=== PATIENT | female | born 1945 | race Caucasian/White ===

== ENCOUNTER 2017-01-29 09:24 | Inpatient (IN) | payer MEDICARE, OTHER ==
[2017-01-29] MEDS ORDERED: DiphenhydrAMINE 50 mg/ml Inj IVP STA (09:50)
--- NOTE | 2017-01-29 09:52 | ED PDOC ---
Arrival/HPI - General Chief Complaint: Headache Time Seen by Provider: 01/29/17 09:42 Historian: Family (who translated for patient) - History of Present Illness Narrative History of Present Illness (Text): 01/29/17 09:49 A 71 year old female presents to the emergency department complaining of a frontal headache for the past 3-4 days. History obtained through family who translated for patient. Patient notes blurry vision in bilateral eyes, right more than left. Patient denies any fever, chills, nausea, vomiting, diarrhea, abdominal pain, chest pain, shortness of breath or any other complaints. PMD: Dr. Gómez Time/Duration: Other (3-4 days) Symptom Course: Unchanged Quality: Other Context: Home Past Medical History - Provider Review Nursing Documentation Reviewed: Yes - Infectious Disease Hx of Infectious Diseases: None - Tetanus Immunization Tetanus Immunization: Unknown - Cardiac Hx Hypertension: Yes Hx Pacemaker: No - Pulmonary Hx Asthma: Yes (on nebulizer tx's at home) Hx Chronic Obstructive Pulmonary Disease (COPD): Yes Hx Emphysema: No - Neurological HX Cerebrovascular Accident: No Hx Dementia: No Hx Seizures: No - Renal Hx Renal Disorder: No - Hematological/Oncological Hx Cancer: No - Musculoskeletal/Rheumatological Hx Falls: No - Gastrointestinal Hx Gastroesophageal Reflux: No - Psychiatric Hx Depression: No Hx Emotional Abuse: No Hx Physical Abuse: No Hx Substance Use: No - Surgical History Hx Appendectomy: Yes Hx Cholecystectomy: Yes - Suicidal Assessment Feels Threatened In Home Enviroment: No Family/Social History - Physician Review Nursing Documentation Reviewed: Yes Family/Social History: No Known Family HX Smoking Status: Never Smoked Hx Alcohol Use: No Hx Substance Use: No Hx Substance Use Treatment: No Allergies/Home Meds Allergies/Adverse Reactions: Allergies cortisone Allergy (Verified 01/29/17 09:36) ITCHING Home Medications: Home Meds Medication Instructions Recorded Confirmed Albuterol HFA [Ventolin HFA 90 2 puff IH [id number] 06/15/12 01/29/17 mcg/actuation (8 g)] Metformin HCl [Fortamet] 500 mg PO DAILY 01/29/17 01/29/17 Metoprolol Succinate 50 mg PO DAILY 01/29/17 01/29/17 Review of Systems - Physician Review All systems were reviewed & negative as marked: Yes - Review of Systems Constitutional: absent: Fevers, Night Sweats Eyes: Vision Changes (blurry vision in both eye, right more than left) Respiratory: absent: SOB Cardiovascular: absent: Chest Pain Gastrointestinal: absent: Abdominal Pain, Diarrhea, Nausea, Vomiting Neurological: Headache Physical Exam Vital Signs Reviewed: Yes Vital Signs Temp Pulse Resp BP Pulse Ox 01/29/17 18:20 98.6 F 01/29/17 18:15 82 18 142/59 L 100 01/29/17 15:30 78 16 148/90 98 01/29/17 13:30 88 16 150/76 99 01/29/17 11:30 78 16 148/88 98 01/29/17 09:36 98.8 F 70 16 155/82 H 98 Temperature: Afebrile Blood Pressure: Hypertensive Pulse: Regular Respiratory Rate: Normal Appearance: Positive for: Well-Appearing, Non-Toxic, Comfortable Pain Distress: None Mental Status: Positive for: Alert and Oriented X 3 - Systems Exam Head: Present: Atraumatic, Normocephalic Pupils: Present: PERRL Extroacular Muscles: Present: EOMI Conjunctiva: Present: Normal Mouth: Present: Moist Mucous Membranes Neck: Present: Normal Range of Motion Respiratory/Chest: Present: Clear to Auscultation, Good Air Exchange. No: Respiratory Distress, Accessory Muscle Use Cardiovascular: Present: Regular Rate and Rhythm, Normal S1, S2. No: Murmurs Abdomen: Present: Normal Bowel Sounds. No: Tenderness, Distention, Peritoneal Signs Back: Present: Normal Inspection Upper Extremity: Present: Normal Inspection. No: Cyanosis, Edema Lower Extremity: Present: Normal Inspection. No: Edema Neurological: Present: GCS=15, CN II-XII Intact, Speech Normal Skin: Present: Warm, Dry, Normal Color. No: Rashes Psychiatric: Present: Alert, Oriented x 3, Normal Insight, Normal Concentration Medical Decision Making ED Course and Treatment: 01/29/17 09:49 Impression: A 71 year old female with a frontal headache and blurry vision. Plan: -- Head CT -- EKG -- Labs -- Urinalysis -- Benadryl and Reglan -- Reassess and disposition Progress Notes: EKG shows NSR at [address]/T wave changes. Interpreted by me. 01/29/17 10:23 Patients eye pressure measured 20 mm Hg in bilateral eyes. Report Date : 01/29/2017 11:00:15 PROCEDURE: CT HEAD WITHOUT CONTRAST. Dictator : Mata Martin MD IMPRESSION: No acute findings - Lab Interpretations Lab Results: 01/29/17 10:16 01/29/17 11:28 Lab Results 01/29/17 11:30: Urine Color Yellow, Urine Appearance Clear, Urine pH 7.5, Ur Specific [place] 1.015, Urine Protein Negative, Urine Glucose (UA) Negative, Urine Ketones Negative, Urine Blood Negative, Urine Nitrate Negative, Urine Bilirubin Negative, Urine Urobilinogen 0.2, Ur Leukocyte Esterase Negative 01/29/17 11:28: Free T4 1.27, Total T3 0.99, TSH 3rd Generation 2.24, Alcohol, Quantitative < 10 01/29/17 11:28: Sodium 140, Potassium 3.9, Chloride 101, Carbon Dioxide 29, Anion Gap 14, BUN 10, Creatinine 0.7, Est GFR ( Amer) > 60, Est GFR (Non- Af Amer) > 60, Random Glucose 104, Calcium 9.6, Magnesium 2.2, Total Bilirubin 0.5, AST 20, ALT 32, Alkaline Phosphatase 90, Lactate Dehydrogenase 486, Total Creatine Kinase 53, Troponin I < 0.01, Total Protein 7.1, Albumin 3.9, Globulin 3.2, Albumin/Globulin Ratio 1.2 01/29/17 10:16: PT 10.7, INR 0.99, APTT 25.6 01/29/17 10:16: WBC 7.9, RBC 4.63, Hgb 13.5, Hct 40.3, MCV 87.0, MCH 29.2, MCHC 33.5, RDW 14.8 H, Plt Count 231, MPV 10.8, Gran % 62.7, Lymph % (Auto) 29.7, [place] % (Auto) 7.3 H, Eos % (Auto) 0.0 L, Baso % (Auto) 0.3, Gran # 4.93, Lymph # 2.3, [place] # 0.6, Eos # 0.0, Baso # 0.02, ESR 17 I have reviewed the lab results: Yes - RAD Interpretation Radiology Orders: 01/29/17 09:50 HEAD W/O CONTRAST [CT] Stat 01/29/17 11:57 BRAIN WITHOUT CONTRAST [MRI] Stat 01/29/17 11:58 MRA HEAD WITHOUT CONTRAST [MRI] Stat CAROTID & VERTEBRAL DUPLEX [US] Routine - Medication Orders Current Medication Orders: Acetaminophen (Tylenol 325mg Tab) 650 mg PO Q6H PRN PRN Reason: Headache Aspirin (Ecotrin) 81 mg PO DAILY [facility] Atorvastatin Calcium (Lipitor) 40 mg PO DAILY [facility] Last Admin: 01/29/17 18:11 Dose: 40 mg Insulin Human Regular (Humulin R Med) 0 units SC ACHS [facility] PRN Reason: Protocol Last Admin: 01/29/17 17:00 Dose: Metoprolol Succinate (Toprol Xl) 50 mg PO DAILY [facility] Discontinued Medications Aspirin (Aspirin) 325 mg PO STAT STA Stop: 01/29/17 12:00 Last Admin: 01/29/17 12:19 Dose: 325 mg Diphenhydramine HCl (Benadryl) 25 mg IVP STAT STA Stop: 01/29/17 09:51 Last Admin: 01/29/17 10:30 Dose: 25 mg Metoclopramide HCl (Reglan) 10 mg IVP STAT STA Stop: 01/29/17 09:51 Last Admin: 01/29/17 10:30 Dose: 10 mg Pantoprazole Sodium (Protonix Inj) 40 mg IVP DAILY [facility] Pantoprazole Sodium (Protonix Inj) 40 mg IVP DAILY [facility] Pantoprazole Sodium (Protonix Inj) 40 mg IVP STAT STA Stop: 01/29/17 15:17 Last Admin: 01/29/17 15:34 Dose: 40 mg - Scribe Statement The provider has reviewed the documentation as recorded by the Breonna Robertson Provider Scribe Attestation: All medical record entries made by the Rylanibmary were at my direction and personally dictated by me. I have reviewed the chart and agree that the record accurately reflects my personal performance of the history, physical exam, medical decision making, and the department course for this patient. I have also personally directed, reviewed, and agree with the discharge instructions and disposition. Disposition/Present on Arrival - Present on Arrival Any Indicators Present on Arrival: No History of DVT/PE: No History of Uncontrolled Diabetes: No Urinary Catheter: No History of Decub. Ulcer: No History Surgical Site Infection Following: None - Disposition Have Diagnosis and Disposition been Completed?: Yes Diagnosis: Headache, Blurry vision Disposition: HOSPITALIZED
[2017-01-29 10:20] LABS: BASO # 0.02 K/mm3 (0.0-2.0); BASO % 0.3 % (0.0-3.0); GRAN # 4.93 (1.4-6.5); GRAN % 62.7 % (50.0-68.0); HEMOGLOBIN 13.5 g/dL (12.0-16.0); LYMPH # 2.3 (1.2-3.4); LYMPH % 29.7 % (22.0-35.0); MEAN CORPUSCULAR HEMOGLOBIN 29.2 pg (25.0-35.0); MEAN CORPUSCULAR HGB CONC 33.5 g/dl (31.0-37.0); MEAN PLATELET VOLUME 10.8 fl (7.0-11.0); MONO # 0.6 (0.1-0.6); MONO % 7.3 % (1.0-6.0); PLATELET COUNT 231 10^3/uL (120.0-450.0); RBC 4.63 10^6/uL (3.5-6.1); RED CELL DISTRIBUTION WIDTH 14.8 % (11.5-14.5); WHITE BLOOD COUNT 7.9 10^3/ul (4.5-11.0)
[2017-01-29 10:35] LABS: INR 0.99 (0.93-1.08); PARTIAL THROMBOPLASTIN TIME 25.6 Seconds (23.7-30.8); PROTHROMBIN TIME 10.7 Seconds (9.9-11.8)
--- NOTE | 2017-01-29 11:01 | CT ---
PROCEDURE: CT HEAD WITHOUT CONTRAST. HISTORY: rose COMPARISON: None available. TECHNIQUE: Axial computed tomography images were obtained through the head/brain without intravenous contrast. Radiation dose: Total exam DLP = 689 mGy-cm. This CT exam was performed using one or more of the following dose reduction techniques: Automated exposure control, adjustment of the mA and/or kV according to patient size, and/or use of iterative reconstruction technique. FINDINGS: HEMORRHAGE: No intracranial hemorrhage. BRAIN: No mass effect or edema. Chronic microvascular changes. Mild atrophy VENTRICLES: Unremarkable. No hydrocephalus. CALVARIUM: Unremarkable. PARANASAL SINUSES: Unremarkable as visualized. No significant inflammatory changes. MASTOID AIR CELLS: Unremarkable as visualized. No inflammatory changes. OTHER FINDINGS: None. IMPRESSION: No acute findings
[2017-01-29 11:36] LABS: PH,URINE 7.5 (4.7-8.0); URINE BILIRUBIN NEGATIVE (NEGATIVE); URINE BLOOD NEGATIVE (NEGATIVE); URINE GLUCOSE (UA) NEGATIVE (NEGATIVE); URINE LEUKOCYTE ESTERASE NEGATIVE Leu/uL (NEGATIVE); URINE NITRATE NEGATIVE (NEGATIVE); URINE PROTEIN NEGATIVE mg/dL (<30 mg/dL); URINE UROBILINOGEN 0.2 E.U./dL (<1 E.U./dL)
[2017-01-29 11:39] LABS: URINE APPEARANCE CLEAR (CLEAR); URINE COLOR YELLOW (YELLOW)
[2017-01-29 11:43] LABS: ALB/GLOB RATIO 1.2 (1.1-1.8); ALBUMIN 3.9 g/dL (3.0-4.8); ALT/SGPT 32 U/L (7-56); AST/SGOT 20 U/L (15-39); BLOOD UREA NITROGEN 10 mg/dL (7-21); CALCIUM 9.6 mg/dL (8.4-10.5); GFR AFRICAN-AMERICAN > 60; GFR NON-AFRICAN AMERICAN > 60; MAGNESIUM 2.2 mg/dL (1.7-2.2)
[2017-01-29 11:58] LABS: TROPONIN I < 0.01 ng/mL
--- NOTE | 2017-01-29 11:59 | CP.PCM.HP ---
History of Present Illness - History of Present Illness History of Present Illness: This is a 71Y Azeri speaking F with PMH HTN, NIDDM who came to ED for headache and vision changes x 3 days. She did not check her BP at this time. Nothing made it worse or better. The headache is located in the front of her head. She has never had this happen before. The patient denies CP, SOB, n/v/d, numbness/ tingling, fever, chills or dysuria. She reports her headache and vision changes have improved. She also admits to having some constipation and epigastric pain after eating. Patient reports she has never seen Certified Performance Technologist. PMH: HTN, NIDDM PSH: Cholecystectome Home meds: Metoprolol 50qd, Metformin 500mg daily ALL: Cortisone- itching SH: Denies EtOH, tobacco or drug use. Lives with family. Ambulates on own. FH: Denies PMD: Dr. Brink Present on Admission - Present on Admission Any Indicators Present on Admission: No Review of Systems - Constitutional Constitutional: Headache. absent: Chills, Fatigue, Weakness - EENT Eyes: absent: Change in Vision Ears: absent: Dizziness Nose/Mouth/Throat: absent: Dysphagia, Odynophagia - Cardiovascular Cardiovascular: absent: Chest Pain, Leg Edema, Leg Ulcers, Syncope - Respiratory Respiratory: absent: Dyspnea, Hemoptysis, Chest Congestion - Gastrointestinal Gastrointestinal: Constipation. absent: Abdominal Pain, Change in Stool Character, Diarrhea, Nausea, Vomiting - Musculoskeletal Musculoskeletal: absent: Arthralgias, Numbness, Tingling - Integumentary Integumentary: absent: Change in Pigmentation, Changing Lesions - Neurological Neurological: absent: Numbness, Syncope, Tingling, Vertigo, Weakness - Psychiatric Psychiatric: absent: Anxiety, Depression Past Patient History - Infectious Disease Hx of Infectious Diseases: None - Tetanus Immunizations Tetanus Immunization: Unknown - Past Social History Smoking Status: Never Smoked - CARDIAC Hx Hypertension: Yes Hx Pacemaker: No - PULMONARY Hx Asthma: Yes (on nebulizer tx's at home) Hx Chronic Obstructive Pulmonary Disease (COPD): Yes Hx Emphysema: No - NEUROLOGICAL HX Cerebrovascular Accident: No Hx Dementia: No Hx Seizures: No - RENAL Hx Chronic Kidney Disease: No - HEMATOLOGICAL/ONCOLOGICAL Hx Cancer: No - MUSCULOSKELETAL/RHEUMATOLOGICAL Hx Falls: No - GASTROINTESTINAL Hx Gastroesophageal Reflux: No - PSYCHIATRIC Hx Depression: No Hx Emotional Abuse: No Hx Physical Abuse: No Hx Substance Use: No - SURGICAL HISTORY Hx Appendectomy: Yes Hx Cholecystectomy: Yes Meds Allergies/Adverse Reactions: Allergies Allergy/AdvReac Type Severity Reaction Status Date / Time cortisone Allergy ITCHING Verified 01/29/17 09:36 Physical Exam - Constitutional Appears: No Acute Distress - Head Exam Head Exam: ATRAUMATIC, NORMAL INSPECTION, NORMOCEPHALIC - Eye Exam Eye Exam: Normal appearance Pupil Exam: NORMAL ACCOMODATION, PERRL - ENT Exam ENT Exam: Mucous Membranes Moist - Neck Exam Neck exam: Positive for: Normal Inspection - Respiratory Exam Respiratory Exam: Clear to Auscultation Bilateral, NORMAL BREATHING PATTERN. absent: Rhonchi, Wheezes, Stridor - Cardiovascular Exam Cardiovascular Exam: REGULAR RHYTHM, +S1, +S2. absent: Diastolic murmur, Gallop , Irregular Rhythm, Rubs, Systolic Murmur - GI/Abdominal Exam GI & Abdominal Exam: Normal Bowel Sounds, Soft, Tenderness (epigastric). absent : Hernia, Mass, Rigid - Extremities Exam Extremities exam: Positive for: normal inspection. Negative for: calf tenderness, tenderness - Neurological Exam Neurological exam: Alert, CN II-XII Intact - Psychiatric Exam Psychiatric exam: Normal Affect, Normal Mood - Skin Skin Exam: Dry, Intact, Normal Color Results - Vital Signs Recent Vital Signs: Last Vital Signs Temp 98.8 F 01/29/17 09:36 Pulse 70 01/29/17 09:36 Resp 16 01/29/17 09:36 BP 155/82 H 01/29/17 09:36 Pulse Ox 98 01/29/17 09:36 - Labs Result Diagrams: 01/29/17 10:16 01/29/17 11:28 Labs: Laboratory Results - last 24 hr 01/29/17 01/29/17 01/29/17 10:16 10:16 11:28 WBC 7.9 RBC 4.63 Hgb 13.5 Hct 40.3 MCV 87.0 MCH 29.2 MCHC 33.5 RDW 14.8 H Plt Count 231 MPV 10.8 Gran % 62.7 Lymph % (Auto) 29.7 [place] % (Auto) 7.3 H Eos % (Auto) 0.0 L Baso % (Auto) 0.3 Gran # 4.93 Lymph # 2.3 [place] # 0.6 Eos # 0.0 Baso # 0.02 ESR 17 PT 10.7 INR 0.99 APTT 25.6 Sodium 140 Potassium 3.9 Chloride 101 Carbon Dioxide 29 Anion Gap 14 BUN 10 Creatinine 0.7 Est GFR ( Amer) > 60 Est GFR (Non-Af Amer) > 60 Random Glucose 104 Calcium 9.6 Magnesium 2.2 Total Bilirubin 0.5 AST 20 ALT 32 Alkaline Phosphatase 90 Lactate Dehydrogenase 486 Total Creatine Kinase 53 Troponin I < 0.01 Total Protein 7.1 Albumin 3.9 Globulin 3.2 Albumin/Globulin Ratio 1.2 Urine Color Urine Appearance Urine pH Ur Specific [place] Urine Protein Urine Glucose (UA) Urine Ketones Urine Blood Urine Nitrate Urine Bilirubin Urine Urobilinogen Ur Leukocyte Esterase 01/29/17 11:30 WBC RBC Hgb Hct MCV MCH MCHC RDW Plt Count MPV Gran % Lymph % (Auto) [place] % (Auto) Eos % (Auto) Baso % (Auto) Gran # Lymph # [place] # Eos # Baso # ESR PT INR APTT Sodium Potassium Chloride Carbon Dioxide Anion Gap BUN Creatinine Est GFR ( Amer) Est GFR (Non-Af Amer) Random Glucose Calcium Magnesium Total Bilirubin AST ALT Alkaline Phosphatase Lactate Dehydrogenase Total Creatine Kinase Troponin I Total Protein Albumin Globulin Albumin/Globulin Ratio Urine Color Yellow Urine Appearance Clear Urine pH 7.5 Ur Specific [place] 1.015 Urine Protein Negative Urine Glucose (UA) Negative Urine Ketones Negative Urine Blood Negative Urine Nitrate Negative Urine Bilirubin Negative Urine Urobilinogen 0.2 Ur Leukocyte Esterase Negative Assessment & Plan - Assessment and Plan (Free Text) Assessment: This is a 71Y Azeri speaking F with PMH HTN, NIDDM who came to ED for headache and vision changes x 3 days. Plan: 1. Headache/Vision changes - r/o cardiac or neuro etiology - Head CT negative - EKG showed NSR - Lipid panel normal - Thyroid studies normal - Troponin neg x 1- will trend - Cardio Consulted - Neuro consulted - MRI brain, MRA head - Carotid doppler - Echo 2. NIDDM - ISS, BGM ACHS - HH diet/Carb cons diet - HgbA1c pending 3. HTN - Continue Metoprolol 50qq GI ppx: Protonix DVT ppx: SCDs Case seen, discussed and reviewed with attending Marco Valera PGY2 - Date & Time Date: 01/29/17 Time: 15:42
[2017-01-29 14:25] LABS: HDL CHOLESTEROL 56 mg/dL (29-60)
[2017-01-29 14:35] LABS: LDL CHOLESTEROL 103 mg/dL (0-129)
[2017-01-29 14:38] LABS: FREE T4 1.27 ng/dL (0.78-2.19)
[2017-01-29 14:52] LABS: T3 0.99 ng/mL (0.97-1.69)
[2017-01-29] MEDS: Insulin Reg-MEDIUM-Coverage SC SCH ×2 (17:00→22:23)
--- NOTE | 2017-01-29 17:11 | US ---
PROCEDURE: Carotid artery duplex ultrasound HISTORY: Carotid stenosis TIA PHYSICIAN(S): Fady Osullivan MD. TECHNIQUE: Duplex sonography and color-flow Doppler were used to evaluate the carotid bifurcations and limited segments of the vertebral arteries bilaterally. The exam is somewhat limited by tortuous vessels. FINDINGS: There is mild smooth hypoechoic plaque noted at the carotid bifurcations bilaterally. The peak systolic velocity in the proximal right internal carotid artery is 76 cm/sec. This corresponds to a 20 to 39% proximal right ICA stenosis. Normal systolic velocities are noted in the proximal right external carotid artery. There is antegrade flow in the right vertebral artery. The peak systolic velocity in the proximal left internal carotid artery is 76 cm/sec. This corresponds to a 20 to 39% proximal left ICA stenosis. Normal systolic velocities are noted in the proximal left external carotid artery. There is antegrade flow in the left vertebral artery. IMPRESSION: 1. Bilateral 20-39% proximal ICA stenoses. 2. Antegrade flow in both vertebral arteries.
--- NOTE | 2017-01-29 19:49 | CON ---
DATE: 01/29/2017 HISTORY OF PRESENT ILLNESS: The patient is a 71-year-old woman with a history of diabetes mellitus as well as bronchospasm and hypertension, who presents with a headache as well as chest pain. Her chest pain is described as epigastric and focal in nature. The patient has no previous cardiac history. She does describe a headache with blurry vision. No previous myocardial infarction or heart condition noted. SOCIAL HISTORY: Negative smoker. REVIEW OF SYSTEMS: No additional symptoms from above. PHYSICAL EXAMINATION: VITAL SIGNS: Blood pressure is 148/88, heart rate in the 70s, normal sinus rhythm. NECK: Negative JVD. LUNGS: Without rales. HEART: Reveals S1 and S2. EXTREMITIES: Without edema. EKG shows normal sinus rhythm with no acute changes. LABORATORY DATA: Hemoglobin is 13.5. Troponins negative x1. IMPRESSION: 1. Chest pain which is atypical and more likely from gastrointestinal source. 2. No evidence for acute coronary syndrome. 3. Headache. 4. Diabetes mellitus. 5. Blurry vision. 6. Obesity. 7. History of bronchospasm. Given these findings, we will obtain serial troponins. An echocardiogram has been ordered. A trial of Protonix has been ordered. Fady Ibarra MD
[2017-01-29 21:23] VITALS: BMI 30.2
[2017-01-29] MEDS ORDERED: EPINEPHrine 1 mg/ml (1:1000) Inj ONE (21:25)
[2017-01-29 23:33] VITALS: O2SAT 97
--- NOTE | 2017-01-30 01:22 | CON ---
REASON FOR CONSULTATION: Headache. HISTORY OF PRESENT ILLNESS: The patient is a 71-year-old female who has been asked for evaluation of headaches. The patient said that she is having blurred vision over the last 3 days mostly on the right side. She was also experiencing headache mostly in front of the head on the right side. It was pressure like. The headache was not associated with any nausea, vomiting, photophobia or phonophobia. There are no visual changes and the headache was not getting better, she decided to come to the emergency room. She denies any focal weakness in the arms or legs. Never lost her vision in one eye or the other. REVIEW OF SYSTEMS: Denies any chest pain, shortness of breath or abdominal pain. She does have some constipation. Denies any diarrhea, dysuria, cough, or sputum production. PAST MEDICAL HISTORY: Includes hypertension and diabetes mellitus. PAST SURGICAL HISTORY: Includes cholecystectomy. MEDICATIONS AT HOME: Include metoprolol and Metformin. ALLERGIES: CORTISONE. SOCIAL HISTORY: Denies smoking, use of alcohol, or illicit drugs. FAMILY HISTORY: Reviewed and noncontributory to the case. PHYSICAL EXAMINATION: GENERAL: The patient is an elderly pleasant female lying on the bed, in no acute distress. VITAL SIGNS: Her blood pressure is 142/59, heart rate is 82 per minute, breathing at the rate 16 per minute, and temperature is 98.6 degrees Fahrenheit. HEENT: Head is normocephalic, atraumatic. NECK: Supple. There are no carotid bruits. LUNGS: Clear. CARDIOVASCULAR: S1 and S2 audible. No murmurs. ABDOMEN: Soft and nontender. Bowel sounds are present. NEUROLOGIC: Mental Status: The patient is awake, alert and oriented to time, place and person. Speech is fluent. Naming and repetition are normal. Memory and concentration are intact. Cranial Nerve Examination: Pupils are 3 mm, bilaterally reactive to light. Visual marrero are full. Extraocular movements are intact. There is no facial asymmetry. Palate is upgoing bilaterally and tongue is midline. Motor Examination: Tone is normal and power is 5/5 bilaterally in all extremities, reflexes+1 and symmetrical. Plantars downgoing bilaterally. Cerebellar Examination: [id number] shows no dysmetria. The gait is deferred at the moment. Sensory Examination: Intact to soft touch and pin prick. LABORATORY DATA: Labs reviewed shows WBC of 7.9, hemoglobin 13.5, hematocrit 40.3 and platelets of 231. Her ESR is 17. Her INR is 0.99. Sodium is 140, potassium 3.9, chloride of 101, carbon dioxide of 29, BUN of 10, creatinine 0.7 and glucose of 104. She had MRI of the brain done which reviewed did not show any acute intracranial pathology; however, please followup the official report. IMPRESSION: Headaches associated with blurred vision, which seem to be getting better now. RECOMMENDATIONS: 1. Please follow the results of the MRI of the brain which was done earlier. 2. The patient had a carotid ultrasound which shows bilateral 20-39% proximal ICA stenosis which is nonsignificant. 3. The patient may be continued on Tylenol as needed for her headache. If her headache persists, she may be started on some nonsteroidal anti-inflammatory drugs like naproxen 500 mg twice a day on an as needed basis. 4. Please follow up the official results of the MRI of the brain. 5. Please continue supportive care on the treatment and if her vision continues to be blurry, consider Ophthalmology evaluation as well. 6. Please continue the treatment. Thank you for the opportunity to participate in the care of this patient. Sharmaine Macdonald MD
[2017-01-30] MEDS: Levalbuterol 0.63 MG/3 ML Inhal Soln UD IH SCH ×4 (02:54→19:53)
--- NOTE | 2017-01-30 05:20 | HP ---
HISTORY OF PRESENT ILLNESS: The patient is a 71-year-old obese female presented to the emergency room. According to the triage note, the patient came to the emergency room as a walk-in, complaining of right-sided headache, blurred vision and dizziness. The patient reported the symptoms to the triage nurse. According to the ER physician evaluation, the patient is complaining of right-sided and frontal headache for the last few days. The patient is also complaining of bilateral blurry vision, right more than the left and also dizzy. CODE STATUS: FULL CODE. LIVING WILL/ADVANCE DIRECTIVE: None. Height is 5 feet 1 inch. Weight is 160 pounds. BMI is 30.2. ALLERGIES: TO CORTISONE. HOME MEDICATIONS: Metoprolol 50 mg daily, metformin 500 mg daily, Ventolin HFA and MDI albuterol nebulizer. SOCIAL HISTORY: Negative for substance abuse. Negative for alcohol abuse. Negative for smoking. Negative for any communicable or traversable diseases. PAST MEDICAL HISTORY: Significant for hypertension, history of type 2 diabetes, history of asthma, history of appendectomy, cholecystectomy, history of anxiety. The patient's past medical history is also significant for history of normocytic anemia in the past, history of type 2 [id number]-cqriwxzgm diabetes mellitus. Past medical history is also significant for history of BI-RAD 2 mammogram, history of multiple bilateral breast cysts. 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 The patient's past medical history is significant for asthma, hypertension, anxiety disorder, history of pneumonia, history of anxiety disorder, history of atypical chest pain. The patient's past medical history is significant for history of atypical chest pain. The patient's past medical history is significant for history of anxiety disorder, history of chest pain, history of breast cysts, history of chronic obstructive pulmonary disease, history of asthma, history of exacerbation of chronic obstructive pulmonary disease. The patient's past medical history is also significant for history of syncope, history of dizziness, palpitations, hypertension, history of anxiety, history of obesity, history of acute exacerbation of asthma, history of normocytic anemia, history of asthmatic bronchitis, history of chronic obstructive pulmonary disease, obesity, hepatic cyst, history of acute exacerbation of chronic obstructive pulmonary disease, history of central renal cyst, history of chest pain, history of microvascular ischemic disease of the brain, history of left breast densities, history of few stress test done, which was negative for any ischemia. The patient is seen in stretcher #14 in the emergency room. The patient's menstrual history is not available. The patient is postmenopausal. PHYSICAL EXAMINATION: VITAL SIGNS: The patient's detailed history is obtained through the patient's friend and the . T-max is afebrile, heart rate 70-78, blood pressure 155/82, 148/88, respirations 18 and O2 saturation 98%. The patient was seen between the hours of 11 a.m. and 12 noon. HEENT: The patient's head examination, normocephalic, atraumatic. HEENT examination shows pink conjunctivae. Anicteric sclerae. No oropharyngeal lesion. NECK: No neck rigidity. No temporal tenderness noted. No neck rigidity. Soft carotid bruits. CHEST: Kyphosis. CARDIOVASCULAR: S1 and S2. Regular rhythm. LUNGS: Shows no rales, crackles or wheezing. ABDOMEN: Protuberant, obese. Positive bowel sounds. GENITALIA: Female. RECTAL: Deferred. EXTREMITIES: Shows no pitting edema. No calf tenderness. No James's signs. MUSCULOSKELETAL: Examination shows a body mass index of greater than 30. Cranial nerves II-XII are limited. GAIT: Examination is not tested. VASCULAR: Peripheral pulses. PSYCHIATRIC: Are not applicable. Cranial nerves II-XII are limited. DIAGNOSTICS: CBC is within normal limits. ESR is 17. PT and PTT is normal. Sodium 140, potassium 3.9, chloride 101, CO2 29, anion gap 14, BUN 10, creatinine 0.7. GFR is greater than 60. Glucose 91, hemoglobin A1c is 5.9, magnesium 2.2. Troponin is negative. Cholesterol 176, LDL 103, TSH 2.24, total T4 is pending, free T4 noted. Urine pH 7.5. Specific gravity 1.015. Leukocyte esterase is negative. Nitrite negative. Alcohol level less than 10. The patient had CAT scan of the head done which was negative, which shows chronic microvascular ischemic disease and cerebral cortical atrophy of the brain. EKG done in the emergency room shows sinus rhythm. Q-wave in 3. No ST elevation depression noted. IMPRESSION AND PLAN: 1. Right-sided headache with blurred vision and dizziness. Etiology undetermined. Questionable transient ischemic infarct. 2. Hypertension. 3. Type 2 mao-ruvbbhp-pieozcxdi diabetes mellitus. 4. Asthma. 5. Hypercholesterolemia with elevated LDL. 6. Bilateral 20-39% proximal internal carotid artery stenosis. 7. Chronic microvascular ischemic disease of the brain with cerebral cortical atrophy of the brain. 8. At present, the patient has been admitted to telemetry. Serial labs are ordered. Serial cardiac enzymes ordered. Consultation with Neurology and Cardiology ordered. The patient is started on aspirin 81 mg p.o. daily, regular insulin sliding scale coverage a.c. and at bedtime, Lipitor 40 mg daily, Protonix 40 mg daily for GI prophylaxis. The patient is ordered Protonix 40 mg daily. The patient is ordered resumption of metoprolol 50 mg which she is taking at home. The patient will be ordered nebulizer treatment for her asthma which will be Xopenex. The patient will be ordered Xopenex 0.63 mg every 6 hours. The patient will be ordered MRI of the brain. Repeat EKG, echo and Doppler. The patient will be started on heart healthy with moderate carbohydrate diet. The patient will be ordered out of bed to chair. The patient will be ordered DVT and GI prophylaxis. At present, the patient's condition, diagnosis, treatment plan, management plan discussed with the patient's friend who is acting as a next of kin. She also acted as a die fitter regarding the details of the patient's medical history. At present, the patient's further management will be dependent upon the patient's clinical condition, hemodynamic status, as per the patient's response to therapeutic intervention,as per the patient's diagnostic test results and as per recommendation by Cardiology and Neurology. The patient will also be ordered EEG. At present, the patient was seen in the emergency room in stretcher #14. The patient's further management will be dependent upon the patient's clinical condition, hemodynamic status, as per the patient's response to therapeutic intervention and data. Dictated and electronically signed. Miles Mac MD [facility] # [id number]
[2017-01-30] MEDS: Pantoprazole 40 mg EC Tab PO SCH ×2 (05:30→17:41)
[2017-01-30 07:58] LABS: FREE T4 1.13 ng/dL (0.78-2.19); T4 8.1 ug/dL (5.5-11.0)
[2017-01-30] MEDS: Insulin Reg-MEDIUM-Coverage SC SCH ×3 (08:38→17:39)
--- NOTE | 2017-01-30 08:39 | MRI ---
PROCEDURE: MRI BRAIN WITHOUT CONTRAST HISTORY: headache blurred vision COMPARISON: None. TECHNIQUE: Multiplanar, multisequence MR images of the brain were obtained without intravenous contrast enhancement. FINDINGS: HEMORRHAGE: None DWI: No evidence of an acute or early subacute infarction. BRAIN PARENCHYMA: No mass effect or edema. Chronic microvascular changes are seen in both hemispheres. There is mild atrophy VENTRICLES: Unremarkable. No hydrocephalus. CRANIUM: Unremarkable. ORBITS: Grossly unremarkable. PARANASAL SINUSES/MASTOIDS: Clear VASCULAR SYSTEM: Skull base flow voids intact. OTHER FINDINGS: None. IMPRESSION: No acute intracranial findings
--- NOTE | 2017-01-30 08:42 | MRI ---
PROCEDURE: Magnetic Resonance Angiography Brain HISTORY: blurred vision, headache COMPARISON: None available. TECHNIQUE: 3D time of flight MR angiography of the intracranial arteries was performed. Rotating maximum intensity projection images were generated. FINDINGS: INTERNAL CEREBRAL ARTERIES: Unremarkable. The skull base, petrous, cavernous and supraclinoid segments are bilaterally widely patient. ANTERIOR CEREBRAL ARTERIES: Unremarkable. A1 and A2 segments are widely patent. Smaller distal branches unremarkable, as visualized. MIDDLE CEREBRAL ARTERIES: Unremarkable. M1 and M2 segments are widely patent. Perisylvian branches grossly symmetric. POSTERIOR CIRCULATION: Basilar Artery: Unremarkable. Distal Vertebral Arteries: Unremarkable. Posterior Cerebral Arteries: Unremarkable. Posterior Inferior Cerebellar Arteries: Unremarkable. ANEURYSM/ VASCULAR MALFORMATIONS: None. OTHER FINDINGS: The report concurs with the preliminary [facility] report IMPRESSION: Unremarkable MR angiography of the brain.
[2017-01-30 09:01] LABS: BASO # 0.02 K/mm3 (0.0-2.0); BASO % 0.3 % (0.0-3.0); GRAN # 3.88 (1.4-6.5); GRAN % 59.5 % (50.0-68.0); LYMPH # 2.2 (1.2-3.4); LYMPH % 33.3 % (22.0-35.0); MEAN CELL VOLUME 88.7 fl (80.0-105.0); MEAN CORPUSCULAR HEMOGLOBIN 29.3 pg (25.0-35.0); MEAN PLATELET VOLUME 10.5 fl (7.0-11.0); MONO # 0.5 (0.1-0.6); MONO % 6.9 % (1.0-6.0); PLATELET COUNT 196 10^3/uL (120.0-450.0); RBC 4.44 10^6/uL (3.5-6.1); RED CELL DISTRIBUTION WIDTH 14.7 % (11.5-14.5); WHITE BLOOD COUNT 6.5 10^3/ul (4.5-11.0)
[2017-01-30] MEDS ORDERED: Metoprolol Succinate 50 mg XL Tab PO SCH (10:00)
[2017-01-30 11:52] LABS: ALB/GLOB RATIO 1.3 (1.1-1.8); ALBUMIN 3.7 g/dL (3.0-4.8); ALT/SGPT 26 U/L (7-56); AST/SGOT 44 U/L (15-39); BLOOD UREA NITROGEN 11 mg/dL (7-21); CALCIUM 9.2 mg/dL (8.4-10.5); GFR AFRICAN-AMERICAN > 60; GFR NON-AFRICAN AMERICAN > 60
--- NOTE | 2017-01-30 16:30 | PN ---
DATE: 01/30/2017 SUBJECTIVE: The patient's headache has gone. She still complains of occasional blurry vision. PHYSICAL EXAMINATION VITAL SIGNS: Blood pressure is 126/70, heart rate in the 80s. Normal sinus rhythm. NECK: Negative JVD. LUNGS: Without rales. HEART: S1, S2. EXTREMITIES: Without edema. LABORATORY DATA: Includes troponins are negative x2. Thyroid functions are normal. The hemoglobin is 13. Preliminary echocardiogram reveals good LV function with no LV outflow obstruction. Mildly elevated pulmonary pressures are noted. IMPRESSION: 1. Headache, which is now resolved. 2. No cardiac cause of her chest pain, which is now resolved with Protonix. 3. Diabetes mellitus. 4. Obesity. 5. History of bronchospasm. PLAN: Given these findings, we will continue Pepcid. We will DC telemetry. Because of her cardiac risk factors, I have discussed with the patient about an outpatient stress test which we will arrange. Fady Ibarra MD
--- NOTE | 2017-01-30 16:53 | CARD ---
APPROVED REPORT EXAM: Two-dimensional and M-mode echocardiogram with Doppler and color Doppler. INDICATION Chest Pain 2D DIMENSIONS Left Atrium (2D)4.0 (1.6-4.0cm)IVSd1.1 (0.7-1.1cm) LVDd4.0 (3.9-5.9cm)PWd1.3 (0.7-1.1cm) LVDs2.7 (2.5-4.0cm)FS (%) 32.8 % LVEF (%)61.7 (>50%) M-Mode DIMENSIONS Aortic Root3.00 (2.2-3.7cm)Aortic Cusp Exc.1.60 (1.5-2.0cm) Aortic Valve AoV Peak Pevwpffi485.0cm/sAoV VTI36.1cmAO Peak GR.11mmHg LVOT Peak Tuyjecbf362.0cm/sLVOT VTI27.20cmAO Mean GR.6mmHg Mitral Valve MV E Rsbbuojg21.4cm/sMV A Tuothksw47.4cm/sE/A ratio0.6 TDI Lateral E' Peak V12.30cm/sMedial E' Peak V8.68cm/sE/Lateral E'3.9 E/Medial E'5.6 Pulmonary Valve PV Peak Zfdnmkhn680.0cm/sPV Peak Grad.4mmHg Tricuspid Valve TR Peak Drupuajf971au/sRAP SZPNLPWO16crEuMM Peak Gr.25mmHg WIML90ojXz LEFT VENTRICLE The left ventricle is normal size. There is mild concentric left ventricular hypertrophy. The left ventricular function is normal. The left ventricular ejection fraction is within the normal range. There is normal LV segmental wall motion. Transmitral Doppler flow pattern is Grade I-abnormal relaxation pattern. RIGHT VENTRICLE The right ventricle is normal size. The right ventricle is mildly hypertrophied. The right ventricular systolic function is normal. ATRIA The left atrium size is normal. The right atrium size is normal. AORTIC VALVE The aortic valve is not well visualized. MITRAL VALVE The mitral valve is mildly thickened. TRICUSPID VALVE There is mild pulmonary hypertension. GREAT VESSELS The aortic root is normal in size. The IVC is normal in size and collapses >50% with inspiration. PERICARDIAL EFFUSION There is a small loculated anterior pericardial effusion. <Conclusion> The left ventricle is normal size. There is mild concentric left ventricular hypertrophy. The left ventricular function is normal. The left ventricular ejection fraction is within the normal range. There is normal LV segmental wall motion. Transmitral Doppler flow pattern is Grade I-abnormal relaxation pattern. There is mild pulmonary hypertension. There is a small loculated anterior pericardial effusion.
--- NOTE | 2017-01-30 17:01 | CARD ---
APPROVED REPORT EKG Measurement Heart [id number] <Conclusion> Normal sinus rhythm Normal ECG
--- NOTE | 2017-01-30 17:06 | CP.PCM.DIS ---
Provider - Provider Date of Admission: 01/29/17 13:10 Attending physician: Miles Mac MD Primary care physician: Cuba Gómez MD Consults: cardio-davis Neuro-badillo Time Spent in preparation of Discharge (in minutes): 40 Hospital Course - Lab Results Lab Results: Most Recent Lab Values WBC 6.5 10^3/ul (4.5-11.0) 01/30/17 06:30 RBC 4.44 10^6/uL (3.5-6.1) 01/30/17 06:30 Hgb 13.0 g/dL (12.0-16.0) 01/30/17 06:30 Hct 39.4 % (36.0-48.0) 01/30/17 06:30 MCV 88.7 fl (80.0-105.0) 01/30/17 06:30 MCH 29.3 pg (25.0-35.0) 01/30/17 06:30 MCHC 33.0 g/dl (31.0-37.0) 01/30/17 06:30 RDW 14.7 % (11.5-14.5) H 01/30/17 06:30 Plt Count 196 10^3/uL (120.0-450.0) 01/30/17 06:30 MPV 10.5 fl (7.0-11.0) 01/30/17 06:30 Gran % 59.5 % (50.0-68.0) 01/30/17 06:30 Lymph % (Auto) 33.3 % (22.0-35.0) 01/30/17 06:30 [place] % (Auto) 6.9 % (1.0-6.0) H 01/30/17 06:30 Eos % (Auto) 0.0 % (1.5-5.0) L 01/30/17 06:30 Baso % (Auto) 0.3 % (0.0-3.0) 01/30/17 06:30 Gran # 3.88 (1.4-6.5) 01/30/17 06:30 Lymph # 2.2 (1.2-3.4) 01/30/17 06:30 [place] # 0.5 (0.1-0.6) 01/30/17 06:30 Eos # 0.0 (0.0-0.7) 01/30/17 06:30 Baso # 0.02 K/mm3 (0.0-2.0) 01/30/17 06:30 ESR 17 mm/hr (0.0-20.0) 01/29/17 10:16 PT 10.7 Seconds (9.9-11.8) 01/29/17 10:16 INR 0.99 (0.93-1.08) 01/29/17 10:16 APTT 25.6 Seconds (23.7-30.8) 01/29/17 10:16 Sodium 139 mmol/L (132-148) 01/30/17 11:41 Potassium 3.8 mmol/L (3.6-5.0) 01/30/17 11:41 Chloride 104 mmol/L (98-107) 01/30/17 11:41 Carbon Dioxide 26 mmol/L (21-33) 01/30/17 11:41 Anion Gap 13 (10-20) 01/30/17 11:41 BUN 11 mg/dL (7-21) 01/30/17 11:41 Creatinine 0.7 mg/dL (0.5-1.4) 01/30/17 11:41 Est GFR ( Amer) > 60 01/30/17 11:41 Est GFR (Non-Af Amer) > 60 01/30/17 11:41 POC Glucose (mg/dL) 120 mg/dL (65-110) H 01/30/17 16:37 Random Glucose 111 mg/dL (70-110) H 01/30/17 11:41 Hemoglobin A1c 5.9 % (4.2-6.5) 01/29/17 13:55 Calcium 9.2 mg/dL (8.4-10.5) 01/30/17 11:41 Magnesium 2.2 mg/dL (1.7-2.2) 01/29/17 11:28 Total Bilirubin 0.6 mg/dL (0.2-1.3) 01/30/17 11:41 AST 44 U/L (15-39) H 01/30/17 11:41 ALT 26 U/L (7-56) 01/30/17 11:41 Alkaline Phosphatase 87 U/L (38-133) 01/30/17 11:41 Lactate Dehydrogenase 486 U/L (333-699) 01/29/17 11:28 Total Creatine Kinase 53 U/L (35-230) 01/29/17 11:28 Troponin I < 0.01 ng/mL 01/30/17 06:10 Total Protein 6.7 g/dL (5.8-8.3) 01/30/17 11:41 Albumin 3.7 g/dL (3.0-4.8) 01/30/17 11:41 Globulin 2.9 gm/dL 01/30/17 11:41 Albumin/Globulin Ratio 1.3 (1.1-1.8) 01/30/17 11:41 Triglycerides 94 mg/dL (35-160) 01/29/17 13:55 Cholesterol 176 mg/dL (130-200) 01/29/17 13:55 LDL Cholesterol Direct 103 mg/dL (0-129) 01/29/17 13:55 HDL Cholesterol 56 mg/dL (29-60) 01/29/17 13:55 Free T4 1.13 ng/dL (0.78-2.19) 01/30/17 06:10 Thyroxine (T4) 8.1 ug/dL (5.5-11.0) 01/30/17 06:10 Total T3 0.99 ng/mL (0.97-1.69) 01/29/17 11:28 TSH 3rd Generation 2.24 mIU/mL (0.46-4.68) 01/29/17 11:28 Urine Color Yellow (YELLOW) 01/29/17 11:30 Urine Appearance Clear (CLEAR) 01/29/17 11:30 Urine pH 7.5 (4.7-8.0) 01/29/17 11:30 Ur Specific [place] 1.015 (1.005-1.035) 01/29/17 11:30 Urine Protein Negative mg/dL (<30 mg/dL) 01/29/17 11:30 Urine Glucose (UA) Negative mg/dL (NEGATIVE) 01/29/17 11:30 Urine Ketones Negative mg/dL (NEGATIVE) 01/29/17 11:30 Urine Blood Negative (NEGATIVE) 01/29/17 11:30 Urine Nitrate Negative (NEGATIVE) 01/29/17 11:30 Urine Bilirubin Negative (NEGATIVE) 01/29/17 11:30 Urine Urobilinogen 0.2 E.U./dL (<1 E.U./dL) 01/29/17 11:30 Ur Leukocyte Esterase Negative Umm/uL (NEGATIVE) 01/29/17 11:30 Alcohol, Quantitative < 10 mg/dL (0-10) 01/29/17 11:28 RPR Nonreactive (NONREACTIVE) 01/29/17 13:55 - Hospital Course Hospital Course: 71F admitted for headache/vision changes,chest pain. Work up was negative for intracranial pathology, cardiac abnormalities, thyroid abnormalities, lab work mostly WNL- no gross abnormalities. Carotid U/S w/B/L 20-39% proximal ICA stenosis- non significant. Brain MRI, MRA and CT all negative for intracranial pathology. Pt seen/evaluated by neurology w/recs for Tylenol for DIAZ, possible NSAID, ophthalmology eval as outpatient, continue current mgmt. Pt seen/evaluated by cardiology- evaluation negative for cardiac cause of chest pain, likely GI source, ok to d/c from telemetry. Pt stable, ready for discharge home with outpatient follow up with primary and ophthalmology, echo pending, pt to follow up in Dr. Mac's office for results Plan for patient to see ophthalmology as an outpatient for evaluation. Diagnoses: Headache, vision changes, HTN, diabetes - Date & Time of H&P Date of H&P: 01/29/17 Time of H&P: 11:59 Discharge Exam - Head Exam Head Exam: ATRAUMATIC, NORMAL INSPECTION, NORMOCEPHALIC - Eye Exam Eye Exam: EOMI, Normal appearance, PERRL Pupil Exam: NORMAL ACCOMODATION, PERRL - ENT Exam ENT Exam: Mucous Membranes Moist, Normal Exam - Neck Exam Neck exam: Full Rom, Normal Inspection - Respiratory Exam Respiratory Exam: Clear to PA & Lateral, NORMAL BREATHING PATTERN, UNREMARKABLE - Cardiovascular Exam Cardiovascular Exam: REGULAR RHYTHM, +S1, +S2 - GI/Abdominal Exam GI & Abdominal Exam: Normal Bowel Sounds, Soft, Unremarkable. absent: Distended (obese), Tenderness - Extremities Exam Extremities exam: normal inspection - Back Exam Back exam: NORMAL INSPECTION - Neurological Exam Neurological exam: Alert, CN II-XII Intact, Oriented x3 - Psychiatric Exam Psychiatric exam: Normal Affect, Normal Mood - Skin Skin Exam: Dry, Intact, Normal Color, Warm Discharge Plan - Discharge Medications Prescriptions: Aspirin [Ecotrin] 81 mg PO DAILY #30 Aspirin [Ecotrin] 81 mg PO DAILY #30 tabec Atorvastatin [Lipitor] 40 mg PO DAILY #30 tab Atorvastatin [Lipitor] 40 mg PO HS #30 tab Famotidine [Pepcid] 20 mg PO DAILY #30 tab - Follow Up Plan Condition: GOOD Disposition: HOME/ ROUTINE Instructions: Tension Headache (DC), Acute Headache (DC) Additional Instructions: Please call an board turner to set up an outpatient appointment for eye evaluation. Please follow up with Dr Mac within 1-2 weeks after hospitalization for the results of your echocardiogram. You are being prescribed a medication to help lower your cholesterol in your blood, please take at night. You may take the aspirin and pepcid at any time daily. If you have a recurrence of symptoms, please return to the hospital. Referrals: Cuba Gómez MD [Primary Care Provider] - Miles Mac MD [Staff Provider] -
[2017-01-30 17:56] VITALS: BP 148/76; PULSE 73; RESP 18; TEMP 98.2
--- NOTE | 2017-01-31 | CARD ---
APPROVED REPORT EKG Measurement Heart [id number] 126P63 [id number] <Conclusion> Normal sinus rhythm Normal ECG
== END 2017-01-30 21:07 | disposition home or self-care (01) | DRG 103 ==
LOC: ED 09:24 → ERH 13:10 → 2RNO 18:42
PROVIDERS: ADMIT Internal Medicine; ATTEND Internal Medicine
DX: R51 Headache (principal); H53.8 Other visual disturbances; R07.89 Other chest pain; Z68.41 Body mass index [BMI] 40.0-44.9, adult; J44.9 Chronic obstructive pulmonary disease, unspecified; I10 Essential (primary) hypertension; I65.23 Occlusion and stenosis of bilateral carotid arteries; E11.9 Type 2 diabetes mellitus without complications; E66.9 Obesity, unspecified; F41.9 Anxiety disorder, unspecified; E78.00 Pure hypercholesterolemia, unspecified; Z79.84 Long term (current) use of oral hypoglycemic drugs

== ENCOUNTER 2017-02-12 06:50 | Day surgery (SDC) | payer MEDICARE, OTHER ==
[2017-02-09 11:33] VITALS: BMI 40.8
[2017-02-12 07:44] LABS: BASO # 0.02 K/mm3 (0.0-2.0); BASO % 0.3 % (0.0-3.0); GRAN # 4.61 (1.4-6.5); GRAN % 58.7 % (50.0-68.0); HEMATOCRIT 40.1 % (36.0-48.0); LYMPH # 2.6 (1.2-3.4); LYMPH % 33.4 % (22.0-35.0); MEAN CELL VOLUME 88.3 fl (80.0-105.0); MEAN CORPUSCULAR HEMOGLOBIN 29.3 pg (25.0-35.0); MEAN CORPUSCULAR HGB CONC 33.2 g/dl (31.0-37.0); MEAN PLATELET VOLUME 10.8 fl (7.0-11.0); MONO # 0.6 (0.1-0.6); MONO % 7.6 % (1.0-6.0); RED CELL DISTRIBUTION WIDTH 14.3 % (11.5-14.5); WHITE BLOOD COUNT 7.9 10^3/ul (4.5-11.0)
[2017-02-12 07:54] LABS: INR 1.01 (0.93-1.08); PARTIAL THROMBOPLASTIN TIME 27.3 Seconds (23.7-30.8)
[2017-02-12 07:55] LABS: BLOOD UREA NITROGEN 9 mg/dL (7-21); CALCIUM 9.4 mg/dL (8.4-10.5); CARBON DIOXIDE 25 mmol/L (21-33); CHLORIDE 106 mmol/L (98-107); CHOLESTEROL 106 mg/dL (130-200); GFR AFRICAN-AMERICAN > 60; GLUCOSE,RANDOM 99 mg/dL (70-110); POTASSIUM 3.7 mmol/L (3.6-5.0); SODIUM 143 mmol/L (132-148)
[2017-02-12] MEDS ORDERED: Lidocaine 2% Inj (20ml) ONE (08:50)
[2017-02-12] MEDS ORDERED: Midazolam 2 MG/2 ML VIAL ONE ×2 (09:03→09:11)
[2017-02-12] MEDS ORDERED: Sodium Chloride 0.9% 1,000 ML IV SCH (09:45)
[2017-02-12 10:02] VITALS: TEMP 98.1
[2017-02-12 11:31] VITALS: RESP 19; O2SAT 99
[2017-02-12 14:35] VITALS: BP 141/86; PULSE 74
--- NOTE | 2017-02-12 19:56 | CARDCATH ---
PROCEDURE DATE: 02/12/2017 PROCEDURE: 1. Left heart catheterization with coronary angiography and left ventriculogram. 2. The right femoral artery is cannulated with a 6-Swedish sheath. There were no complications. PERFORMING PHYSICIAN: Fady Ibarra MD HISTORY: The patient is a 71-year-old woman with multiple cardiac risk factors including diabetes mellitus, hypertension, and hypercholesterolemia, as well as obesity, who presents with chest pain and an abnormal stress test. Because of this, cardiac catheterization was recommended. FINDINGS: The findings on catheterization revealed a left ventricle that contracted normally. Estimated ejection fraction of 60%. Her coronary anatomy revealed a right dominant circulation. The RCA revealed an ectatic region in the proximal portion extending from the proximal to the midportion. The left main artery was unremarkable. The LAD and diagonal vessels revealed diffuse atherosclerosis without critical lesions. The circumflex artery and obtuse marginal branches were free of significant disease. Angio-Seal was used to close the femoral artery site. The patient tolerated the procedure well. SUMMARY: In summary, the procedure revealed single-vessel CAD with an ectatic proximal and mid RCA. LV function is normal. Given these findings, the patient needs to lose weight and undergo strict cardiac risk reduction program. Fady Ibarra MD
== END 2017-02-12 15:40 | disposition home or self-care (01) ==
LOC: CATH 06:50
PROVIDERS: ATTEND Internal Medicine Cardiovascular Disease
DX: I25.10 Atherosclerotic heart disease of native coronary artery without angina pectoris (principal); I10 Essential (primary) hypertension; E11.9 Type 2 diabetes mellitus without complications; E66.9 Obesity, unspecified; Z68.41 Body mass index [BMI] 40.0-44.9, adult; Z79.84 Long term (current) use of oral hypoglycemic drugs
CPT/HCPCS: 36415; 80048; 80061; 85025; 85610; 85730; 86850; 86900; 93458; 99152; C1760; C1769; C2629; J1644; J2250; J3010; J7040 ×2; Q9967

== ENCOUNTER 2018-04-11 10:03 | Inpatient (IN) | payer MEDICARE, OTHER ==
[2018-04-11] MEDS ORDERED: Morphine 4 mg/ml ISec IVP STA (10:24)
--- NOTE | 2018-04-11 10:28 | ED PDOC ---
Arrival/HPI - General Chief Complaint: Shortness Of Breath Time Seen by Provider: 04/11/18 10:15 Historian: Family (daughter) - History of Present Illness Narrative History of Present Illness (Text): 72 y/o w/ h/o HTN, diabetes asthma, appendectomy, cholecystectomy presenting to the Emergency department complaining of chest pain about 1 hour prior to arrival, shortness of breath since yesterday, black watery diarrhea since last night, and generalized weakness. Per the patient's daughter, they ate at an open buffet last night and patient started to have watery diarrhea about 4 hours after the meal which continued into the morning. The patient admits her last bowel movement was shortly after arrival in the ED as she "cannot hold it in." Her daughter notes patient has viscous, non-bloody, watery fluid coming out of mouth during her multiple episodes of emesis. Patient denies any history of ulcers, chest pain, shortness of breath, back pain, syncopal episodes, paresthesias or fevers at this time. PMD: Dr. 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 ) Symptom Onset: Sudden, Gradual Symptom Course: Unchanged Severity Level: Moderate Activities at Onset: Eating Context: Home Past Medical History - Provider Review Nursing Documentation Reviewed: Yes - Travel History Have you recently traveled outside [place] w/in the past 3 mons?: No - Infectious Disease Hx of Infectious Diseases: None - Tetanus Immunization Tetanus Immunization: Unknown - Cardiac Hx Hypertension: Yes Hx Pacemaker: No - Pulmonary Hx Asthma: Yes (on nebulizer tx's at home) Hx Chronic Obstructive Pulmonary Disease (COPD): Yes Hx Emphysema: No - Neurological Hx Paralysis: No - Renal Hx Renal Disorder: No - Endocrine/Metabolic Hx Diabetes Insipidus: Yes - Hematological/Oncological Hx Blood Transfusions: No - Musculoskeletal/Rheumatological Hx Musculoskeletal Disorders: No - Gastrointestinal Hx Gastroesophageal Reflux: No - Psychiatric Hx Emotional Abuse: No Hx Physical Abuse: No Hx Substance Use: No - Surgical History Hx Appendectomy: Yes Hx Cholecystectomy: Yes - Anesthesia Hx Anesthesia: Yes Hx Anesthesia Reactions: No Hx Malignant Hyperthermia: No - Suicidal Assessment Feels Threatened In Home Enviroment: No Family/Social History - Physician Review Nursing Documentation Reviewed: Yes Family/Social History: No Known Family HX Smoking Status: Never Smoked Hx Alcohol Use: No Hx Substance Use: No Hx Substance Use Treatment: No Allergies/Home Meds Allergies/Adverse Reactions: Allergies cortisone Allergy (Severe, Verified 04/11/18 15:04) ITCHING/SWELLING/RASH Home Medications: Home Meds Medication Instructions Recorded Confirmed RX: Metoprolol Succinate 50 mg PO DAILY 01/29/17 04/11/18 metFORMIN [glucOPHAGE] 500 mg PO DAILY 02/09/17 04/11/18 Linaclotide [Linzess] 145 mcg PO DAILY 02/12/17 04/11/18 Albuterol Sulfate [Proair Hfa] 0.09 mg IH BID 04/11/18 04/11/18 Diclofenac [Diclofenac Sodium] 50 mg PO BID 04/11/18 04/11/18 Docusate Sodium [Doc-Q-Lace] 100 mg PO BID 04/11/18 04/11/18 Dulaglutide [Trulicity] 1.5 mg SC QWK 04/11/18 04/11/18 Latanoprost [Xalatan] 1 drop OU HS 04/11/18 04/11/18 Mirabegron [Myrbetriq] 50 mg PO DAILY 04/11/18 04/11/18 metFORMIN [glucOPHAGE] 500 mg PO DAILY 04/11/18 04/11/18 Review of Systems - Physician Review All systems were reviewed & negative as marked: Yes - Review of Systems Constitutional: Other (Daughter notes generalized weakness). absent: Normal Respiratory: SOB (patient's shortness of breath started yesterday). absent: Normal Cardiovascular: Chest Pain (daughter notes patient's chest pain started about 1 hour prior to arrival). absent: Normal Gastrointestinal: Diarrhea (black watery diarrhea since last night). absent: Normal Physical Exam - Physical Exam Narrative Physical Exam (Text): Rectal exam completed. Vital Signs Reviewed: Yes Vital Signs Temp Pulse Resp BP Pulse Ox 04/11/18 10:13 97.9 F 92 H 18 115/63 100 Temperature: Afebrile Blood Pressure: Normal Pulse: Tachycardic (at 92) Respiratory Rate: Normal Appearance: Positive for: Well-Appearing, Non-Toxic, Uncomfortable Pain Distress: Mild Mental Status: Positive for: Alert and Oriented X 3 - Systems Exam Head: Present: Atraumatic, Normocephalic Pupils: Present: PERRL Extroacular Muscles: Present: EOMI Conjunctiva: Present: Normal Mouth: Present: Moist Mucous Membranes Neck: Present: Normal Range of Motion Respiratory/Chest: Present: Clear to Auscultation, Good Air Exchange. No: Respiratory Distress, Accessory Muscle Use Cardiovascular: Present: Regular Rate and Rhythm, Normal S1, S2, Tachycardic. No: Murmurs Abdomen: Present: Tenderness (Tenderness to palpitation to epigastrium area. Generalized tenderness. ). No: Distention, Peritoneal Signs Rectal: Present: Normal Rectal Tone, Other (No pain with insertion of finger. Light yellow stool from rectal vault. No internal or external hemorrhoids palpated. Hemocult negative. ). No: Rectal Tenderness, Gross Blood, Hemorrhoids Back: Present: Normal Inspection Upper Extremity: No: Normal Inspection, Cyanosis, Edema Lower Extremity: No: Normal Inspection, Edema Neurological: Present: GCS=15, CN II-XII Intact, Speech Normal Skin: Present: Warm, Dry, Normal Color. No: Rashes Psychiatric: Present: Alert, Oriented x 3, Normal Insight, Normal Concentration Medical Decision Making ED Course and Treatment: 04/11/18 10:15 Impression: 72 year old female presents complaining of chest pain about 1 hour prior to arrival, shortness of breath since yesterday, black watery diarrhea since last night, and generalized weakness. 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 Progress Notes: 04/11/18 10:30 Difficulty obtaining IV access. Will attempt US guided IV insertion. 04/11/18 13:08 Labs reviewed with mild leukocytosis with left shift noted. Will treat with Patient comfortable at this time. Pending CT a/p results. 04/11/18 13:[address] Stokes(internal medicine) who will evaluate patient. C Diff negative. Patient returned from CT scan with family in agreement with decision for admission. VBG shows lactate at 2.7. Patient has an isolated HR of 92 and does not meet criteria for SIRS at this time. - Lab Interpretations I have reviewed the lab results: Yes - RAD Interpretation Narrative RAD Interpretations (Text): CT of abdomen/pelvis reviewed by radiologist, shows: Dictator : Mata Martin MD Report Date : 04/11/2018 13:14:02 FINDINGS: LOWER THORAX: The lower esophagus is dilated and filled with fluid. This could be due to reflux LIVER: Unremarkable. No gross lesion or ductal dilatation. GALLBLADDER AND BILE DUCTS: Gallbladder removed PANCREAS: Unremarkable. No gross lesion or ductal dilatation. SPLEEN: Unremarkable. ADRENALS: Unremarkable. No mass. KIDNEYS AND URETERS: Unremarkable. No hydronephrosis. No solid mass. VASCULATURE: Unremarkable. No aortic aneurysm. BOWEL: Unremarkable. No obstruction. No gross mural thickening. APPENDIX: Normal appendix. PERITONEUM: Unremarkable. No free fluid. No free air. LYMPH NODES: Unremarkable. No enlarged lymph nodes. BLADDER: Unremarkable. REPRODUCTIVE: Unremarkable. BONES: Mild compression fracture of L1, probably chronic OTHER FINDINGS: None. IMPRESSION: No acute intra-abdominal findings. Fluid-filled distal esophagus possible reflux X-Ray of chest reviewed by radiologist, shows: Dictator : Mata Martin MD Report Date : 04/11/2018 13:36:19 FINDINGS: LUNGS: Clear. PLEURA: No pneumothorax or pleural fluid seen. CARDIOVASCULAR: Mild cardiomegaly OSSEOUS STRUCTURES: No significant abnormalities. VISUALIZED UPPER ABDOMEN: Normal. OTHER FINDINGS: None. IMPRESSION: No active disease. Residential Designer: Radiologist - EKG Interpretation EKG Interpretation (Text): EKG: Ordered, reviewed, and independently interpreted the EKG. Rate : 139 BPM Interpretation : Atrial fibrillation with RVR. ST depressions in V5 and V6. No T-wave inversions seen. Interpreted by ED Physician: Yes Type: 12 lead EKG - Scribe Statement The provider has reviewed the documentation as recorded by the Rylanibe Rocío Narvaez All medical record entries made by the Rylanibmary were at my direction and personally dictated by me. I have reviewed the chart and agree that the record accurately reflects my personal performance of the history, physical exam, medical decision making, and the department course for this patient. I have also personally directed, reviewed, and agree with the discharge instructions and disposition. Disposition/Present on Arrival - Present on Arrival Any Indicators Present on Arrival: No History of DVT/PE: No History of Uncontrolled Diabetes: No Urinary Catheter: No History of Decub. Ulcer: No History Surgical Site Infection Following: None - Disposition Have Diagnosis and Disposition been Completed?: Yes Diagnosis: Gastroenteritis Disposition: HOSPITALIZED Disposition Time: 13:27 Patient Plan: Observation Patient Problems: Current Active Problems Problem Status Onset Gastroenteritis Acute Condition: FAIR
[2018-04-11] MEDS ORDERED: Sodium Chloride 0.9% 1,000 ML IV STA (10:36)
[2018-04-11 11:14] LABS: BASO # 0.01 K/mm3 (0.0-2.0); BASO % 0.1 % (0.0-3.0); GRAN # 10.22 (1.4-6.5); GRAN % 83.5 % (50.0-68.0); HEMOGLOBIN 13.9 g/dL (12.0-16.0); MEAN CELL VOLUME 88.9 fl (80.0-105.0); MEAN CORPUSCULAR HEMOGLOBIN 29.1 pg (25.0-35.0); MEAN CORPUSCULAR HGB CONC 32.7 g/dl (31.0-37.0); MEAN PLATELET VOLUME 10.8 fl (7.0-11.0); MONO % 8.4 % (1.0-6.0); RBC 4.78 10^6/uL (3.5-6.1); RED CELL DISTRIBUTION WIDTH 14.3 % (11.5-14.5); WHITE BLOOD COUNT 12.2 10^3/ul (4.5-11.0)
[2018-04-11] MEDS ORDERED: Ciprofloxacin 400mg/200ml D5W 400 MG/200 ML BAG IVPB STA (11:26)
[2018-04-11] MEDS ORDERED: metroNIDAZOLE IV 500 mg/100 ml 500 MG/100 ML BAG IVPB STA (11:26)
[2018-04-11 12:05] LABS: VENOUS BLOOD GAS BASE EXCESS 1.5 mmol/L (0.0-2.0); VENOUS BLOOD GAS PO2 29 mm/Hg (30-55); VENOUS BLOOD PH 7.36 (7.32-7.43)
[2018-04-11 12:17] LABS: INR 1.03; PARTIAL THROMBOPLASTIN TIME 27.4 Seconds (25.1-36.5); PROTHROMBIN TIME 11.9 SECONDS (9.4-12.5)
[2018-04-11 12:33] LABS: ALB/GLOB RATIO 1.1 (1.1-1.8); ALBUMIN 3.5 g/dL (3.0-4.8); ALT/SGPT 27 U/L (7-56); AMYLASE 43 U/L (35-125); AST/SGOT 21 U/L (14-36); BLOOD UREA NITROGEN 11 mg/dL (7-21); GFR NON-AFRICAN AMERICAN > 60; LIPASE 110 U/L (23-300)
[2018-04-11 12:44] LABS: TROPONIN I < 0.01 ng/mL
--- NOTE | 2018-04-11 13:18 | CT ---
Date of service: 04/11/2018 PROCEDURE: CT Abdomen and Pelvis with contrast HISTORY: abdominal pain COMPARISON: 12/17/2013 TECHNIQUE: Contrast dose: 150 cc of Omni 350 Radiation dose: Total exam DLP = 1044.83 mGy-cm. This CT exam was performed using one or more of the following dose reduction techniques: Automated exposure control, adjustment of the mA and/or kV according to patient size, and/or use of iterative reconstruction technique. FINDINGS: LOWER THORAX: The lower esophagus is dilated and filled with fluid. This could be due to reflux LIVER: Unremarkable. No gross lesion or ductal dilatation. GALLBLADDER AND BILE DUCTS: Gallbladder removed PANCREAS: Unremarkable. No gross lesion or ductal dilatation. SPLEEN: Unremarkable. ADRENALS: Unremarkable. No mass. KIDNEYS AND URETERS: Unremarkable. No hydronephrosis. No solid mass. VASCULATURE: Unremarkable. No aortic aneurysm. BOWEL: Unremarkable. No obstruction. No gross mural thickening. APPENDIX: Normal appendix. PERITONEUM: Unremarkable. No free fluid. No free air. LYMPH NODES: Unremarkable. No enlarged lymph nodes. BLADDER: Unremarkable. REPRODUCTIVE: Unremarkable. BONES: Mild compression fracture of L1, probably chronic OTHER FINDINGS: None. IMPRESSION: No acute intra-abdominal findings. Fluid-filled distal esophagus possible reflux
--- NOTE | 2018-04-11 13:39 | RAD ---
Date of service: 04/11/2018 PROCEDURE: CHEST RADIOGRAPH, 1 VIEW HISTORY: sob COMPARISON: 10/11/2013 FINDINGS: LUNGS: Clear. PLEURA: No pneumothorax or pleural fluid seen. CARDIOVASCULAR: Mild cardiomegaly OSSEOUS STRUCTURES: No significant abnormalities. VISUALIZED UPPER ABDOMEN: Normal. OTHER FINDINGS: None. IMPRESSION: No active disease.
[2018-04-11 16:44] LABS: VENOUS BLOOD GAS BASE EXCESS -0.4 mmol/L (0.0-2.0); VENOUS BLOOD GAS PO2 34 mm/Hg (30-55); VENOUS BLOOD PH 7.31 (7.32-7.43)
--- NOTE | 2018-04-11 17:04 | CARD ---
APPROVED REPORT Date of service: 04/11/2018 EKG Measurement Heart [id number] <Conclusion> Atrial fibrillation with rapid ventricular response ST & T wave abnormality, consider inferior ischemia or digitalis effect Abnormal ECG
[2018-04-11 17:34] VITALS: BMI 46.8
[2018-04-11] MEDS ORDERED: Influenza Vaccine 60 mcg/0.5 mL SYR (4YR UP) IM ONE (17:34)
[2018-04-11] MEDS ORDERED: Pneumococcal 23-Valent Vaccine IM ONE (17:34)
[2018-04-11] MEDS ORDERED: HYDROmorphone 0.5 mg/0.5 ml ISec IVP PRN (18:32)
[2018-04-11 19:46] LABS: PH,URINE 6.5 (4.7-8.0); URINE BILIRUBIN NEGATIVE (NEGATIVE); URINE BLOOD NEGATIVE (NEGATIVE); URINE GLUCOSE (UA) NEGATIVE (NEGATIVE); URINE LEUKOCYTE ESTERASE SMALL Leu/uL (NEGATIVE); URINE PROTEIN NEGATIVE mg/dL (<30 mg/dL); URINE UROBILINOGEN 0.2 E.U./dL (<1 E.U./dL)
[2018-04-11 19:47] LABS: URINE APPEARANCE CLEAR (CLEAR); URINE COLOR YELLOW (YELLOW)
[2018-04-11 23:10] LABS: VENOUS BLOOD GAS BASE EXCESS 4.5 mmol/L (0.0-2.0); VENOUS BLOOD GAS PO2 33 mm/Hg (30-55); VENOUS BLOOD PH 7.42 (7.32-7.43)
[2018-04-12] MEDS: Metoprolol Succinate 50 mg XL Tab PO SCH (09:57)
--- NOTE | 2018-04-12 14:24 | CP.PCM.CON ---
History of Present Illness - History of Present Illness History of Present Illness: PGY-4 GI Fellow Consult Note 72 y/o Yi speaking F PMHx HTN, DM, CAD ([facility] single vessel CAD with EF 60%), asthma, GERD p/w sob/CP, abdominal pain, weakness, and dark stools. Daughter at bedside translating, majority of history obtained from daughter as patient is a poor historian and does not recall her meds/history. Symptoms began 1d prior, 1 day after ate at a buffet. Also reports 3-4 episodes of nb/nb vomiting. Daughter also recalls three other family members with small episodes of diarrhea that day. Patient initially developed sob and had 3-4 episodes of dark colored diarrhea. Denied any brbpr. Initially had cp and sob but since then those symptoms have resolved. Family reports patient has long standing c onstipation with occasional diarrhea, patient states that she feels the urge to go however sometimes does not make it to the bathroom. Family also reports that patient has had decreased appetite and signficiant weight loss over the last few montsh. Otherwise, patient denies any odonophagia, dysphagia, fevers, chills, LE swelling, or urinary complaints. Reports no new medications. Has never had a C N/EGD before. States she has a history of a "fast heartbeat" which she takes medication for, denies taking any blood thinners. 12 point ROS negative other than stated above MHx: HTN, DM, CAD ([facility] single vessel CAD with EF 60%), asthma, GERD SurgHx: Appendectomy, cholecystectomy SocHx: Denies any alcohol/tobacco/illicit drug use FamHx: Denied h/o GI problems Home meds reviewed. Allergies: ?Cortisone Past Patient History - Infectious Disease Hx of Infectious Diseases: None - Tetanus Immunizations Tetanus Immunization: Unknown - Past Social History Smoking Status: Never Smoked - CARDIAC Hx Cardiac Disorders: Yes Hx Hypertension: Yes Hx Pacemaker: No - PULMONARY Hx Respiratory Disorders: Yes Hx Asthma: Yes (on nebulizer tx's at home) Hx Chronic Obstructive Pulmonary Disease (COPD): Yes Hx Emphysema: No - NEUROLOGICAL Hx Neurological Disorder: No HX Cerebrovascular Accident: No Hx Dementia: No Hx Seizures: No - HEENT Hx HEENT Problems: Yes Hx Cataracts: Yes (BILATERAL CATARACTS) Hx Glaucoma: Yes - RENAL Hx Chronic Kidney Disease: No - ENDOCRINE/METABOLIC Hx Endocrine Disorders: Yes Hx Diabetes Insipidus: Yes - HEMATOLOGICAL/ONCOLOGICAL Hx Blood Disorders: No Hx Cancer: No - INTEGUMENTARY Hx Dermatological Problems: No - MUSCULOSKELETAL/RHEUMATOLOGICAL Hx Musculoskeletal Disorders: No Hx Falls: No - GASTROINTESTINAL Hx Gastrointestinal Disorders: Yes (APPENDECTOMY,CHOLECYSTECTOMY) Hx Gall Bladder Disease: Yes Hx Gastroesophageal Reflux: Yes - GENITOURINARY/GYNECOLOGICAL Hx Genitourinary Disorders: No - PSYCHIATRIC Hx Psychophysiologic Disorder: No Hx Emotional Abuse: No Hx Physical Abuse: No Hx Substance Use: No - SURGICAL HISTORY Hx Surgeries: Yes Hx Appendectomy: Yes Hx Cholecystectomy: Yes - ANESTHESIA Hx Anesthesia: Yes Hx Anesthesia Reactions: No Hx Malignant Hyperthermia: No Meds Allergies/Adverse Reactions: Allergies Allergy/AdvReac Type Severity Reaction Status Date / Time cortisone Allergy Severe ITCHING/SWE Verified 04/11/18 15:04 LLING/RASH - Medications Medications: Current Medications Hydromorphone HCl (Dilaudid) 0.5 mg IVP Q6H PRN PRN Reason: Pain, severe (8-10) Metoprolol Succinate (Toprol Xl) 50 mg PO DAILY DELVIS Last Admin: 04/12/18 09:57 Dose: 50 mg Ondansetron HCl (Zofran Inj) 4 mg IVP Q6H PRN PRN Reason: Nausea/Vomiting Physical Exam - Constitutional Appears: Well, No Acute Distress - Head Exam Head Exam: ATRAUMATIC, NORMAL INSPECTION - Eye Exam Eye Exam: EOMI. absent: Conjunctival injection, Scleral icterus - ENT Exam ENT Exam: Mucous Membranes Moist, Normal External Ear Exam. absent: Mucous Membranes Dry - Respiratory Exam Respiratory Exam: NORMAL BREATHING PATTERN. absent: Accessory Muscle Use, Respiratory Distress - GI/Abdominal Exam GI & Abdominal Exam: Normal Bowel Sounds, Soft, Tenderness (in RLW w/o guarding). absent: Bruit, Diminished Bowel Sounds, Distended, Firm, Guarding, Hernia, Hyperactive Bowel Sounds, Hypoactive Bowel Sounds, Mass, Organomegaly, Pulsatile Mass, Rebound, Rigid - Rectal Exam Rectal Exam: Hemorrhoids Additional comments: done by Dr. Garrido, non bleeding external hemorrhoids, Brown stool in r ectal vault, no masses/fissures palpated, reduced sphincter tone - Extremities Exam Extremities exam: Positive for: normal inspection. Negative for: pedal edema - Neurological Exam Neurological exam: Alert, CN II-XII Intact - Psychiatric Exam Psychiatric exam: Normal Affect, Normal Mood - Skin Skin Exam: Normal Color, Warm Results - Vital Signs Recent Vital Signs: Last Vital Signs Temp 98.6 F 04/12/18 06:00 Pulse 80 04/12/18 09:57 Resp 19 04/12/18 06:00 BP 120/61 04/12/18 09:57 Pulse Ox 97 04/12/18 06:00 - Labs Result Diagrams: 04/11/18 11:05 04/11/18 12:00 Labs: Laboratory Results - last 24 hr 04/11/18 04/11/18 04/11/18 12:00 16:33 19:30 pO2 34 VBG pH 7.31 L VBG pCO2 53.0 VBG HCO3 26.7 VBG Total CO2 28.3 H VBG O2 Sat (Calc) 66.3 H VBG Base Excess -0.4 L VBG Potassium 3.9 Glucose 156 H Lactate 2.7 H FiO2 21.0 Sodium 140 139.0 Potassium 3.7 Chloride 107 107.0 Carbon Dioxide 26 Anion Gap 11 BUN 11 Creatinine 0.6 L Est GFR ( Amer) > 60 Est GFR (Non-Af Amer) > 60 POC Glucose (mg/dL) Random Glucose 104 Calcium 9.0 Total Bilirubin 0.4 AST 21 ALT 27 Alkaline Phosphatase 83 Troponin I < 0.01 Total Protein 6.6 Albumin 3.5 Globulin 3.1 Albumin/Globulin Ratio 1.1 Amylase 43 Lipase 110 Venous Blood Potassium 3.9 Urine Color Yellow Urine Appearance Clear Urine pH 6.5 Ur Specific [place] <= 1.005 Urine Protein Negative Urine Glucose (UA) Negative Urine Ketones Negative Urine Blood Negative Urine Nitrate Negative Urine Bilirubin Negative Urine Urobilinogen 0.2 Ur Leukocyte Esterase Small H Urine RBC TEST NOT PERFORMED Urine WBC 5 - 10 Ur Epithelial Cells - 04/11/18 04/11/18 04/11/18 21:05 22:46 23:05 pO2 33 VBG pH 7.42 VBG pCO2 46.0 VBG HCO3 29.8 H VBG Total CO2 31.2 H VBG O2 Sat (Calc) 68.7 H VBG Base Excess 4.5 H VBG Potassium 4.0 Glucose 88 Lactate 1.2 FiO2 21.0 Sodium 141.0 Potassium Chloride 110.0 H Carbon Dioxide Anion Gap BUN Creatinine Est GFR ( Amer) Est GFR (Non-Af Amer) POC Glucose (mg/dL) 68 85 Random Glucose Calcium Total Bilirubin AST ALT Alkaline Phosphatase Troponin I Total Protein Albumin Globulin Albumin/Globulin Ratio Amylase Lipase Venous Blood Potassium 4.0 Urine Color Urine Appearance Urine pH Ur Specific [place] Urine Protein Urine Glucose (UA) Urine Ketones Urine Blood Urine Nitrate Urine Bilirubin Urine Urobilinogen Ur Leukocyte Esterase Urine RBC Urine WBC Ur Epithelial Cells 04/12/18 07:38 pO2 VBG pH VBG pCO2 VBG HCO3 VBG Total CO2 VBG O2 Sat (Calc) VBG Base Excess VBG Potassium Glucose Lactate FiO2 Sodium Potassium Chloride Carbon Dioxide Anion Gap BUN Creatinine Est GFR ( Amer) Est GFR (Non-Af Amer) POC Glucose (mg/dL) 82 Random Glucose Calcium Total Bilirubin AST ALT Alkaline Phosphatase Troponin I Total Protein Albumin Globulin Albumin/Globulin Ratio Amylase Lipase Venous Blood Potassium Urine Color Urine Appearance Urine pH Ur Specific [place] Urine Protein Urine Glucose (UA) Urine Ketones Urine Blood Urine Nitrate Urine Bilirubin Urine Urobilinogen Ur Leukocyte Esterase Urine RBC Urine WBC Ur Epithelial Cells Assessment & Plan - Assessment and Plan (Free Text) Assessment: 72 y/o Yi speaking F PMHx HTN, DM, CAD ([facility] single vessel CAD with EF 60%), asthma, GERD p/w sob/CP, abdominal pain, weakness, and dark stools. #Dark Stool; Diarrhea; abdominal pain Rectal exam negative for melena/brbpr. VSS, HG/Hct stable. No signs of active bleeding, unlikely UGIB. Continue to monitor Hg/Hct and Bowel movements while inpatient. CTAP negative. Diarrhea in setting of longstanding constipation likely overflow diarrhea, however given age, weight loss, and no history of endoscopies patient would warrant EGD/CN as outpatient to r/o malignancy. Given reduced sphincter tone, if CN normal would pursue further workup for fecal incontince as outpatient. Plan: PRELIM NOTE; RECS NOT FINAL UNTIL SIGNED AND STAFFED - continue cardiac w/u for CP/Abd (could be atypical cp given female; elderly, and diabetic) - no plan for endoscopic procedure; f/u as outpatient for EGD/CSPY - monitor HGB/HCT, montor BMs - can consider stool softeners/laxatives for constipation induced overflow incontinence if no BM Pt seen and examined with Dr. Olivarez; see attestation for further recs/changes
--- NOTE | 2018-04-12 14:34 | CP.PCM.CON ---
<Roe Carroll - Last Filed: 04/12/18 18:03> History of Present Illness - History of Present Illness History of Present Illness: PGY-4 GI Fellow Consult Note 72 y/o Polish speaking F with HTN, DM, CAD ([facility] single vessel CAD with EF 60%), asthma, GERD complaing of SOB+CP, Abd pain, weakness, and dark stools. Daughter at bedside translating, majority of history obtained from daughter as patient is a poor historian and does not recall her meds/history. Symptoms began 1d prior, 1 day after ate at a buffet. Also reports 3-4 episodes of nb/nb vomiting. Daughter also recalls three other family members with small episodes of diarrhea that day. Patient initially developed sob and had 3-4 episodes of dark colored diarrhea. Denied any brbpr. Initially had cp and sob but since then those symptoms have resolved. Family reports patient has long standing consti pation with occasional diarrhea, patient states that she feels the urge to go however sometimes does not make it to the bathroom. Family also reports that patient has had decreased appetite and signficiant weight loss over the last few montsh. Otherwise, patient denies any odonophagia, dysphagia, fevers, chills, LE swelling, or urinary complaints. Reports no new medications. Has never had a CSPY/EGD before. States she has a history of a "fast heartbeat" which she takes medication for, denies taking any blood thinners. 12 point ROS negative other than stated above MHx: HTN, DM, CAD ([facility] single vessel CAD with EF 60%), asthma, GERD SurgHx: Appendectomy, cholecystectomy Meds: Reviewed. FamHx: Non contributory SocHx: Denies any alcohol/tobacco/illicit drug use Allergies: ?Cortisone Past Patient History - Infectious Disease Hx of Infectious Diseases: None - Tetanus Immunizations Tetanus Immunization: Unknown - Past Social History Smoking Status: Never Smoked - CARDIAC Hx Cardiac Disorders: Yes Hx Hypertension: Yes Hx Pacemaker: No - PULMONARY Hx Respiratory Disorders: Yes Hx Asthma: Yes (on nebulizer tx's at home) Hx Chronic Obstructive Pulmonary Disease (COPD): Yes Hx Emphysema: No - NEUROLOGICAL Hx Neurological Disorder: No HX Cerebrovascular Accident: No Hx Dementia: No Hx Seizures: No - HEENT Hx HEENT Problems: Yes Hx Cataracts: Yes (BILATERAL CATARACTS) Hx Glaucoma: Yes - RENAL Hx Chronic Kidney Disease: No - ENDOCRINE/METABOLIC Hx Endocrine Disorders: Yes Hx Diabetes Insipidus: Yes - HEMATOLOGICAL/ONCOLOGICAL Hx Blood Disorders: No Hx Cancer: No - INTEGUMENTARY Hx Dermatological Problems: No - MUSCULOSKELETAL/RHEUMATOLOGICAL Hx Musculoskeletal Disorders: No Hx Falls: No - GASTROINTESTINAL Hx Gastrointestinal Disorders: Yes (APPENDECTOMY,CHOLECYSTECTOMY) Hx Gall Bladder Disease: Yes Hx Gastroesophageal Reflux: Yes - GENITOURINARY/GYNECOLOGICAL Hx Genitourinary Disorders: No - PSYCHIATRIC Hx Psychophysiologic Disorder: No Hx Emotional Abuse: No Hx Physical Abuse: No Hx Substance Use: No - SURGICAL HISTORY Hx Surgeries: Yes Hx Appendectomy: Yes Hx Cholecystectomy: Yes - ANESTHESIA Hx Anesthesia: Yes Hx Anesthesia Reactions: No Hx Malignant Hyperthermia: No Meds Allergies/Adverse Reactions: Allergies Allergy/AdvReac Type Severity Reaction Status Date / Time cortisone Allergy Severe ITCHING/SWE Verified 04/11/18 15:04 LLING/RASH - Medications Medications: Current Medications Hydromorphone HCl (Dilaudid) 0.5 mg IVP Q6H PRN PRN Reason: Pain, severe (8-10) Metoprolol Succinate (Toprol Xl) 50 mg PO DAILY [facility] Last Admin: 04/12/18 09:57 Dose: 50 mg Ondansetron HCl (Zofran Inj) 4 mg IVP Q6H PRN PRN Reason: Nausea/Vomiting Physical Exam - Constitutional Appears: Well, No Acute Distress - Head Exam Head Exam: ATRAUMATIC, NORMAL INSPECTION - Eye Exam Eye Exam: EOMI, Normal appearance. absent: Conjunctival injection, Scleral icterus - ENT Exam ENT Exam: Mucous Membranes Moist, Normal External Ear Exam. absent: Mucous Membranes Dry - Respiratory Exam Respiratory Exam: NORMAL BREATHING PATTERN. absent: Accessory Muscle Use, Respiratory Distress - Cardiovascular Exam Cardiovascular Exam: REGULAR RHYTHM. absent: Bradycardia - GI/Abdominal Exam GI & Abdominal Exam: Normal Bowel Sounds, Soft, Tenderness (ttp in RLQ w/o guarding). absent: Bruit, Diminished Bowel Sounds, Distended, Firm, Guarding, Hernia, Organomegaly, Pulsatile Mass, Rebound, Rigid - Rectal Exam Rectal Exam: Hemorrhoids Additional comments: Done by Dr. Garrido:non bleeding external hemorrhoids, Brown stool in rectal vault, no masses/fissures palpated, reduced sphincter tone - Extremities Exam Extremities exam: Positive for: normal inspection. Negative for: pedal edema - Neurological Exam Neurological exam: Alert, CN II-XII Intact - Psychiatric Exam Psychiatric exam: Normal Affect, Normal Mood - Skin Skin Exam: Dry, Normal Color, Warm Results - Vital Signs Recent Vital Signs: Last Vital Signs Temp 98.6 F 04/12/18 06:00 Pulse 80 04/12/18 09:57 Resp 19 04/12/18 06:00 BP 120/61 04/12/18 09:57 Pulse Ox 97 04/12/18 06:00 - Labs Result Diagrams: 04/11/18 11:05 04/11/18 12:00 Labs: Laboratory Results - last 24 hr 04/11/18 04/11/18 04/11/18 12:00 16:33 19:30 pO2 34 VBG pH 7.31 L VBG pCO2 53.0 VBG HCO3 26.7 VBG Total CO2 28.3 H VBG O2 Sat (Calc) 66.3 H VBG Base Excess -0.4 L VBG Potassium 3.9 Glucose 156 H Lactate 2.7 H FiO2 21.0 Sodium 140 139.0 Potassium 3.7 Chloride 107 107.0 Carbon Dioxide 26 Anion Gap 11 BUN 11 Creatinine 0.6 L Est GFR ( Amer) > 60 Est GFR (Non-Af Amer) > 60 POC Glucose (mg/dL) Random Glucose 104 Calcium 9.0 Total Bilirubin 0.4 AST 21 ALT 27 Alkaline Phosphatase 83 Troponin I < 0.01 Total Protein 6.6 Albumin 3.5 Globulin 3.1 Albumin/Globulin Ratio 1.1 Amylase 43 Lipase 110 Venous Blood Potassium 3.9 Urine Color Yellow Urine Appearance Clear Urine pH 6.5 Ur Specific [place] <= 1.005 Urine Protein Negative Urine Glucose (UA) Negative Urine Ketones Negative Urine Blood Negative Urine Nitrate Negative Urine Bilirubin Negative Urine Urobilinogen 0.2 Ur Leukocyte Esterase Small H Urine RBC TEST NOT PERFORMED Urine WBC 5 - 10 Ur Epithelial Cells - 04/11/18 04/11/18 04/11/18 21:05 22:46 23:05 pO2 33 VBG pH 7.42 VBG pCO2 46.0 VBG HCO3 29.8 H VBG Total CO2 31.2 H VBG O2 Sat (Calc) 68.7 H VBG Base Excess 4.5 H VBG Potassium 4.0 Glucose 88 Lactate 1.2 FiO2 21.0 Sodium 141.0 Potassium Chloride 110.0 H Carbon Dioxide Anion Gap BUN Creatinine Est GFR ( Amer) Est GFR (Non-Af Amer) POC Glucose (mg/dL) 68 85 Random Glucose Calcium Total Bilirubin AST ALT Alkaline Phosphatase Troponin I Total Protein Albumin Globulin Albumin/Globulin Ratio Amylase Lipase Venous Blood Potassium 4.0 Urine Color Urine Appearance Urine pH Ur Specific [place] Urine Protein Urine Glucose (UA) Urine Ketones Urine Blood Urine Nitrate Urine Bilirubin Urine Urobilinogen Ur Leukocyte Esterase Urine RBC Urine WBC Ur Epithelial Cells 04/12/18 07:38 pO2 VBG pH VBG pCO2 VBG HCO3 VBG Total CO2 VBG O2 Sat (Calc) VBG Base Excess VBG Potassium Glucose Lactate FiO2 Sodium Potassium Chloride Carbon Dioxide Anion Gap BUN Creatinine Est GFR ( Amer) Est GFR (Non-Af Amer) POC Glucose (mg/dL) 82 Random Glucose Calcium Total Bilirubin AST ALT Alkaline Phosphatase Troponin I Total Protein Albumin Globulin Albumin/Globulin Ratio Amylase Lipase Venous Blood Potassium Urine Color Urine Appearance Urine pH Ur Specific [place] Urine Protein Urine Glucose (UA) Urine Ketones Urine Blood Urine Nitrate Urine Bilirubin Urine Urobilinogen Ur Leukocyte Esterase Urine RBC Urine WBC Ur Epithelial Cells Assessment & Plan - Assessment and Plan (Free Text) Assessment: 72 y/o Polish speaking F PMHx HTN, DM, CAD ([facility] single vessel CAD with EF 60%), asthma, GERD p/w sob/CP, abdominal pain, weakness, and dark stools. #Dark Stool; Diarrhea; abdominal pain: Rectal exam negative for melena/brbpr. VSS, HG/Hct stable. No signs of active bleeding, unlikely UGIB. Continue to monitor Hg/Hct and Bowel movements while inpatient. CTAP negative. Diarrhea in setting of longstanding constipation likely overflow diarrhea, however given age, weight loss, and no history of endoscopies patient would warrant EGD/CSPY as outpatient to r/o malignancy. Given reduced sphincter tone, if CSPY normal would pursue further workup for fecal incontinence as outpatient. Plan: - No plan for endoscopic procedure; f/u as outpatient for EGD/CSPY - Monitor HGB/HCT, montor BMs - Can consider stool softeners/laxatives for constipation induced overflow incontinence if no BM - Full Liq Diet, ADAT tomorrow Pt seen and examined with Dr. Olivarez; see attestation for further recs/changes <Patricia Olivarez V - Last Filed: 04/14/18 22:57> Meds - Medications Medications: Current Medications Acetylcysteine (Acetylcysteine 20%) 4 ml IH BIDRESP [facility] Last Admin: 04/13/18 20:06 Dose: Not Given Albuterol/Ipratropium (Duoneb 3 Mg/0.5 Mg (3 Ml) Ud) 3 ml IH [id number] [facility] Last Admin: 04/13/18 20:02 Dose: 3 ml Diltiazem HCl (Cardizem) 30 mg PO Q8H [facility] Last Admin: 04/13/18 21:34 Dose: 30 mg Docusate Sodium (Colace) 100 mg PO BID [facility] Last Admin: 04/13/18 17:21 Dose: Not Given Famotidine (Pepcid) 40 mg PO HS [facility] Last Admin: 04/13/18 21:30 Dose: 40 mg Hydralazine HCl (Apresoline) 10 mg IVP Q6 PRN PRN Reason: hypertension Hydromorphone HCl (Dilaudid) 0.5 mg IVP Q6H PRN PRN Reason: Pain, severe (8-10) Metronidazole (Flagyl) 500 mg in 100 mls @ 100 mls/hr IVPB Q8 [facility]; Protocol Last Admin: 04/13/18 21:35 Dose: 100 mls/hr Ceftriaxone Sodium (Rocephin 1 Gram Ivpb) 1 gm in 100 mls @ 100 mls/hr IVPB DAILY [facility]; Protocol Last Admin: 04/13/18 10:28 Dose: 100 mls/hr Nystatin (Nystop Topical Powder) 1 gm TOP BID [facility] Last Admin: 04/13/18 17:22 Dose: 1 applic Ondansetron HCl (Zofran Inj) 4 mg IVP Q6H PRN PRN Reason: Nausea/Vomiting Polyethylene Glycol (Miralax) 17 gm PO BID [facility] Last Admin: 04/13/18 17:22 Dose: Not Given Sotalol HCl (Betapace) 80 mg PO Q12 [facility] Last Admin: 04/13/18 21:31 Dose: 80 mg Results - Vital Signs Recent Vital Signs: Last Vital Signs Temp 98.4 F 10/20/18 18:42 Pulse 84 04/13/18 21:34 Resp 18 04/13/18 18:42 BP 170/90 H 04/13/18 21:34 Pulse Ox 95 04/13/18 18:42 - Labs Result Diagrams: 04/13/18 08:00 04/13/18 08:00 Labs: Laboratory Results - last 24 hr 04/12/18 04/13/18 04/13/18 19:39 07:22 08:00 WBC 5.4 D RBC 4.25 Hgb 12.2 Hct 37.7 MCV 88.7 MCH 28.7 MCHC 32.4 RDW 14.5 Plt Count 223 MPV 10.3 D-Dimer, Quantitative Sodium Potassium Chloride Carbon Dioxide Anion Gap BUN Creatinine Est GFR ( Amer) Est GFR (Non-Af Amer) POC Glucose (mg/dL) 78 Random Glucose Calcium Vitamin B12 374 Folate > 20.0 TSH 3rd Generation 04/13/18 04/13/18 04/13/18 08:00 08:00 11:11 WBC RBC Hgb Hct MCV MCH MCHC RDW Plt Count MPV D-Dimer, Quantitative Sodium 141 Potassium 3.9 Chloride 106 Carbon Dioxide 28 Anion Gap 10 BUN 3 L Creatinine 0.6 L Est GFR ( Amer) > 60 Est GFR (Non-Af Amer) > 60 POC Glucose (mg/dL) 117 H Random Glucose 86 Calcium 9.3 Vitamin B12 Folate TSH 3rd Generation 1.93 04/13/18 04/13/18 15:59 19:07 WBC RBC Hgb Hct MCV MCH MCHC RDW Plt Count MPV D-Dimer, Quantitative 259 H Sodium Potassium Chloride Carbon Dioxide Anion Gap BUN Creatinine Est GFR ( Amer) Est GFR (Non-Af Amer) POC Glucose (mg/dL) 90 Random Glucose Calcium Vitamin B12 Folate TSH 3rd Generation Attending/Attestation - Attestation I have personally seen and examined this patient.: Yes I have fully participated in the care of the patient.: Yes I have reviewed all pertinent clinical information: Yes Notes (Text): This is a delayed addendum to GI consult report dictated by the GI Fellow.The patient was seen and examined earlier. Medical records, lab studies, imagings were reviewed. Last 24 hours events reviewed. Agreed with the above treatment plan as outlined in GI Fellow 's notes with the addition of the following This patient was admitted with abdominal pain and dark stool Hb stable Followup hb Clinically more suggestive of acute gastroenteritis Continue the antibiotics Followup stool studies 04/13/18 21:47
[2018-04-12] MEDS: POLYETHYLENE GLYCOL 3350 17 GM/Dose PACKET PO SCH (17:19)
[2018-04-12 19:52] LABS: HDL CHOLESTEROL 52 mg/dL (29-60)
[2018-04-12 20:03] LABS: TOTAL IRON BINDING CAPACITY 326 ug/dL (265-497)
[2018-04-12 20:05] LABS: LDL CHOLESTEROL 70 mg/dL (0-129)
[2018-04-12 20:06] LABS: TROPONIN I 0.02 ng/mL
[2018-04-12 20:10] LABS: % IRON SATURATION 15 % (20-55); IRON 50 ug/dL (45-180)
[2018-04-12] MEDS: Albuterol-Ipratrop 3 mg / 0.5 (3 ml) UD IH SCH (20:15)
[2018-04-13] MEDS: Albuterol-Ipratrop 3 mg / 0.5 (3 ml) UD IH SCH ×4 (02:07→20:02)
[2018-04-13] MEDS: metroNIDAZOLE IV 500 mg/100 ml 500 MG/100 ML BAG IVPB SCH ×4 (05:07→21:35)
[2018-04-13 08:21] LABS: HEMOGLOBIN 12.2 g/dL (12.0-16.0); MEAN CELL VOLUME 88.7 fl (80.0-105.0); MEAN CORPUSCULAR HEMOGLOBIN 28.7 pg (25.0-35.0); MEAN CORPUSCULAR HGB CONC 32.4 g/dl (31.0-37.0); MEAN PLATELET VOLUME 10.3 fl (7.0-11.0); RBC 4.25 10^6/uL (3.5-6.1); RED CELL DISTRIBUTION WIDTH 14.5 % (11.5-14.5); WHITE BLOOD COUNT 5.4 10^3/ul (4.5-11.0)
[2018-04-13 08:59] LABS: BLOOD UREA NITROGEN 3 mg/dL (7-21); CALCIUM 9.3 mg/dL (8.4-10.5); GFR NON-AFRICAN AMERICAN > 60
--- NOTE | 2018-04-13 10:20 | HP ---
The patient is a 72-year-old female. The patient was seen in the Emergency Room on 04/11/2018. CHIEF COMPLAINT: Shortness of breath, abdominal pain. HISTORY OF PRESENT ILLNESS: Ms. Meliza Benitez is a 72-year-old female with past medical history of hypertension, asthma, appendectomy, cholecystectomy, came to the Emergency Department complaining of chest pain about 1 hour prior to arrival, shortness of breath since yesterday, black watery diarrhea since last night and generalized weakness. Daughter noticed they ate at an open buffet last night and the patient started to have diarrhea after that. Daughter states that last two bowel movements are not right. She cannot hold bowel movement. Daughter noticed that the patient has thick, nonbloody, watery like fluid coming out of her mouth. vomiting, the patient denies any history of peptic ulcer. No fever. No chills. No sick contact. PAST MEDICAL HISTORY: As above. Hypertension, asthma, COPD, diabetes insipidus, appendectomy, cholecystectomy. FAMILY HISTORY: Father and mother, noncontributory. HABITS: Never smoked. No drugs. No ethanol. ALLERGIES: THE PATIENT IS ALLERGIC WITH CORTISONE. HOME MEDICATIONS: Albuterol, metoprolol, Lipitor, metformin, Detrol. REVIEW OF SYSTEMS: The patient was seen and examined at the bedside in the ER. Daughter and son were sitting on the bedside also. They did translation for me. The patient is complaining of shortness of breath, abdominal pain, black diarrhea. No fever. No chills. No headache. No dizziness. No hematuria. PHYSICAL EXAMINATION: VITAL SIGNS: Temperature 97.9, pulse 92, respiratory rate 18, blood pressure 115/63. HEENT: Head: Normocephalic, atraumatic. Eyes: PERRLA. Extraocular muscles intact. Conjunctivae clear. Nose patent. Mucous membrane moist. NECK: Supple. No carotid bruit. No JVD or thyromegaly. CHEST: Clear to auscultation. ABDOMEN: Soft. Bowel sounds positive. No organomegaly. EXTREMITIES: No edema, no cyanosis. NEUROLOGIC: The patient is awake and alert. Moving all 4 extremities. No focal deficit. LABORATORY DATA: White blood cell 12.2, hemoglobin 13.9, hematocrit 42.5, platelets 213. Sodium 140, potassium 3.7, BUN 11, creatinine 0.6, glucose 68. AST 21, ALT 27. ASSESSMENT AND PLAN: Ms. Meliza Benitez is a 72-year-old lady with leukocytosis, urinary tract infection, came with abdominal pain, shortness of breath. CAT scan of the abdomen and pelvis done, showed no acute intraabdominal findings, fluid filled distal esophagus, possibly reflux. The patient speaks Czech but family is always sitting on the bedside, helping else. The patient has history of hypertension, diabetes mellitus, coronary artery disease, asthma, gastroesophageal reflux disease, came with shortness of breath, chest pain, abdominal pain, weakness, dark stool. Rectal exam negative for melena. Hemoglobin is stable. No signs of active bleeding. Continue monitoring H and H. Diarrhea in the setting of longstanding constipation likely overflow diarrhea. Given the age, weight loss and no history of endoscopy, the patient would warrant EGD and colonoscopy as outpatient to rule out malignancy as per GI. Mainly, the patient has reduced sphincter tone, needs workup. GI thinking of giving stool softener, laxative for constipation overflow incontinence if no bowel movement. Appreciated Dr. Olivarez's input. We will repeat labs. Gastric and deep venous thrombosis prophylaxes. We will follow up. Renae Sanchez MD MTDD
[2018-04-13] MEDS: POLYETHYLENE GLYCOL 3350 17 GM/Dose PACKET PO SCH ×2 (10:28→10:35)
[2018-04-13] MEDS: cefTRIAXone 1 gm 1 GM/100 ML BAG IVPB SCH (10:28)
[2018-04-13] MEDS: Metoprolol Succinate 50 mg XL Tab PO SCH (10:29)
--- NOTE | 2018-04-13 11:44 | CP.PCM.PN ---
<Edmund Mclaughlin - Last Filed: 04/13/18 11:41> Subjective - Date & Time of Evaluation Date of Evaluation: 04/13/18 Time of Evaluation: 11:41 - Subjective Subjective: No complaints. No BM today, feels constipated. No bleeding. Objective - Vital Signs/Intake and Output Vital Signs (last 24 hours): Temp Pulse Resp BP Pulse Ox 98.3 F 82 18 151/86 H 99 04/13/18 09:01 04/13/18 10:29 04/13/18 09:01 04/13/18 10:29 04/13/18 09:01 Intake and Output: 04/13/18 04/13/18 06:59 18:59 Intake Total 220 Balance 220 - Medications Medications: Current Medications Albuterol/Ipratropium (Duoneb 3 Mg/0.5 Mg (3 Ml) Ud) 3 ml IH [id number] [facility] Last Admin: 04/13/18 08:00 Dose: 3 ml Famotidine (Pepcid) 40 mg PO HS [facility] Hydromorphone HCl (Dilaudid) 0.5 mg IVP Q6H PRN PRN Reason: Pain, severe (8-10) Metronidazole (Flagyl) 500 mg in 100 mls @ 100 mls/hr IVPB Q8 [facility]; Protocol Last Admin: 04/13/18 05:07 Dose: 100 mls/hr Ceftriaxone Sodium (Rocephin 1 Gram Ivpb) 1 gm in 100 mls @ 100 mls/hr IVPB DAILY [facility]; Protocol Last Admin: 04/13/18 10:28 Dose: 100 mls/hr Metoprolol Succinate (Toprol Xl) 50 mg PO DAILY [facility] Last Admin: 04/13/18 10:29 Dose: 50 mg Ondansetron HCl (Zofran Inj) 4 mg IVP Q6H PRN PRN Reason: Nausea/Vomiting Polyethylene Glycol (Miralax) 17 gm PO DAILY [facility] Last Admin: 04/13/18 10:35 Dose: Not Given - Labs Labs: 04/13/18 08:00 04/13/18 08:00 PT 11.9 SECONDS (9.4-12.5) 04/11/18 12:00 INR 1.03 04/11/18 12:00 APTT 27.4 Seconds (25.1-36.5) 04/11/18 12:00 - Constitutional Appears: Non-toxic - Head Exam Head Exam: NORMAL INSPECTION - Eye Exam Eye Exam: Normal appearance - Respiratory Exam Respiratory Exam: NORMAL BREATHING PATTERN - Cardiovascular Exam Cardiovascular Exam: REGULAR RHYTHM - GI/Abdominal Exam GI & Abdominal Exam: Soft, Normal Bowel Sounds. absent: Tenderness - Extremities Exam Extremities Exam: Normal Inspection - Neurological Exam Neurological Exam: Alert, Oriented x3 - Psychiatric Exam Psychiatric exam: Normal Affect, Normal Mood - Skin Skin Exam: Dry Assessment and Plan - Assessment and Plan (Free Text) Assessment: 72 y/o Sinhala speaking F PMHx HTN, DM, CAD ([facility] single vessel CAD with EF 60%), asthma, GERD p/w sob/CP, abdominal pain, weakness, and dark stools. #Dark Stool; Diarrhea; abdominal pain: Rectal exam negative for melena/brbpr. VSS, HG/Hct stable. No signs of active bleeding, unlikely UGIB. Continue to monitor Hg/Hct and Bowel movements while inpatient. CTAP negative. Diarrhea in setting of longstanding constipation likely overflow diarrhea, however given age, weight loss, and no history of endoscopies patient would warrant EGD/CSPY as outpatient to r/o malignancy. Given reduced sphincter tone, if CSPY normal would pursue further workup for fecal incontinence as outpatient. Plan: - No plan for endoscopic procedure; f/u as outpatient for EGD/CSPY - Monitor HGB/HCT, montor BMs - Can consider stool softeners/laxatives for constipation induced overflow incontinence if no BM - heart healthy diet Pt seen and examined with Dr. Olivarez; see attestation for further recs/changes <Patricia Olivarez V - Last Filed: 04/14/18 22:59> Objective - Vital Signs/Intake and Output Vital Signs (last 24 hours): Temp Pulse Resp BP Pulse Ox 98.4 F 84 18 170/90 H 95 04/13/18 18:42 04/13/18 21:34 04/13/18 18:42 04/13/18 21:34 04/13/18 18:42 Intake and Output: 04/13/18 04/14/18 18:59 06:59 Intake Total 880 Balance 880 - Medications Medications: Current Medications Acetylcysteine (Acetylcysteine 20%) 4 ml IH BIDRESP [facility] Last Admin: 04/13/18 20:06 Dose: Not Given Albuterol/Ipratropium (Duoneb 3 Mg/0.5 Mg (3 Ml) Ud) 3 ml IH [id number] [facility] Last Admin: 04/13/18 20:02 Dose: 3 ml Diltiazem HCl (Cardizem) 30 mg PO Q8H [facility] Last Admin: 04/13/18 21:34 Dose: 30 mg Docusate Sodium (Colace) 100 mg PO BID [facility] Last Admin: 04/13/18 17:21 Dose: Not Given Famotidine (Pepcid) 40 mg PO HS [facility] Last Admin: 04/13/18 21:30 Dose: 40 mg Hydralazine HCl (Apresoline) 10 mg IVP Q6 PRN PRN Reason: hypertension Hydromorphone HCl (Dilaudid) 0.5 mg IVP Q6H PRN PRN Reason: Pain, severe (8-10) Metronidazole (Flagyl) 500 mg in 100 mls @ 100 mls/hr IVPB Q8 [facility]; Protocol Last Admin: 04/13/18 21:35 Dose: 100 mls/hr Ceftriaxone Sodium (Rocephin 1 Gram Ivpb) 1 gm in 100 mls @ 100 mls/hr IVPB DAILY [facility]; Protocol Last Admin: 04/13/18 10:28 Dose: 100 mls/hr Nystatin (Nystop Topical Powder) 1 gm TOP BID [facility] Last Admin: 04/13/18 17:22 Dose: 1 applic Ondansetron HCl (Zofran Inj) 4 mg IVP Q6H PRN PRN Reason: Nausea/Vomiting Polyethylene Glycol (Miralax) 17 gm PO BID [facility] Last Admin: 04/13/18 17:22 Dose: Not Given Sotalol HCl (Betapace) 80 mg PO Q12 [facility] Last Admin: 04/13/18 21:31 Dose: 80 mg - Labs Labs: 04/13/18 08:00 04/13/18 08:00 PT 11.9 SECONDS (9.4-12.5) 04/11/18 12:00 INR 1.03 04/11/18 12:00 APTT 27.4 Seconds (25.1-36.5) 04/11/18 12:00 Attending/Attestation - Attestation I have personally seen and examined this patient.: Yes I have fully participated in the care of the patient.: Yes I have reviewed all pertinent clinical information, including history, physical exam and plan: Yes Notes (Text): This is an addendum to GI progress report dictated by the GI Fellow.The patient was seen and examined earlier. Medical records, lab studies, imagings were reviewed. Last 24 hours events reviewed. Agreed with the above treatment plan as outlined in GI Fellow 's notes with the addition of the following No further episodes of dark stool Clear liquid diet slowly advance the diet Continue the antibiotics and followup cultures Elective endoscopic evaluation Followup hb 04/13/18 21:47 04/14/18 22:58
--- NOTE | 2018-04-13 12:07 | CP.PCM.CON ---
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 She has been having diarrhea,vomiting and generalized weakness. She had eaten in a buffet restaurant and since then symptoms occurred.History of hype rtension,diabetes,asthma,appendectomy,cholecystectomy, COPD, GERD,coronary artery disease, Seen and examined by me and Dr. Santoro Past Patient History - Infectious Disease Hx of Infectious Diseases: None - Tetanus Immunizations Tetanus Immunization: Unknown - Past Social History Smoking Status: Never Smoked - CARDIAC Hx Cardiac Disorders: Yes Hx Hypertension: Yes Hx Pacemaker: No - PULMONARY Hx Respiratory Disorders: Yes Hx Asthma: Yes (on nebulizer tx's at home) Hx Chronic Obstructive Pulmonary Disease (COPD): Yes Hx Emphysema: No - NEUROLOGICAL Hx Neurological Disorder: No HX Cerebrovascular Accident: No Hx Dementia: No Hx Seizures: No - HEENT Hx HEENT Problems: Yes Hx Cataracts: Yes (BILATERAL CATARACTS) Hx Glaucoma: Yes - RENAL Hx Chronic Kidney Disease: No - ENDOCRINE/METABOLIC Hx Endocrine Disorders: Yes Hx Diabetes Insipidus: Yes - HEMATOLOGICAL/ONCOLOGICAL Hx Blood Disorders: No Hx Cancer: No - INTEGUMENTARY Hx Dermatological Problems: No - MUSCULOSKELETAL/RHEUMATOLOGICAL Hx Musculoskeletal Disorders: No Hx Falls: No - GASTROINTESTINAL Hx Gastrointestinal Disorders: Yes (APPENDECTOMY,CHOLECYSTECTOMY) Hx Gall Bladder Disease: Yes Hx Gastroesophageal Reflux: Yes - GENITOURINARY/GYNECOLOGICAL Hx Genitourinary Disorders: No - PSYCHIATRIC Hx Psychophysiologic Disorder: No Hx Emotional Abuse: No Hx Physical Abuse: No Hx Substance Use: No - SURGICAL HISTORY Hx Surgeries: Yes Hx Appendectomy: Yes Hx Cholecystectomy: Yes - ANESTHESIA Hx Anesthesia: Yes Hx Anesthesia Reactions: No Hx Malignant Hyperthermia: No Meds Allergies/Adverse Reactions: Allergies Allergy/AdvReac Type Severity Reaction Status Date / Time cortisone Allergy Severe ITCHING/SWE Verified 04/11/18 15:04 LLING/RASH - Medications Medications: Current Medications Albuterol/Ipratropium (Duoneb 3 Mg/0.5 Mg (3 Ml) Ud) 3 ml IH [id number] [facility] Last Admin: 04/13/18 08:00 Dose: 3 ml Docusate Sodium (Colace) 100 mg PO BID [facility] Famotidine (Pepcid) 40 mg PO HS [facility] Hydromorphone HCl (Dilaudid) 0.5 mg IVP Q6H PRN PRN Reason: Pain, severe (8-10) Metronidazole (Flagyl) 500 mg in 100 mls @ 100 mls/hr IVPB Q8 [facility]; Protocol Last Admin: 04/13/18 05:07 Dose: 100 mls/hr Ceftriaxone Sodium (Rocephin 1 Gram Ivpb) 1 gm in 100 mls @ 100 mls/hr IVPB DAILY [facility]; Protocol Last Admin: 04/13/18 10:28 Dose: 100 mls/hr Metoprolol Succinate (Toprol Xl) 50 mg PO DAILY [facility] Last Admin: 04/13/18 10:29 Dose: 50 mg Nystatin (Nystop Topical Powder) 1 gm TOP BID [facility] Ondansetron HCl (Zofran Inj) 4 mg IVP Q6H PRN PRN Reason: Nausea/Vomiting Polyethylene Glycol (Miralax) 17 gm PO BID [facility] Results - Vital Signs Recent Vital Signs: Last Vital Signs Temp 98.3 F 04/13/18 09:01 Pulse 82 04/13/18 10:29 Resp 18 04/13/18 09:01 BP 151/86 H 04/13/18 10:29 Pulse Ox 99 04/13/18 09:01 - Labs Result Diagrams: 04/13/18 08:00 04/13/18 08:00 Labs: Laboratory Results - last 24 hr 04/12/18 04/12/18 04/12/18 12:17 16:10 19:39 WBC RBC Hgb Hct MCV MCH MCHC RDW Plt Count MPV Sodium Potassium Chloride Carbon Dioxide Anion Gap BUN Creatinine Est GFR ( Amer) Est GFR (Non-Af Amer) POC Glucose (mg/dL) 92 70 Random Glucose Calcium Iron TIBC % Saturation Lactate Dehydrogenase 477 Total Creatine Kinase 47 Troponin I 0.02 D Triglycerides 72 Cholesterol 132 LDL Cholesterol Direct 70 HDL Cholesterol 52 TSH 3rd Generation 04/12/18 04/12/18 04/13/18 19:39 21:13 07:22 WBC RBC Hgb Hct MCV MCH MCHC RDW Plt Count MPV Sodium Potassium Chloride Carbon Dioxide Anion Gap BUN Creatinine Est GFR ( Amer) Est GFR (Non-Af Amer) POC Glucose (mg/dL) 82 78 Random Glucose Calcium Iron 50 TIBC 326 % Saturation 15 L Lactate Dehydrogenase Total Creatine Kinase Troponin I Triglycerides Cholesterol LDL Cholesterol Direct HDL Cholesterol TSH 3rd Generation 04/13/18 04/13/18 04/13/18 08:00 08:00 08:00 WBC 5.4 D RBC 4.25 Hgb 12.2 Hct 37.7 MCV 88.7 MCH 28.7 MCHC 32.4 RDW 14.5 Plt Count 223 MPV 10.3 Sodium 141 Potassium 3.9 Chloride 106 Carbon Dioxide 28 Anion Gap 10 BUN 3 L Creatinine 0.6 L Est GFR ( Amer) > 60 Est GFR (Non-Af Amer) > 60 POC Glucose (mg/dL) Random Glucose 86 Calcium 9.3 Iron TIBC % Saturation Lactate Dehydrogenase Total Creatine Kinase Troponin I Triglycerides Cholesterol LDL Cholesterol Direct HDL Cholesterol TSH 3rd Generation 1.93 Assessment & Plan - Assessment and Plan (Free Text) Assessment: A 72 year old, portuguese speaking, poor historian, chart reviewed, morbidly obese female who came in to the ER due to chest pain and shortness of breath an hour prior to admission. 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 atypical chest pain, rule out acute coronary syndrome. Initial EKG Atrial fibrillation with RVR 130's.Converted to NSR 80's. Telemetry now, NSR.New onset atrial fibrillation. Review of previous cardiac work up: 02/12/17- Cardiac cath done due to positive stress test LVEF 60 % Non-obstructive coronary artery disease Plan: For ECHO today Initial 12 lead EKG in ER ,Atrial fibrillation with rapid rate Telemetry now- NSR at 70's New onset atrial fibrillation Will start Cardizem and Sotalol Will repeat EKG in am, EKG today Discontinue Toprol PRN hydralazine for uncontrolled blood pressure On Pepcid 40 mg daily, Toprol XL 50 mg daily-dc'd Continue IV antibiotics as ordered GI work up in progress Continue current treatment Continue current medications Lifestyle modification Weight reduction Will follow up Chart reviewed Further recommendations during hospital course Plan and treatment discussed with Dr. Santoro Thank you Dr. Sanchez for the opportunity of taking care of Ms. Meliza Gandhi Eli - Date & Time Date: 04/13/18 Time: 06:55
--- NOTE | 2018-04-13 12:30 | PN ---
DATE: 04/12/2018 SUBJECTIVE: Patient is a 72-year-old female. Patient was seen and examined on the bedside on 04/12/2018, looking comfortable. No nausea, vomiting, or diarrhea. No hematuria or hematochezia. No swelling of the legs. No chest pain. No palpitation. Still having abdominal pain. Family was around. PHYSICAL EXAMINATION: VITAL SIGNS: Temperature 98.1, pulse 81, blood pressure 130/95, respiratory rate 18. HEENT: Head: Normocephalic, atraumatic. Eyes: PERRLA. Extraocular muscles intact. Conjunctivae clear. Nose patent. Mucous membrane moist. NECK: Supple. No carotid bruit. No JVD or thyromegaly. CHEST: Bilaterally symmetrical. HEART: S1 and S2 positive. LUNGS: Clear to auscultation. ABDOMEN: Soft. Bowel sounds present. No organomegaly. EXTREMITIES: No edema. No cyanosis. NEUROLOGIC: Patient is awake and alert. Moving all 4 extremities. No focal deficit. MEDICATIONS: Dilaudid, DuoNeb, MiraLax, Toprol, Zofran. LABORATORY DATA: White blood cells 12.2, hemoglobin 13.9, hematocrit 42.5, platelets 213. Glucose 82. Cholesterol 132. ASSESSMENT AND PLAN: Ms. Meliza Benitez is a 72-year-old lady with leukocytosis, iron deficiency, history of hypertension, diabetes mellitus, coronary artery disease, asthma, gastroesophageal reflux disease, came with shortness of breath, chest pain, abdominal pain. History of appendectomy, cholecystectomy, now has leukocytosis. Speaks Yoruba language, but her is always on the bedside. Dark stool, diarrhea. No plan for endoscopic procedure right now, need as outpatient. Monitoring hemoglobin and hematocrit. According to GI, if her constipation, overflow, incontinence, then maybe patient need stool softener, full liquid diet. Appreciated Dr. Olivarez's input. Consult called with Dr. Smart and Dr. Porras for chest pain and shortness of breath. Getting pain medication. We will start antibiotics. Repeat labs. We will follow up. Renae Sanchez MD
[2018-04-13 13:32] LABS: FOLATE > 20.0 ng/mL
--- NOTE | 2018-04-13 15:11 | CARD ---
APPROVED REPORT Date of service: 04/13/2018 EKG Measurement Heart [id number] <Conclusion> Normal sinus rhythm Normal ECG
[2018-04-13] MEDS: Nystatin 100,000 Units/gm Topical Pow(15 gm) TOP SCH ×2 (15:29→17:22)
[2018-04-13] MEDS ORDERED: POLYETHYLENE GLYCOL 3350 17 GM/Dose PACKET PO SCH (18:00)
[2018-04-13] MEDS ORDERED: Budesonide 0.5 mg/2 ml Inhal Susp UD IH SCH (20:00)
[2018-04-13] MEDS ORDERED: Arformoterol 15 mcg/2 ml Inh Sol IH SCH ×2 (20:00)
[2018-04-13] MEDS: Acetylcysteine 20% Inhal Soln (4ml) IH SCH ×2 (20:02→20:06)
[2018-04-14] MEDS: Albuterol-Ipratrop 3 mg / 0.5 (3 ml) UD IH SCH ×4 (01:15→19:54)
[2018-04-14] MEDS: metroNIDAZOLE IV 500 mg/100 ml 500 MG/100 ML BAG IVPB SCH ×3 (06:23→22:01)
[2018-04-14] MEDS: Acetylcysteine 20% Inhal Soln (4ml) IH SCH ×2 (07:50→19:55)
--- NOTE | 2018-04-14 09:41 | CP.PCM.PN ---
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 Santroo Objective - Vital Signs/Intake and Output Vital Signs (last 24 hours): Temp Pulse Resp BP Pulse Ox 98 F 66 19 144/83 97 04/14/18 08:12 04/14/18 08:12 04/14/18 08:12 04/14/18 08:12 04/14/18 08:12 Intake and Output: 04/14/18 04/14/18 06:59 18:59 Intake Total 1240 Balance 1240 - Medications Medications: Current Medications Acetylcysteine (Acetylcysteine 20%) 4 ml IH BIDRESP [facility] Last Admin: 04/14/18 07:50 Dose: 4 ml Albuterol/Ipratropium (Duoneb 3 Mg/0.5 Mg (3 Ml) Ud) 3 ml IH [id number] [facility] Last Admin: 04/14/18 07:51 Dose: 3 ml Diltiazem HCl (Cardizem) 30 mg PO Q8H [facility] Last Admin: 04/14/18 06:23 Dose: 30 mg Famotidine (Pepcid) 40 mg PO HS [facility] Last Admin: 04/13/18 21:30 Dose: 40 mg Hydralazine HCl (Apresoline) 10 mg IVP Q6 PRN PRN Reason: hypertension Hydromorphone HCl (Dilaudid) 0.5 mg IVP Q6H PRN PRN Reason: Pain, severe (8-10) Metronidazole (Flagyl) 500 mg in 100 mls @ 100 mls/hr IVPB Q8 [facility]; Protocol Last Admin: 04/14/18 06:23 Dose: 100 mls/hr Ceftriaxone Sodium (Rocephin 1 Gram Ivpb) 1 gm in 100 mls @ 100 mls/hr IVPB DAILY [facility]; Protocol Last Admin: 04/13/18 10:28 Dose: 100 mls/hr Nystatin (Nystop Topical Powder) 1 gm TOP BID [facility] Last Admin: 04/13/18 17:22 Dose: 1 applic Ondansetron HCl (Zofran Inj) 4 mg IVP Q6H PRN PRN Reason: Nausea/Vomiting Sotalol HCl (Betapace) 80 mg PO Q12 [facility] Last Admin: 04/13/18 21:31 Dose: 80 mg - Labs Labs: 04/13/18 08:00 04/13/18 08:00 PT 11.9 SECONDS (9.4-12.5) 04/11/18 12:00 INR 1.03 04/11/18 12:00 APTT 27.4 Seconds (25.1-36.5) 04/11/18 12:00 - Constitutional Appears: Non-toxic, No Acute Distress - Head Exam Head Exam: NORMAL INSPECTION, NORMOCEPHALIC - Eye Exam Eye Exam: Normal appearance Pupil Exam: NORMAL ACCOMODATION - ENT Exam ENT Exam: Mucous Membranes Moist - Respiratory Exam Respiratory Exam: Clear to Ausculation Bilateral, NORMAL BREATHING PATTERN - Cardiovascular Exam Cardiovascular Exam: REGULAR RHYTHM, +S1, +S2 Additional comments: Telemetry-NSR 70's - GI/Abdominal Exam GI & Abdominal Exam: Soft, Normal Bowel Sounds - Extremities Exam Extremities Exam: Full ROM, Normal Capillary Refill - Neurological Exam Neurological Exam: Alert, Awake, Oriented x3 - Psychiatric Exam Psychiatric exam: Normal Affect, Normal Mood - Skin Skin Exam: Dry, Normal Color, Warm Assessment and Plan - Assessment and Plan (Free Text) Assessment: A 72 year old, wolof speaking, poor historian, chart reviewed, morbidly obese female who came in to the ER due to chest pain and shortness of breath an hour prior to admission. 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 She had eaten in a buffet restaurant and since then symptoms occurred.History of hypertension,diabetes,asthma,appendectomy,cholecystectomy, COPD, GERD,non obst ructive coronary artery disease. atypical chest pain, rule out acute coronary syndrome. Initial EKG Atrial fibrillation with RVR 130's.Converted to NSR 80's. Telemetry now, NSR. New onset atrial fibrillation.started Cardizem and Sotalol.Echo done awaiting results. Review of previous cardiac work up: 02/12/17- Cardiac cath done due to positive stress test LVEF 60 % Non-obstructive coronary artery disease Plan: Denies chest pain or shortness of breath ECHO done-awaiting/pending result New onset atrial fibrillation Started Cardizem and Sotalol 12 lead EKG yesterday- normal sinus rhythm Repeat EKG today Controlled blood pressure Controlled heart rate On Pepcid 40 mg daily, Cardizem 30 mg TID, Sotalol 80 mg BID Continue IV antibiotics as ordered GI work up in progress Continue current treatment Continue current medications Lifestyle modification Weight reduction Will follow up Chart reviewed Plan and treatment discussed with Dr. Santoro
[2018-04-14] MEDS: cefTRIAXone 1 gm 1 GM/100 ML BAG IVPB SCH (10:00)
--- NOTE | 2018-04-14 12:03 | CP.PCM.PN ---
<LilianearleneEdmund - Last Filed: 04/14/18 12:04> Subjective - Date & Time of Evaluation Date of Evaluation: 04/14/18 Time of Evaluation: 12:01 - Subjective Subjective: I had long conversations with patient with translator and interpreter. She has improving diarrhea that is much better than when it started. She had 1 BM today that was brown, and not much water. She is tolerating diet. No signs of bleeding. No vomiting. Objective - Vital Signs/Intake and Output Vital Signs (last 24 hours): Temp Pulse Resp BP Pulse Ox 98 F 66 19 144/83 97 04/14/18 08:12 04/14/18 09:59 04/14/18 08:12 04/14/18 09:59 04/14/18 08:12 Intake and Output: 04/14/18 04/14/18 06:59 18:59 Intake Total 1240 Balance 1240 - Medications Medications: Current Medications Acetylcysteine (Acetylcysteine 20%) 4 ml IH BIDRESP [facility] Last Admin: 04/14/18 07:50 Dose: 4 ml Albuterol/Ipratropium (Duoneb 3 Mg/0.5 Mg (3 Ml) Ud) 3 ml IH [id number] [facility] Last Admin: 04/14/18 07:51 Dose: 3 ml Diltiazem HCl (Cardizem) 30 mg PO Q8H [facility] Last Admin: 04/14/18 06:23 Dose: 30 mg Famotidine (Pepcid) 40 mg PO HS [facility] Last Admin: 04/13/18 21:30 Dose: 40 mg Hydralazine HCl (Apresoline) 10 mg IVP Q6 PRN PRN Reason: hypertension Hydromorphone HCl (Dilaudid) 0.5 mg IVP Q6H PRN PRN Reason: Pain, severe (8-10) Metronidazole (Flagyl) 500 mg in 100 mls @ 100 mls/hr IVPB Q8 [facility]; Protocol Last Admin: 04/14/18 06:23 Dose: 100 mls/hr Ceftriaxone Sodium (Rocephin 1 Gram Ivpb) 1 gm in 100 mls @ 100 mls/hr IVPB DAILY [facility]; Protocol Last Admin: 04/14/18 10:00 Dose: 100 mls/hr Nystatin (Nystop Topical Powder) 1 gm TOP BID [facility] Last Admin: 04/13/18 17:22 Dose: 1 applic Ondansetron HCl (Zofran Inj) 4 mg IVP Q6H PRN PRN Reason: Nausea/Vomiting Sotalol HCl (Betapace) 80 mg PO Q12 [facility] Last Admin: 04/14/18 09:59 Dose: 80 mg - Labs Labs: 04/13/18 08:00 04/13/18 08:00 PT 11.9 SECONDS (9.4-12.5) 04/11/18 12:00 INR 1.03 04/11/18 12:00 APTT 27.4 Seconds (25.1-36.5) 04/11/18 12:00 - Constitutional Appears: Well, Non-toxic - Head Exam Head Exam: NORMAL INSPECTION - Eye Exam Eye Exam: Normal appearance - ENT Exam ENT Exam: Mucous Membranes Moist - Respiratory Exam Respiratory Exam: Clear to Ausculation Bilateral, NORMAL BREATHING PATTERN - Cardiovascular Exam Cardiovascular Exam: Irregular Rhythm, +S1, +S2 - GI/Abdominal Exam GI & Abdominal Exam: Soft, Normal Bowel Sounds. absent: Tenderness - Extremities Exam Extremities Exam: Normal Inspection - Neurological Exam Neurological Exam: Alert, Awake, Normal Gait, Oriented x3 - Psychiatric Exam Psychiatric exam: Normal Affect, Normal Mood - Skin Skin Exam: Dry, Normal Color Assessment and Plan - Assessment and Plan (Free Text) Assessment: 72 y/o Portuguese speaking F PMHx HTN, DM, CAD ([facility] single vessel CAD with EF 60%), asthma, GERD p/w sob/CP, abdominal pain, weakness, and dark stools. #Dark Stool; Diarrhea; abdominal pain: Rectal exam negative for melena/brbpr. VSS, HG/Hct stable. No signs of active bleeding, unlikely UGIB. Continue to monitor Hg/Hct and Bowel movements while inpatient. CTAP negative. Diarrhea in setting of longstanding constipation likely overflow diarrhea, however given age, weight loss, and no history of endoscopies patient would warrant EGD/CSPY as outpatient to r/o malignancy. Given reduced sphincter tone, if CSPY normal would pursue further workup for fecal incontinence as outpatient. C.diff negative. #New atrial fibrillation #Chronic constipation #T2DM #GERD Plan: - No plan for endoscopic procedure; f/u as outpatient for EGD/CSPY - Monitor HGB/HCT, montor BMs - Continue Famotidine - Titrate laxatives - heart healthy diet - If cardio is planning OAC for Afib, we will discuss with team at that time. There is no concern for active GI bleed at this time. <Patricia Olivarez V - Last Filed: 04/14/18 23:02> Objective - Vital Signs/Intake and Output Vital Signs (last 24 hours): Temp Pulse Resp BP Pulse Ox 98.2 F 69 20 155/88 H 95 04/14/18 17:38 04/14/18 22:03 04/14/18 17:38 04/14/18 22:03 04/14/18 17:38 Intake and Output: 04/14/18 04/15/18 18:59 06:59 Intake Total 960 Output Total 5 Balance 955 - Medications Medications: Current Medications Acetylcysteine (Acetylcysteine 20%) 4 ml IH BIDRESP [facility] Last Admin: 04/14/18 19:55 Dose: 4 ml Albuterol/Ipratropium (Duoneb 3 Mg/0.5 Mg (3 Ml) Ud) 3 ml IH [id number] [facility] Last Admin: 04/14/18 19:54 Dose: 3 ml Diltiazem HCl (Cardizem) 30 mg PO Q8H [facility] Last Admin: 04/14/18 22:02 Dose: 30 mg Famotidine (Pepcid) 40 mg PO HS [facility] Last Admin: 04/14/18 22:02 Dose: 40 mg Hydralazine HCl (Apresoline) 10 mg IVP Q6 PRN PRN Reason: hypertension Hydromorphone HCl (Dilaudid) 0.5 mg IVP Q6H PRN PRN Reason: Pain, severe (8-10) Metronidazole (Flagyl) 500 mg in 100 mls @ 100 mls/hr IVPB Q8 [facility]; Protocol Last Admin: 04/14/18 22:01 Dose: 100 mls/hr Ceftriaxone Sodium (Rocephin 1 Gram Ivpb) 1 gm in 100 mls @ 100 mls/hr IVPB DAILY [facility]; Protocol Last Admin: 04/14/18 10:00 Dose: 100 mls/hr Nystatin (Nystop Topical Powder) 1 gm TOP BID [facility] Last Admin: 04/14/18 18:02 Dose: 1 applic Ondansetron HCl (Zofran Inj) 4 mg IVP Q6H PRN PRN Reason: Nausea/Vomiting Sotalol HCl (Betapace) 80 mg PO Q12 [facility] Last Admin: 04/14/18 22:03 Dose: 80 mg - Labs Labs: 04/13/18 08:00 04/13/18 08:00 PT 11.9 SECONDS (9.4-12.5) 04/11/18 12:00 INR 1.03 04/11/18 12:00 APTT 27.4 Seconds (25.1-36.5) 04/11/18 12:00 Attending/Attestation - Attestation I have personally seen and examined this patient.: Yes I have fully participated in the care of the patient.: Yes I have reviewed all pertinent clinical information, including history, physical exam and plan: Yes Notes (Text): This is an addendum to GI progress report dictated by the GI Fellow.The patient was seen and examined earlier. Medical records, lab studies, imagings were reviewed. Last 24 hours events reviewed. Agreed with the above treatment plan as outlined in GI Fellow 's notes with the addition of the following Feels better tolerating diet Cardiology followup History of A.fib one episode On examination abdomen soft non-tender Will slowly advance the diet continue PPI short course 04/14/18 23:00
--- NOTE | 2018-04-14 12:20 | CARD ---
APPROVED REPORT Date of service: 04/14/2018 EKG Measurement Heart [id number] ID [id number] <Conclusion> Normal sinus rhythm Inferior infarct, age undetermined Abnormal ECG
[2018-04-14] MEDS: Nystatin 100,000 Units/gm Topical Pow(15 gm) TOP SCH ×2 (12:45→18:02)
--- NOTE | 2018-04-14 15:42 | CARD ---
APPROVED REPORT Date of service: 04/13/2018 EXAM: Two-dimensional and M-mode echocardiogram with Doppler and color Doppler. INDICATION Evaluate LV function 2D DIMENSIONS Left Atrium (2D)3.6 (1.6-4.0cm)IVSd1.2 (0.7-1.1cm) Aortic Root (2D)3.0 (2.0-3.7cm)LVDd4.1 (3.9-5.9cm) PWd1.2 (0.7-1.1cm)LVDs2.0 (2.5-4.0cm) FS (%) 51.2 %LVEF (%)82.8 (>50%) M-Mode DIMENSIONS Aortic Cusp Exc.2.10 (1.5-2.0cm) Aortic Valve AoV Peak Zhjbioth428.0cm/French Peak GR.8mmHg Mitral Valve MV E Eqfmbhsk62.0cm/sMV A Mvvojkwk54.9cm/sE/A ratio0.8 TDI Lateral E' Peak V7.60cm/sMedial E' Peak V5.36cm/sE/Lateral E'9.3 E/Medial E'13.2 Pulmonary Valve PV Peak Vbichqwo87.3cm/sPV Peak Grad.4mmHg Tricuspid Valve TR Peak Ovmuwtaf403zc/sRAP [id number] Peak Gr.20mmHg [id number] LEFT VENTRICLE The left ventricle is normal size. The left ventricular function is normal. The left ventricular ejection fraction is within the normal range. LV Ej.Fr: 59%. Tissue Doppler imaging reveals mild left ventricular diastolic dysfunction. RIGHT VENTRICLE The right ventricle is normal size. The right ventricular systolic function is normal. AORTIC VALVE The aortic valve is normal in structure. MITRAL VALVE The mitral valve is normal in structure. TRICUSPID VALVE The tricuspid valve is normal in structure. PERICARDIAL EFFUSION There is no pericardial effusion. <Conclusion> The left ventricle is normal size. The left ventricular function is normal. The left ventricular ejection fraction is within the normal range. LV Ej.Fr: 59%. Tissue Doppler imaging reveals mild left ventricular diastolic dysfunction. The right ventricle is normal size. The right ventricular systolic function is normal. The aortic valve is normal in structure. The mitral valve is normal in structure. Trace Mitral Regurge. The tricuspid valve is normal in structure. Tricuspid Regurge. There is no pericardial effusion.
[2018-04-14 17:39] VITALS: RESP 20
--- NOTE | 2018-04-14 21:25 | CON ---
DATE: 04/13/2018 PULMONARY CONSULTATION REFERRING PHYSICIAN: Renea Sanchez MD REASON FOR CONSULTATION: Chronic obstructive lung disease and chest pain. HISTORY OF PRESENT ILLNESS: This is a 72-year-old female with medical history significant for hypertension, asthma, appendectomy, cholecystectomy, admitted after seen in the Emergency Department with complaint of chest pain and shortness of breath, intermittent coughing for several weeks and also complaint of stomach pain. She has diarrhea since last night. The patient is seen at bed, still having some chest pain and shortness of breath. She has intermittent coughing. No nausea, no vomiting, no chills, no fever, no leg pain, no leg swelling reported. No recent travel. PAST MEDICAL HISTORY: As per history of present illness. FAMILY HISTORY: No significant cardiopulmonary disease reported. SOCIAL HISTORY: Denies smoke, drugs or alcohol. ALLERGIES: CORTISONE. MEDICATIONS: Sotalol 80 mg every 12 hours, Pepcid 40 mg at night, MiraLAX 17 gm twice a day, Colace 100 mg twice a day, diltiazem 30 mg every 8 hours, hydralazine 10 mg every 6 hours as needed, nystatin topical twice a day, ceftriaxone 1 gm IV piggyback daily, Flagyl 500 mg IV piggyback every 8 hours, DuoNeb 3 mL every 6 hours, Zofran 4 mg as needed, and Dilaudid 0.5 IV push every 6 hours as needed. REVIEW OF SYSTEMS: The patient is sitting up in bed, feels okay. Still having some chest pain and shortness of breath. No immediate distress. No headache. No nausea, no vomiting, no leg pain and no leg swelling. States she snores at night and has daytime sleepiness. PHYSICAL EXAMINATION: VITAL SIGNS: Temperature 98.3, pulse 82, respirations 18, blood pressure 151/86, pulse ox 99% on room air. GENERAL: No acute distress. HEENT: Moist mucous membrane. Crowded airway. Mallampati 4. NECK: Short, thick. No JVD. LUNGS: Few scattered rhonchi, wheezing. CARDIAC: S1 and S2. ABDOMEN: Soft, nontender. EXTREMITIES: No edema. NEUROLOGIC: Awake, alert. Follows simple commands. LABORATORY DATA: Results reviewed. WBC 5.4, hemoglobin 12.2, hematocrit 37.7, platelet 223. Sodium 141, potassium 3.9, chloride 106, CO2 28, anion gap 10, BUN 3, creatinine 0.6, GFR greater than 60, glucose 117, calcium 9.3, folate 1.93. EKG: Normal sinus rhythm. IMPRESSION AND PLAN: Asthma, coronary artery disease, gastroesophageal reflux disease, hypertension, history of appendectomy and cholecystectomy, chronic obstructive pulmonary disease, diabetes, and leukocytosis. From pulmonary point of view, we will add inhaled bronchodilators, Brovana and Pulmicort. Also, a short gastroesophageal reflux disease precaution. Case was discussed with the patient and daughter at bedside. She will need Protonix 40 mg daily. Also, check D-dimer to rule out blood clots. Bowel regimen, pain management, on antibiotics. This patient was examined with Dr. Smart, discussed assessment and plan as described above. Recommend sleep study and full pulmonary function test as outpatient following discharge. Thank you for this consult and we will follow with you. Martita Prescott APN Aime Smart MD
--- NOTE | 2018-04-14 21:52 | PN ---
DATE: 04/14/2018 PULMONARY PROGRESS NOTE REFERRING PHYSICIAN: Renae Sanchez MD SUBJECTIVE: She is sitting on the side of the bed. Feels little better. No headache. No rhinitis. Has mild cough. Mild abdominal discomfort. No nausea. No leg pain or leg swelling. PHYSICAL EXAMINATION: GENERAL: In no acute distress. VITAL SIGNS: Temperature is 98, heart rate 67, respiratory rate is 18, blood pressure 155/88, pulse ox 97% on room air. HEENT: Moist mucous membrane. Crowded airway. Mallampati score is 4. NECK: Supple. No JVD. LUNGS: Have a few scattered rhonchi. HEART: S1 and S2. ABDOMEN: Soft, mild epigastric tenderness. EXTREMITIES: There is no edema. NEUROLOGICAL: Awake, alert. Follows simple commands. MEDICATIONS: She is on Mucomyst inhaled twice a day, hydralazine 10 mg every 6 hours p.r.n., sotalol 80 mg every 12 hours, diltiazem 30 mg every 8 hours, Dilaudid 0.5 mg every 6 hours p.r.n., DuoNeb every 6 hours, Flagyl 500 mg every 8 hours, nystatin 1 g topically twice a day, Pepcid 40 mg daily, Rocephin 1 g IV daily, Zofran 4 mg every 6 hours p.r.n. LABORATORY DATA: Shows no new lab is available today, since yesterday. Microbiology: Blood culture has been negative. IMPRESSION AND PLAN: Chronic obstructive lung disease, probably has severe gastroesophageal reflux disease and gastroparesis, cannot rule out sleep apnea syndrome, atrial fibrillation. We will continue inhaled bronchodilator. Gastric prophylaxis. Deep venous thrombosis prophylaxis. Keep head elevated at 45 degree while sleeping. We recommend pulmonary function test and sleep study upon discharge as outpatient. Thank you and we will follow with you. Aime Smart MD
--- NOTE | 2018-04-15 00:38 | PN ---
DATE: 04/14/2018 SUBJECTIVE: The patient is a 72-year-old female. The patient was seen and examined on the bedside on 04/14/2018, looking comfortable. No shortness of breath. No nausea, vomiting, or diarrhea. No hematuria or hematochezia. No swelling of the leg. No chest pain. No palpitation. No headache. No dizziness. PHYSICAL EXAMINATION: VITAL SIGNS: Temperature 98, pulse 66, respiratory rate 19, blood pressure 145/83, pulse oximetry 97%. HEENT: Head: Normocephalic, atraumatic. Eyes: PERRLA. Extraocular muscles intact. Conjunctivae clear. Nose patent. Mucous membrane moist. NECK: Supple. No carotid bruit, JVD, or thyromegaly. CHEST: Bilaterally symmetrical. HEART: S1 and S2 positive. LUNGS: Clear to auscultation. ABDOMEN: Soft. Bowel sounds present. No organomegaly. EXTREMITIES: No edema. No cyanosis. NEUROLOGIC: The patient is awake and alert. Moving all 4 extremities. No focal deficit. MEDICATIONS: Acetylcysteine, DuoNeb, Cardizem, Pepcid, hydralazine, Dilaudid, Flagyl, Rocephin, nystatin, Zofran, sotalol. LABORATORY DATA: White blood cells 5.4, hemoglobin 12.2, hematocrit 37.7, platelets 223. Sodium 141, potassium 3.9, BUN 3, creatinine 0.3, glucose 86. ASSESSMENT AND PLAN: Ms. Meliza Benitez is a 72-year-old lady, speaks French language, poor historian. Has obesity. Came with shortness of breath; diarrhea; nausea; vomiting; generalized weakness, after eating in a buffet restaurant and since the symptoms occurred; history of hypertension; diabetes mellitus; appendectomy; cholecystectomy; chronic obstructive pulmonary disease; gastroesophageal reflux disease; dyspepsia; nonobstructive coronary artery disease; atypical chest pain, rule out coronary artery syndrome. Initial EKG, atrial fibrillation with rapid ventricular response 130s, converted to normal sinus rhythm 80s. On the telemetry, now it is normal sinus rhythm. New-onset atrial fibrillation, started on Cardizem and sotalol. Echo done, waiting for the result. Cardiac cath done due to positive stress test, ejection fraction 60%, nonobstructive coronary artery disease. The patient is improving. Continue present treatment on Pepcid, Cardizem, sotalol. Continue intravenous antibiotics. Gastric and deep venous thrombosis prophylaxes. Lifestyle modification. Repeat labs. We will follow up. Renae Sanchez MD
[2018-04-15] MEDS: Albuterol-Ipratrop 3 mg / 0.5 (3 ml) UD IH SCH ×2 (01:29→07:48)
[2018-04-15] MEDS: metroNIDAZOLE IV 500 mg/100 ml 500 MG/100 ML BAG IVPB SCH ×4 (05:54→22:08)
--- NOTE | 2018-04-15 07:19 | CP.PCM.PN ---
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 Porras Objective - Vital Signs/Intake and Output Vital Signs (last 24 hours): Temp Pulse Resp BP Pulse Ox 98.2 F 64 20 123/82 95 04/14/18 17:38 04/15/18 05:54 04/14/18 17:38 04/15/18 05:54 04/14/18 17:38 Intake and Output: 04/15/18 04/15/18 06:59 18:59 Intake Total 1180 Output Total 5 Balance 1175 - Medications Medications: Current Medications Acetylcysteine (Acetylcysteine 20%) 4 ml IH BIDRESP [facility]VIS Last Admin: 04/14/18 19:55 Dose: 4 ml Albuterol/Ipratropium (Duoneb 3 Mg/0.5 Mg (3 Ml) Ud) 3 ml IH [id number] DELVIS Last Admin: 04/15/18 01:29 Dose: 3 ml Diltiazem HCl (Cardizem) 30 mg PO Q8H [facility] Last Admin: 04/15/18 05:54 Dose: 30 mg Famotidine (Pepcid) 40 mg PO HS [facility] Last Admin: 04/14/18 22:02 Dose: 40 mg Hydralazine HCl (Apresoline) 10 mg IVP Q6 PRN PRN Reason: hypertension Hydromorphone HCl (Dilaudid) 0.5 mg IVP Q6H PRN PRN Reason: Pain, severe (8-10) Metronidazole (Flagyl) 500 mg in 100 mls @ 100 mls/hr IVPB Q8 [facility]; Protocol Last Admin: 04/15/18 05:59 Dose: Not Given Ceftriaxone Sodium (Rocephin 1 Gram Ivpb) 1 gm in 100 mls @ 100 mls/hr IVPB DAILY [facility]; Protocol Last Admin: 04/14/18 10:00 Dose: 100 mls/hr Nystatin (Nystop Topical Powder) 1 gm TOP BID [facility] Last Admin: 04/14/18 18:02 Dose: 1 applic Ondansetron HCl (Zofran Inj) 4 mg IVP Q6H PRN PRN Reason: Nausea/Vomiting Sotalol HCl (Betapace) 80 mg PO Q12 [facility] Last Admin: 04/14/18 22:03 Dose: 80 mg - Labs Labs: 04/13/18 08:00 04/13/18 08:00 PT 11.9 SECONDS (9.4-12.5) 04/11/18 12:00 INR 1.03 04/11/18 12:00 APTT 27.4 Seconds (25.1-36.5) 04/11/18 12:00 - Constitutional Appears: Non-toxic, No Acute Distress - Head Exam Head Exam: NORMAL INSPECTION, NORMOCEPHALIC - Eye Exam Eye Exam: Normal appearance Pupil Exam: NORMAL ACCOMODATION - ENT Exam ENT Exam: Mucous Membranes Moist, Normal Exam - Respiratory Exam Respiratory Exam: Clear to Ausculation Bilateral, NORMAL BREATHING PATTERN - Cardiovascular Exam Cardiovascular Exam: REGULAR RHYTHM, +S1, +S2 Additional comments: Telemetry NSR 60's - GI/Abdominal Exam GI & Abdominal Exam: Soft, Normal Bowel Sounds - Extremities Exam Extremities Exam: Full ROM, Normal Capillary Refill - Neurological Exam Neurological Exam: Alert, Awake, Oriented x3 - Psychiatric Exam Psychiatric exam: Normal Affect, Normal Mood - Skin Skin Exam: Dry, Normal Color, Warm Assessment and Plan - Assessment and Plan (Free Text) Assessment: A 72 year old, albanian speaking, poor historian, chart reviewed, morbidly obese female who came in to the ER due to chest pain and shortness of breath an hour prior to admission. 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 atypical chest pain, rule out acute coronary syndrome. Initial EKG Atrial fibrillation with RVR 130's.Converted to NSR 80's. Telemetry now, NSR. New onset atrial fibrillation.started Cardizem and Sotalol. Plan: ECHO done- Normal LV size, normal structure LVEF 59%, Trace MR, no pericardial effusion Denies chest pain or shortness of breath New onset atrial fibrillation, now normal sinus rhythm Started Cardizem and Sotalol 12 lead EKG 04/13 & 04/14 - normal sinus rhythm No need for anticoagulation for now as patient in normal sinus rhythm Controlled blood pressure Controlled heart rate On Pepcid 40 mg daily, Cardizem 30 mg TID, Sotalol 80 mg BID Continue IV antibiotics as ordered GI and Pulmonary on consult Continue current treatment Continue current medications Lifestyle modification Weight reduction Will follow up Chart reviewed Plan and treatment discussed with Dr. Porras
[2018-04-15] MEDS: Acetylcysteine 20% Inhal Soln (4ml) IH SCH ×2 (07:48→19:40)
--- NOTE | 2018-04-15 07:54 | PN ---
DATE: 04/13/2018 SUBJECTIVE: The patient is a 72-year-old female. The patient was seen and examined on the bedside on 04/13/2018. No fever, no chills. No nausea, vomiting, or diarrhea. No hematuria or hematochezia. No headache. No dizziness. Complaining about just diarrhea, black color as per daughter. Daughter did translation for me. PHYSICAL EXAMINATION: VITAL SIGNS: Temperature 98.3, pulse 52, respiratory rate 18, blood pressure 150/86, pulse oximetry is 99. HEENT: Head normocephalic, atraumatic. Eyes PERRLA. Extraocular muscles intact. Conjunctivae clear. Nose patent. Mucous membrane moist. NECK: Supple. No carotid bruit. No JVD or thyromegaly. CHEST: Bilaterally symmetrical. HEART: S1 and S2 positive. LUNGS: Clear to auscultation. ABDOMEN: Soft. Bowel sounds positive. No organomegaly. EXTREMITIES: No edema. No cyanosis. NEUROLOGICAL: The patient is awake, alert. Moving all 4 extremities. No focal deficit. LABORATORY DATA: White blood cells 5.4, hemoglobin 12.2, hematocrit 37.7, platelets 223. Sodium 141, potassium 3.9, BUN , creatinine 0.6, glucose 86. ASSESSMENT AND PLAN: a 72-year-old lady, Hungarian-speaking, poor historian, daughter is on the bedside who did translation for me, has obesity, came to the emergency room with shortness of breath, diarrhea, vomiting, generalized weakness. On the day of admission, she ate open buffet, and as per patient, the symptoms started after that; history of hypertension; diabetes mellitus; asthma; appendectomy; cholecystectomy; chronic obstructive pulmonary disease; gastroesophageal reflux disease; dyspepsia; nonobstructive coronary artery disease; atypical chest pain; rule out acute coronary syndrome; new-onset atrial fibrillation. Continue telemetry. Pharmacy Messenger started Cardizem and sotalol. Repeat labs. Discontinue Toprol. Started hydralazine p.r.n. for uncontrolled blood pressure. On Pepcid, Toprol. Gastrointestinal workup in progress. Lifestyle modification. Weight reduction. GI is on the case also. Electrocardiography and echocardiography done, results are pending. Repeat labs. We will follow up. Renae Sanchez MD MTDJeb
--- NOTE | 2018-04-15 09:45 | CON ---
DATE: 04/13/2018 The patient is in room 373, bed 3. REASON FOR CONSULTATION: Abdominal pain, diarrhea, nausea. Also had episode of shortness of breath. HISTORY OF PRESENT ILLNESS: The patient after having a buffet yesterday started getting diarrhea. According to on the bedside, she has had four to five black bowel moments yesterday, and the patient stated that she felt nausea but did not throw up. She felt some discomfort, lower sternal area also. She had an episode of shortness of breath. She is known to have hypertension, diabetes, asthma, cholecystectomy, COPD, GERD. She had cardiac cath 02/12/2017 for abnormal stress test, but she was found to have nonobstructive coronary artery disease. Normal ejection fraction of 50%. The patient has slight tenderness in the epigastrium and right mid abdominal quadrant. The patient's lungs are clear. Cardiovascular S1, S2. Troponin is negative. EKG initially showed atrial fibrillation. Now the patient is in regular sinus rhythm, and the patient at home was on metoprolol succinate 50 mg p.o. daily. DIAGNOSES: Abdominal pain with diarrhea and black stools, nausea, nonobstructive coronary artery disease, diabetes mellitus, hypertension, asthma, chronic obstructive pulmonary disease, gastroesophageal reflux disease, atrial fibrillation converted to sinus rhythm. PLAN: We will hold metoprolol, and we will put the patient on sotalol 80 b.i.d., and we will also put Cardizem 30 t.i.d. to maintain sinus rhythm. We will do an echocardiogram. We will monitor the patient, and we will do a repeat EKG. TSH is already 1.93 which is normal. We will follow. Aime Santoro MD
--- NOTE | 2018-04-15 09:51 | PN ---
DATE: 04/14/2018 Addendum to progress note which has been dictated by Phuong Hutton. LOCATION: The patient is in room 373, bed 3. SUBJECTIVE: The patient was admitted with diarrhea and she felt nauseous, but she did not throw up, but she felt discomfort in the stomach. She also complains some chest discomfort. She shows some tenderness in the epigastrium and in the right mid quadrant of the abdomen. The patient is known hypertensive, diabetes, asthma, appendectomy, cholecystectomy, COPD, GERD. The patient had a stress test on 04/09/2017, which was equivocal. Questionable ischemia, so the patient had a cardiac catheterization on 02/12/2017, which showed normal LV ejection fraction of 60% and nonobstructive coronary artery disease and ectatic proximal and mid RCA. The patient was advised to lose weight and cardiac risk factors. So the patient's present symptoms are related to GI and as mentioned above, her catheterization last year failed to show any significant obstructive blockage to coronary artery disease. So we will continue present therapy and the patient should be followed with the GI. The patient had an episode of atrial fibrillation yesterday for which we put her on sotalol 80 every 12 hours and Cardizem 30 every 8 hours. The patient has been maintaining sinus rhythm. This atrial fibrillation was new atrial fibrillation and it had spontaneously converted itself. We will follow with you. Aime Santoro MD
[2018-04-15] MEDS: Nystatin 100,000 Units/gm Topical Pow(15 gm) TOP SCH ×2 (10:02→18:58)
[2018-04-15] MEDS: cefTRIAXone 1 gm 1 GM/100 ML BAG IVPB SCH (10:02)
--- NOTE | 2018-04-15 10:32 | CP.PCM.PN ---
<Edmund Mclaughlin - Last Filed: 04/15/18 18:30> Subjective - Date & Time of Evaluation Date of Evaluation: 04/15/18 Time of Evaluation: 10:29 - Subjective Subjective: seen and examined patient with the use of paraprofessional interpreter. No acute events overnight. She has mild abdominal pain with eating large meals. I discussed the importance of eating small meals throughout the day as well as following up with a admitting supervisor as an outpt. She understood well. Otherwise tolerating diet, no vomiting. Objective - Vital Signs/Intake and Output Vital Signs (last 24 hours): Temp Pulse Resp BP Pulse Ox 97.4 F L 63 20 123/82 95 04/15/18 08:18 04/15/18 10:01 04/15/18 08:18 04/15/18 10:01 04/15/18 08:18 Intake and Output: 04/15/18 04/15/18 06:59 18:59 Intake Total 1180 Output Total 5 Balance 1175 - Medications Medications: Current Medications Acetylcysteine (Acetylcysteine 20%) 4 ml IH BIDRESP DELVIS Last Admin: 04/15/18 07:48 Dose: 4 ml Albuterol/Ipratropium (Duoneb 3 Mg/0.5 Mg (3 Ml) Ud) 3 ml IH [id number] DELVIS Last Admin: 04/15/18 07:48 Dose: 3 ml Diltiazem HCl (Cardizem) 30 mg PO Q8H [facility] Last Admin: 04/15/18 05:54 Dose: 30 mg Famotidine (Pepcid) 40 mg PO HS [facility] Last Admin: 04/14/18 22:02 Dose: 40 mg Hydralazine HCl (Apresoline) 10 mg IVP Q6 PRN PRN Reason: hypertension Hydromorphone HCl (Dilaudid) 0.5 mg IVP Q6H PRN PRN Reason: Pain, severe (8-10) Metronidazole (Flagyl) 500 mg in 100 mls @ 100 mls/hr IVPB Q8 [facility]; Protocol Last Admin: 04/15/18 05:59 Dose: Not Given Ceftriaxone Sodium (Rocephin 1 Gram Ivpb) 1 gm in 100 mls @ 100 mls/hr IVPB DAILY [facility] [place]; Protocol Last Admin: 04/15/18 10:02 Dose: 100 mls/hr Nystatin (Nystop Topical Powder) 1 gm TOP BID [facility] Last Admin: 04/15/18 10:02 Dose: 1 applic Ondansetron HCl (Zofran Inj) 4 mg IVP Q6H PRN PRN Reason: Nausea/Vomiting Sotalol HCl (Betapace) 80 mg PO Q12 [facility] [place] Last Admin: 04/15/18 10:01 Dose: 80 mg - Labs Labs: 04/13/18 08:00 04/13/18 08:00 PT 11.9 SECONDS (9.4-12.5) 04/11/18 12:00 INR 1.03 04/11/18 12:00 APTT 27.4 Seconds (25.1-36.5) 04/11/18 12:00 - Constitutional Appears: Well, Non-toxic - Head Exam Head Exam: NORMAL INSPECTION - Eye Exam Eye Exam: Normal appearance - ENT Exam ENT Exam: Mucous Membranes Moist - Respiratory Exam Respiratory Exam: Clear to Ausculation Bilateral - Cardiovascular Exam Cardiovascular Exam: REGULAR RHYTHM, +S1, +S2 - Neurological Exam Neurological Exam: Alert, Awake, Oriented x3 - Psychiatric Exam Psychiatric exam: Normal Affect, Normal Mood - Skin Skin Exam: Dry, Normal Color Assessment and Plan - Assessment and Plan (Free Text) Assessment: 72 y/o Greenlandic speaking F PMHx HTN, DM, CAD ([facility] single vessel CAD with EF 60%), asthma, GERD p/w sob/CP, abdominal pain, weakness, and dark stools. #Dark Stool; Diarrhea; abdominal pain: Rectal exam negative for melena/brbpr. VSS, HG/Hct stable. No signs of active bleeding, unlikely UGIB. Continue to monitor Hg/Hct and Bowel movements while inpatient. CTAP negative. Diarrhea in setting of longstanding constipation likely overflow diarrhea, however given age, weight loss, and no history of endoscopies patient would warrant EGD/CSPY as outpatient to r/o malignancy. Given reduced sphincter tone, if CSPY normal would pursue further workup for fecal incontinence as outpatient. C.diff negative. #New atrial fibrillation #Chronic constipation #T2DM #GERD #Likely gastroparesis Plan: - No plan for endoscopic procedure; f/u as outpatient for EGD/CSPY - Monitor HGB/HCT, montor BMs - Continue Famotidine, ppi - Titrate laxatives - heart healthy diet - No plan for OAC per cardio <Juanis,Kovil V - Last Filed: 04/15/18 23:24> Objective - Vital Signs/Intake and Output Vital Signs (last 24 hours): Temp Pulse Resp BP Pulse Ox 97.5 F L 64 20 152/86 H 95 04/15/18 15:53 04/15/18 22:07 04/15/18 15:53 04/15/18 22:07 04/15/18 15:53 Intake and Output: 04/15/18 04/16/18 18:59 06:59 Intake Total 880 Balance 880 - Medications Medications: Current Medications Acetylcysteine (Acetylcysteine 20%) 4 ml IH BIDRESP [facility] Last Admin: 04/15/18 19:40 Dose: 4 ml Diltiazem HCl (Cardizem Cd) 120 mg PO DAILY [facility] Last Admin: 04/15/18 13:29 Dose: 120 mg Enoxaparin Sodium (Lovenox) 40 mg SC DAILY [facility]; Protocol Last Admin: 04/15/18 13:30 Dose: 40 mg Famotidine (Pepcid) 40 mg PO HS [facility] Last Admin: 04/15/18 22:09 Dose: 40 mg Hydralazine HCl (Apresoline) 10 mg IVP Q6 PRN PRN Reason: hypertension Metronidazole (Flagyl) 500 mg in 100 mls @ 100 mls/hr IVPB Q8 [facility]; Protocol Last Admin: 04/15/18 22:08 Dose: 100 mls/hr Ceftriaxone Sodium (Rocephin 1 Gram Ivpb) 1 gm in 100 mls @ 100 mls/hr IVPB DAILY [facility] [place]; Protocol Last Admin: 04/15/18 10:02 Dose: 100 mls/hr Levalbuterol HCl (Xopenex) 0.63 mg IH [id number] PRN PRN Reason: Shortness of Breath Last Admin: 04/15/18 19:40 Dose: 0.63 mg Nystatin (Nystop Topical Powder) 1 gm TOP BID [facility] Last Admin: 04/15/18 18:58 Dose: 1 applic Ondansetron HCl (Zofran Inj) 4 mg IVP Q6H PRN PRN Reason: Nausea/Vomiting Pantoprazole Sodium (Protonix Ec Tab) 40 mg PO 0600 [facility] Sotalol HCl (Betapace) 80 mg PO Q12 [facility] Last Admin: 04/15/18 22:07 Dose: 80 mg - Labs Labs: 04/13/18 08:00 04/15/18 21:41 PT 11.9 SECONDS (9.4-12.5) 04/11/18 12:00 INR 1.03 04/11/18 12:00 APTT 27.4 Seconds (25.1-36.5) 04/11/18 12:00 Attending/Attestation - Attestation I have personally seen and examined this patient.: Yes I have fully participated in the care of the patient.: Yes I have reviewed all pertinent clinical information, including history, physical exam and plan: Yes Notes (Text): This is an addendum to GI progress report dictated by the GI Fellow.The patient was seen and examined earlier. Medical records, lab studies, imagings were reviewed. Last 24 hours events reviewed. Agreed with the above treatment plan as outlined in GI Fellow 's notes with the addition of the following On examination abdomen soft non-tender Advance diet Followup hb complete antibiotic course Elective endoscopy procedure 04/15/18 23:23
[2018-04-15] MEDS: diltiaZEM 120 mg/24 Hours CD Cap PO SCH (13:29)
[2018-04-15] MEDS: Enoxaparin 40 mg Syringe SC SCH (13:30)
--- NOTE | 2018-04-15 13:31 | PN ---
DATE: 04/15/2018 SUBJECTIVE: The patient feels okay. Denies any chest pain, shortness of breath, any palpitation. This note is in addition to the note dictated by nurse practitioner, Phuong Hutton. The patient converted to normal sinus on Cardizem at 30 mg as well as sotalol. We will change albuterol to Xopenex. CVS status is stable. History of cardiac catheterization on 02/12/2017 that showed a normal LV function, non-obstructive coronary artery disease. A history of recent echo dated 04/13/2018, that revealed normal LV function, 59%; right ventricle was normal; trace mitral regurgitation; RV systolic pressure 23. We will increase Cardizem CD to 120 mg from today and follow up, and I will DC telemetry and also DC albuterol and change to Xopenex to prevent going back into atrial fibrillation. Since the atrial fibrillation is very short lived, we will leave for now off anticoagulation given the DVT prophylaxis. We will start Cardizem CD 120 mg with holding parameters, hold for SBP less than 130 and heart rate less than 60. We will DC telemetry, possible discharge home. CVS status is stable. No further cardiac workup is warranted or planned. We will start Lovenox 40 with DVT prophylaxis from today. Since the patient is in normal sinus, no long-term anticoagulation is needed. Thank you Dr. Sanchez for providing us the opportunity in taking care of the patient, Hiram Benitez. This note is in addition to dictated by our nurse practitioner. Aime Porras MD
[2018-04-15] MEDS: Levalbuterol 0.63 MG/3 ML Inhal Soln UD IH PRN (19:40)
[2018-04-15] MEDS ORDERED: Multivitamin With Minerals Tab PO STA (21:45)
[2018-04-15 22:05] LABS: TROPONIN I < 0.01 ng/mL
[2018-04-15 22:09] LABS: ALB/GLOB RATIO 1.2 (1.1-1.8); ALBUMIN 3.7 g/dL (3.0-4.8); ALT/SGPT 48 U/L (7-56); AST/SGOT 51 U/L (14-36); BLOOD UREA NITROGEN 9 mg/dL (7-21); CALCIUM 9.2 mg/dL (8.4-10.5); GFR NON-AFRICAN AMERICAN > 60
--- NOTE | 2018-04-15 23:07 | PN ---
DATE: 04/15/2018 PULMONARY PROGRESS NOTE REFERRING PHYSICIAN: Dr. Sanchez SUBJECTIVE: She is sitting up in the bed, feels okay. No palpitation. No nausea, no vomiting. Still has epigastric discomfort. No leg pain or leg swelling. OBJECTIVE: GENERAL: In no acute distress. VITAL SIGNS: Temp is 98, heart rate 69, respiratory rate is 20, blood pressure 142/79, pulse ox 95% on room air. HEENT: Moist mucous membrane. Crowded airway. Mallampati score is 4. NECK: Supple. No JVD. LUNGS: Have a fair airflow with rhonchi. HEART: S1 and S2. ABDOMEN: Soft. Epigastric tenderness. EXTREMITIES: Have no edema. NEUROLOGIC: Awake and alert, follows simple command. MEDICATIONS: She is on Mucomyst inhaled twice a day, hydralazine 10 mg every 6 hours p.r.n., sotalol 80 mg every 12 hours, Cardizem CD 120 mg daily, Flagyl 500 mg every 8 hours, Lovenox 40 mg daily, Pepcid 40 mg at bedtime, Protonix 40 mg daily, Rocephin 1 g IV daily, Xopenex inhaled every 6 hours, Zofran p.r.n. basis. LABORATORY DATA: Reviewed. No lab is available from today other than troponin was less than 0.01. Microbiology; stool for C. diff has been negative. Blood cultures are negative. IMPRESSION AND PLAN: Chronic obstructive lung disease, probably have a gastroesophageal reflux disease, gastroparesis, history of diarrhea, paroxysmal atrial fibrillation, may have sleep apnea syndrome. The patient being followed by Cardiology and GI. Pulmonary point of view, doing well. We will benefit from sleep study as outpatient. Seems like biliary endoscopy to follow up on epigastric pain and diarrhea. Out of bed to chair. When cleared by Cardiology, could be discharged. Thank you and we will follow with you. Aime Smart MD
--- NOTE | 2018-04-15 23:17 | PN ---
DATE: 04/15/2018 SUBJECTIVE: The patient was seen and examined on the bedside on 04/15/2018. was sitting on the bedside. We did transition . The patient is feeling better. Diarrhea is better. Shortness of breath, chest pain are better. PHYSICAL EXAMINATION: VITAL SIGNS: Temperature 98.2, pulse 64, respiratory rate 20, blood pressure 123/60, pulse oximetry 95. HEENT: Head normocephalic, atraumatic. Eyes PERRLA. Extraocular muscles intact. Conjunctivae clear. Nose patent. NECK: Supple. No carotid bruit. No JVD or thyromegaly. CHEST: Bilaterally symmetrical. HEART: S1 and S2 positive. LUNGS: Clear to auscultation. ABDOMEN: Soft. Bowel sounds positive. No organomegaly. EXTREMITIES: No edema. No cyanosis. NEUROLOGICAL: The patient is awake and alert. Moving all 4 extremities. No focal deficits. MEDICATIONS: Acetylcysteine, DuoNeb, diltiazem, Pepcid, hydralazine, hydromorphone, Flagyl, Rocephin, nystatin, Zofran, Betapace. LABORATORY DATA: White blood cells 5.4, hemoglobin 12.2, hematocrit 37.7, platelets 223. Sodium 141, potassium 3.9, BUN 3, creatinine 0.6, glucose 86. ASSESSMENT AND PLAN: Ms. Meliza Benitez is morbidly obese, came with chest pain, shortness of breath, diarrhea, vomiting, generalized weakness one day before that. History of hypertension, diabetes mellitus, asthma, appendectomy, cholecystectomy, chronic obstructive pulmonary disease, gastroesophageal reflux disease, dyspepsia, nonobstructive coronary artery disease, atypical chest pain, rule out cardiac acute coronary syndrome. Initial EKG shows atrial fibrillation. Converted to normal sinus rhythm in 80s. Telemetry now showed normal sinus rhythm. New onset atrial fibrillation. Started Cardizem and sotalol and it is converted back to normal. Awaiting results. Echo is done. New onset atrial fibrillation, now normal sinus rhythm. Started Cardizem and sotalol. No need of anticoagulation for now because it was very short atrial fibrillation. Controlled heart rate. Pepcid 40 mg daily. Cardizem 30 mg daily. Continue sotalol b.i.d. IV antibiotics are ordered. Cco is on the case. Lifestyle modification and weight reduction program. Gastrointestinal and deep venous thrombosis prophylaxis. Repeat labs. We will follow up. Renae Sanchez MD JENNIFER
[2018-04-16] MEDS ORDERED: Potassium Chloride 20 mEq ER Tab PO STA (00:11)
[2018-04-16] MEDS: metroNIDAZOLE IV 500 mg/100 ml 500 MG/100 ML BAG IVPB SCH (05:59)
[2018-04-16] MEDS ORDERED: Pantoprazole 40 mg EC Tab PO SCH (06:00)
--- NOTE | 2018-04-16 07:09 | CP.PCM.PN ---
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 Porras Objective - Vital Signs/Intake and Output Vital Signs (last 24 hours): Temp Pulse Resp BP Pulse Ox 97.5 F L 64 20 152/86 H 95 04/15/18 15:53 04/15/18 22:07 04/15/18 15:53 04/15/18 22:07 04/15/18 15:53 Intake and Output: 04/16/18 04/16/18 06:59 18:59 Intake Total 880 Balance 880 - Medications Medications: Current Medications Acetylcysteine (Acetylcysteine 20%) 4 ml IH BIDRESP [facility] Last Admin: 04/15/18 19:40 Dose: 4 ml Diltiazem HCl (Cardizem Cd) 120 mg PO DAILY [facility] Last Admin: 04/15/18 13:29 Dose: 120 mg Enoxaparin Sodium (Lovenox) 40 mg SC DAILY [facility]; Protocol Last Admin: 04/15/18 13:30 Dose: 40 mg Famotidine (Pepcid) 40 mg PO HS [facility] Last Admin: 04/15/18 22:09 Dose: 40 mg Hydralazine HCl (Apresoline) 10 mg IVP Q6 PRN PRN Reason: hypertension Metronidazole (Flagyl) 500 mg in 100 mls @ 100 mls/hr IVPB Q8 [facility]; Protocol Last Admin: 04/16/18 05:59 Dose: 100 mls/hr Ceftriaxone Sodium (Rocephin 1 Gram Ivpb) 1 gm in 100 mls @ 100 mls/hr IVPB DAILY [facility]; Protocol Last Admin: 04/15/18 10:02 Dose: 100 mls/hr Levalbuterol HCl (Xopenex) 0.63 mg IH [id number] PRN PRN Reason: Shortness of Breath Last Admin: 04/15/18 19:40 Dose: 0.63 mg Nystatin (Nystop Topical Powder) 1 gm TOP BID [facility] Last Admin: 04/15/18 18:58 Dose: 1 applic Ondansetron HCl (Zofran Inj) 4 mg IVP Q6H PRN PRN Reason: Nausea/Vomiting Pantoprazole Sodium (Protonix Ec Tab) 40 mg PO 0600 [facility] Last Admin: 04/16/18 06:00 Dose: 40 mg Sotalol HCl (Betapace) 80 mg PO Q12 [facility] Last Admin: 04/15/18 22:07 Dose: 80 mg - Labs Labs: 04/13/18 08:00 04/15/18 21:41 PT 11.9 SECONDS (9.4-12.5) 04/11/18 12:00 INR 1.03 04/11/18 12:00 APTT 27.4 Seconds (25.1-36.5) 04/11/18 12:00 - Constitutional Appears: Non-toxic, No Acute Distress - Head Exam Head Exam: NORMAL INSPECTION, NORMOCEPHALIC - Eye Exam Eye Exam: Normal appearance Pupil Exam: NORMAL ACCOMODATION - ENT Exam ENT Exam: Mucous Membranes Moist, Normal Exam - Respiratory Exam Respiratory Exam: Clear to Ausculation Bilateral, NORMAL BREATHING PATTERN - Cardiovascular Exam Cardiovascular Exam: +S1, +S2 - GI/Abdominal Exam GI & Abdominal Exam: Soft, Normal Bowel Sounds - Extremities Exam Extremities Exam: Full ROM, Normal Capillary Refill - Neurological Exam Neurological Exam: Alert, Awake, Oriented x3 - Psychiatric Exam Psychiatric exam: Normal Affect, Normal Mood - Skin Skin Exam: Dry, Normal Color, Warm Assessment and Plan - Assessment and Plan (Free Text) Assessment: A 72 year old, polish speaking, poor historian, chart reviewed, morbidly obese female who came in to the ER due to chest pain and shortness of breath an hour prior to admission. 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 She had eaten in a buffet restaurant and since then symptoms occurred.History of hypertension,diabetes,a sthma,appendectomy,cholecystectomy, COPD, GERD,non obstructive coronary artery disease. atypical chest pain, rule out acute coronary syndrome. Initial EKG Atrial fibrillation with RVR 130's.Converted to NSR 80's. Telemetry now, NSR. New onset atrial fibrillation.started Cardizem and Sotalol.No need for anticoagulation for now as patient in normal sinus rhythm.12 lead EKG x 2 days -Normal sinus rhythm. ECHO done- Normal LV size, normal structure,LVEF 59%, Trace MR, no pericardial effusion. Plan: Had episode of shortness of breath and chest pain last night with resolution. Blood pressure was elevated at that time. Given Nitro sublingual with relief. On nasal cannula Troponin negative. Controlled heart rate On Pepcid 40 mg daily, Cardizem 120 mg daily, Sotalol 80 mg BID Continue IV antibiotics as ordered GI and Pulmonary on consult Out patient EGD and colonoscopy as per GI Continue current treatment Continue current medications Lifestyle modification Weight reduction Will follow up Chart reviewed Plan and treatment discussed with Dr. Porras
[2018-04-16] MEDS: Levalbuterol 0.63 MG/3 ML Inhal Soln UD IH PRN (07:12)
[2018-04-16] MEDS: Acetylcysteine 20% Inhal Soln (4ml) IH SCH (07:12)
--- NOTE | 2018-04-16 07:30 | PCM.RRT ---
CHIEF LENDING OFFICER Nurse Assessment - Situation Date: 04/15/18 Time CHIEF LENDING OFFICER was called: 21:06 CHIEF LENDING OFFICER Responder Arrival Time: 21:07 CHIEF LENDING OFFICER Location:: [address] [place] [address] Room Number: [id number] CHIEF LENDING OFFICER Reason for Call: Chest Pain, Respiratory Distress CHIEF LENDING OFFICER Called By: RN - IV IV Inserted during CHIEF LENDING OFFICER?: No - Respiratory Oxygen Delivery Method: Nasal Cannula @L/min Oxygen Flow Rate: 2 Received Nebulizer Treatments:: No Was the Patient Ventilated with Bag/Mask 100% O2?: No Secretions Suctioned?: No Was the Patient Intubated?: No Was the Patient Placed on a Ventilator?: No - Medication Medications Administered During CHIEF LENDING OFFICER: NTG 0.04 sl x 1 dose - Diagnostic Test Ordered EKG: (was done at 20:36) Chest X-Ray: No CT Scan: No - Stat Labs Ordered CHIEF LENDING OFFICER Stat Labs Ordered: TROPONIN CHIEF LENDING OFFICER Other Labs Ordered: com metab CPR started during CHIEF LENDING OFFICER?: No - Vital Signs Vital Sign: Rapid Response Vital Sign Blood Pressure 158/75 Pulse Rate 73 Respiratory Rate 20 Temperature 98 F Oxygen Saturation 97 - Time CHIEF LENDING OFFICER Ended Time CHIEF LENDING OFFICER Ended: 21:27 - Vital Signs at end of CHIEF LENDING OFFICER Vital Signs at end of CHIEF LENDING OFFICER: Rapid Response End Vital Sign Blood Pressure 152/86 Pulse Rate 64 Respiratory Rate 20 O2 Sat by Pulse Oximetry 100 I.Reason for CHIEF LENDING OFFICER - A) Acute Change in Patient: (Select all that apply): Staff member or family is worried about patient - Neurological Status (Select all that apply): Alert, Responsive, Oriented, Verbal - Respiratory Oxygen Delivery Method: Nasal Cannula @L/min Oxygen Flow Rate: 2 - Constitutional Appears: Well, Non-toxic - Head Head Exam: ATRAUMATIC, NORMAL INSPECTION, NORMOCEPHALIC - Cardiovascular Exam Cardiovascular Exam: REGULAR RHYTHM, RRR, +S1, +S2 - GI/Abdominal Exam GI & Abdominal Exam: Soft. absent: Tenderness - Neurological Exam Neurological Exam: Alert, Awake Plan - Assessment of Findings&Treatment Plan Manuel Green DO PGY1 Internal Medicine Maori Physiotherapist CHIEF LENDING OFFICER NOTE Prior to CHIEF LENDING OFFICER patient was evaluated by resident for SOB/CP however upon evaluation SOB/CP had resolved and vitals were stable. CHIEF LENDING OFFICER was called because pt c/o SOB + CP, and family was showing some concern. Upon evaluation heart and lung exam was benign; and patient's general appearance showed some anxiety. She was not diaphoretic or in any acute distress. Her vitals at time of CHIEF LENDING OFFICER were mildly hypertensive 150s/80s in both arms BL w/ a Regular heart rate and satting well on O2 NC. EKG from previous assessment by resident was reviewed; and showed no ischemic changes or abnormalities. CBC/CMP and Troponin were taken - all wnl CHIEF LENDING OFFICER ended w/ reassurance of patient and family.
--- NOTE | 2018-04-16 09:21 | CP.PCM.PN ---
<Patricia Olivarez V - Last Filed: 04/17/18 00:03> Objective - Vital Signs/Intake and Output Vital Signs (last 24 hours): Temp Pulse Resp BP Pulse Ox 98.8 F 61 20 139/82 97 04/16/18 18:00 04/16/18 18:00 04/16/18 18:00 04/16/18 18:00 04/16/18 18:00 - Labs Labs: 04/13/18 08:00 04/15/18 21:41 PT 11.9 SECONDS (9.4-12.5) 04/11/18 12:00 INR 1.03 04/11/18 12:00 APTT 27.4 Seconds (25.1-36.5) 04/11/18 12:00 Attending/Attestation - Attestation I have personally seen and examined this patient.: Yes I have fully participated in the care of the patient.: Yes I have reviewed all pertinent clinical information, including history, physical exam and plan: Yes Notes (Text): This is an addendum to GI progress report dictated by the GI Fellow.The patient was seen and examined earlier. Medical records, lab studies, imagings were reviewed. Last 24 hours events reviewed. Agreed with the above treatment plan as outlined in GI Fellow 's notes with the addition of the following 04/17/18 00:03 <Edmund Mclaughlin - Last Filed: 04/17/18 10:44> Subjective - Date & Time of Evaluation Date of Evaluation: 04/16/18 Time of Evaluation: 09:17 - Subjective Subjective: Rapid response yesterday for SOB and CP. Ultimately patient was found to have anxiety and just needed reassurance. Patient had restful sleep. No complaints this AM. Objective - Vital Signs/Intake and Output Vital Signs (last 24 hours): Temp Pulse Resp BP Pulse Ox 98.2 F 63 20 126/66 94 L 04/16/18 08:42 04/16/18 08:42 04/16/18 08:42 04/16/18 08:42 04/16/18 08:42 Intake and Output: 04/16/18 04/16/18 06:59 18:59 Intake Total 1200 Balance 1200 - Medications Medications: Current Medications Acetylcysteine (Acetylcysteine 20%) 4 ml IH BIDRESP [facility] Last Admin: 04/16/18 07:12 Dose: 4 ml Diltiazem HCl (Cardizem Cd) 120 mg PO DAILY [facility] Last Admin: 04/15/18 13:29 Dose: 120 mg Enoxaparin Sodium (Lovenox) 40 mg SC DAILY [facility]; Protocol Last Admin: 04/15/18 13:30 Dose: 40 mg Famotidine (Pepcid) 40 mg PO HS [facility] Last Admin: 04/15/18 22:09 Dose: 40 mg Hydralazine HCl (Apresoline) 10 mg IVP Q6 PRN PRN Reason: hypertension Metronidazole (Flagyl) 500 mg in 100 mls @ 100 mls/hr IVPB Q8 [facility]; Protocol Last Admin: 04/16/18 05:59 Dose: 100 mls/hr Ceftriaxone Sodium (Rocephin 1 Gram Ivpb) 1 gm in 100 mls @ 100 mls/hr IVPB DAILY [facility]; Protocol Stop: 04/17/18 10:59 Last Admin: 04/15/18 10:02 Dose: 100 mls/hr Levalbuterol HCl (Xopenex) 0.63 mg IH [id number] PRN PRN Reason: Shortness of Breath Last Admin: 04/16/18 07:12 Dose: 0.63 mg Nystatin (Nystop Topical Powder) 1 gm TOP BID [facility] Last Admin: 04/15/18 18:58 Dose: 1 applic Ondansetron HCl (Zofran Inj) 4 mg IVP Q6H PRN PRN Reason: Nausea/Vomiting Pantoprazole Sodium (Protonix Ec Tab) 40 mg PO 0600 [facility] Last Admin: 04/16/18 06:00 Dose: 40 mg Sotalol HCl (Betapace) 80 mg PO Q12 [facility] Last Admin: 04/15/18 22:07 Dose: 80 mg - Labs Labs: 04/13/18 08:00 04/15/18 21:41 PT 11.9 SECONDS (9.4-12.5) 04/11/18 12:00 INR 1.03 04/11/18 12:00 APTT 27.4 Seconds (25.1-36.5) 04/11/18 12:00 - Constitutional Appears: Non-toxic, No Acute Distress - Head Exam Head Exam: NORMAL INSPECTION - ENT Exam ENT Exam: Mucous Membranes Moist - Respiratory Exam Respiratory Exam: Clear to Ausculation Bilateral, NORMAL BREATHING PATTERN - Cardiovascular Exam Cardiovascular Exam: REGULAR RHYTHM, +S1, +S2 - GI/Abdominal Exam GI & Abdominal Exam: Soft, Normal Bowel Sounds. absent: Tenderness - Extremities Exam Extremities Exam: Normal Inspection - Neurological Exam Neurological Exam: Alert, Awake, Oriented x3 - Psychiatric Exam Psychiatric exam: Normal Affect, Normal Mood - Skin Skin Exam: Dry, Normal Color Assessment and Plan - Assessment and Plan (Free Text) Assessment: 72 y/o Maori speaking F PMHx HTN, DM, CAD ([facility] single vessel CAD with EF 60%), asthma, GERD p/w sob/CP, abdominal pain, weakness, and dark stools. #Dark Stool; Diarrhea; abdominal pain: Rectal exam negative for melena/brbpr. VSS, HG/Hct stable. No signs of active bleeding, unlikely UGIB. Continue to monitor Hg/Hct and Bowel movements while inpatient. CTAP negative. Diarrhea in setting of longstanding constipation likely overflow diarrhea, however given age, weight loss, and no history of endoscopies patient would warrant EGD/CSPY as outpatient to r/o malignancy. Given reduced sphincter tone, if CSPY normal would pursue further workup for fecal incontinence as outpatient. C.diff negative. #New atrial fibrillation #Chronic constipation #T2DM #GERD #Likely gastroparesis Plan: - No plan for endoscopic procedure; f/u as outpatient for EGD/CSPY - Monitor HGB/HCT, montor BMs - Continue Famotidine, ppi - Titrate laxatives - heart healthy diet - No plan for OAC per cardio
[2018-04-16] MEDS: diltiaZEM 120 mg/24 Hours CD Cap PO SCH (09:34)
[2018-04-16] MEDS: cefTRIAXone 1 gm 1 GM/100 ML BAG IVPB SCH (09:35)
[2018-04-16] MEDS: Nystatin 100,000 Units/gm Topical Pow(15 gm) TOP SCH (09:35)
[2018-04-16] MEDS: Enoxaparin 40 mg Syringe SC SCH (09:35)
--- NOTE | 2018-04-16 10:19 | CARD ---
APPROVED REPORT Date of service: 04/15/2018 EKG Measurement Heart [id number] <Conclusion> Normal sinus rhythm Possible IMI, age unknown NSSTW changes
[2018-04-16] MEDS ORDERED: Potassium Chloride 20 mEq ER Tab PO ONE (10:47)
--- NOTE | 2018-04-16 15:42 | PN ---
DATE: 04/16/2018 This note is an addition to dictated by nurse practitioner. REASON FOR THE CONSULTATION: Chest pain, atypical; cardiac evaluation. SUBJECTIVE: The patient denies any chest pain, shortness of breath, or any palpitations. The patient had last night epigastric pain and possibly rapid response and repeat troponin was sent as negative. The patient denies any chest pain now. Previously, the patient was in AFib, converted to normal sinus, now is in daily. History of cardiac catheterization on 02/12/2017, that shows normal LV function, nonobstructive coronary artery disease, history of recent echo on 04/13/2018, that revealed normal LV function, ejection fraction 59%, right ventricle normal. Trace mitral regurgitation. RV systolic pressure 23. RECOMMENDATIONS: Continue sotalol. Continue Cardizem, change to CD. Continue DVT prophylaxis. We will sign off and glad to follow up p.r.n. Atypical chest pain, no further cardiac workup is planned or warranted. Okay to be discharged from Cardiology point of view when the patient had GI workup and pulmonary evaluation done. The patient is cleared from Cardiology point of view to be discharged. Last night potassium was 3.4, only given 20, will give another 40. Thank you, Dr. Sanchez, for providing us the opportunity in taking care of the patient, Meliza Cast. Aime Porras MD
[2018-04-16 18:40] VITALS: BP 139/82; PULSE 61; TEMP 98.8; O2SAT 97
--- NOTE | 2018-04-16 23:22 | PN ---
DATE: 04/16/2018 PULMONARY PROGRESS NOTE REFERRING PHYSICIAN: Renae Sanchez MD SUBJECTIVE: The patient is sitting up in a chair, daughter is bedside, being discharged home. Feels better. No headache. No rhinitis. No nausea, no vomiting, diarrhea, leg pain or leg swelling. OBJECTIVE: GENERAL: In no acute distress. VITAL SIGNS: Temperature is 98, heart rate 61, respiratory rate is 20, blood pressure 139/82, pulse ox 97% on room air. HEENT: Moist mucous membrane. Crowded airway. Mallampati score is 4. NECK: Supple. No JVD. LUNGS: Have fair airflow with few rhonchi. HEART: S1 and S2. ABDOMEN: Soft, nontender. No organomegaly. EXTREMITIES: No edema. NEUROLOGIC: Awake and alert. Follows simple commands. LABORATORY DATA: Reviewed. No new lab is available since yesterday. MEDICATION: Reviewed and noted. No new changes in medication reported since yesterday. Microbiology, blood and urine culture is unremarkable. IMPRESSION: Chronic obstructive lung disease, gastroesophageal reflux disease, gastroparesis, paroxysmal atrial fibrillation, may have sleep apnea syndrome. Spoke to the patient's daughter in detail. All the questions answered. Recommended that the patient should have overnight sleep study done, especially with progressive atrial fibrillation and daytime sleepiness, also need pulmonary function test. Thank you and we will follow with you. Aime Smart MD
== END 2018-04-16 19:05 | disposition home or self-care (01) | DRG 392 ==
LOC: ED 10:03 → ERH 13:25 → 3RSO 15:53 → OBSVTOIN 04-12 18:10
PROVIDERS: ADMIT Internal Medicine; ATTEND Internal Medicine
DX: K52.9 Noninfective gastroenteritis and colitis, unspecified (principal); N39.0 Urinary tract infection, site not specified; Z68.42 Body mass index [BMI] 45.0-49.9, adult; E11.43 Type 2 diabetes mellitus with diabetic autonomic (poly)neuropathy; K31.84 Gastroparesis; I25.10 Atherosclerotic heart disease of native coronary artery without angina pectoris; I48.0 Paroxysmal atrial fibrillation; E61.1 Iron deficiency; I10 Essential (primary) hypertension; J44.9 Chronic obstructive pulmonary disease, unspecified; K21.9 Gastro-esophageal reflux disease without esophagitis; K59.09 Other constipation; H40.9 Unspecified glaucoma; N39.490 Overflow incontinence; E66.01 Morbid (severe) obesity due to excess calories; Z79.84 Long term (current) use of oral hypoglycemic drugs

== ENCOUNTER 2018-08-13 10:51 | Observation (INO) | payer MEDICARE, OTHER ==
--- NOTE | 2018-08-13 11:27 | ED PDOC ---
Arrival/HPI - General Chief Complaint: Chest Pain Time Seen by Provider: 08/13/18 11:03 Historian: Patient (Poor Historian ) - History of Present Illness Narrative History of Present Illness (Text): 08/13/18 11:03 Meliza Benitez is a 73 year old female, with a past medical history of hypertension, paroxysmal a-fib, previous cath (2017), and non-obstructive CAD, who presents to the Emergency department complaining of chest pain since two days. Patient states symptoms worsened and lasted through the night but is currently pain free. Patient was sent in to the ER for evaluation by her PMD. Patient denies fevers, chills, headache, dizziness, shortness of breath, dyspnea on exertion, cough, abdominal pain, nausea, vomiting, diarrhea, back pain, neck pain, or any other complaint. Time/Duration: < week Symptom Onset: Sudden Symptom Course: Intermittent Activities at Onset: Light Context: Home Past Medical History - Provider Review Nursing Documentation Reviewed: Yes - Infectious Disease Hx of Infectious Diseases: None - Tetanus Immunization Tetanus Immunization: Unknown - Reproductive Menopause: Yes - Cardiac Hx Hypertension: Yes Hx Pacemaker: No - Pulmonary Hx Asthma: Yes (on nebulizer tx's at home) Hx Chronic Obstructive Pulmonary Disease (COPD): Yes Hx Emphysema: No - Neurological Hx Paralysis: No - HEENT Hx HEENT Disorder: Yes Hx Cataracts: Yes (BILATERAL CATARACTS) Hx Glaucoma: Yes - Renal Hx Renal Disorder: No - Endocrine/Metabolic Hx Diabetes Insipidus: Yes - Hematological/Oncological Hx Blood Transfusions: No - Integumentary Hx Dermatological Disorder: No - Musculoskeletal/Rheumatological Hx Musculoskeletal Disorders: No - Gastrointestinal Hx Gastroesophageal Reflux: No - Genitourinary/Gynecological Hx Genitourinary Disorders: No - Psychiatric Hx Emotional Abuse: No Hx Physical Abuse: No Hx Substance Use: No - Surgical History Hx Appendectomy: Yes Hx Cholecystectomy: Yes - Anesthesia Hx Anesthesia: Yes Hx Anesthesia Reactions: No Hx Malignant Hyperthermia: No - Suicidal Assessment Feels Threatened In Home Enviroment: No Family/Social History - Physician Review Nursing Documentation Reviewed: Yes Family/Social History: No Known Family HX Smoking Status: Never Smoked Hx Alcohol Use: No Hx Substance Use: No Hx Substance Use Treatment: No Allergies/Home Meds Allergies/Adverse Reactions: Allergies cortisone Allergy (Severe, Verified 04/11/18 15:04) ITCHING/SWELLING/RASH Home Medications: Home Meds Medication Instructions Recorded Confirmed Albuterol Sulfate [Proair Hfa] 0.09 mg IH BID 04/11/18 04/11/18 Review of Systems - Physician Review All systems were reviewed & negative as marked: Yes - Review of Systems Constitutional: absent: Fevers, Night Sweats Respiratory: absent: SOB, Cough Cardiovascular: Chest Pain. absent: MUNOZ Gastrointestinal: absent: Abdominal Pain, Diarrhea, Nausea, Vomiting Musculoskeletal: absent: Back Pain, Neck Pain Neurological: absent: Headache, Dizziness Physical Exam - Physical Exam Narrative Physical Exam (Text): 08/13/18 11:03 General: Obese Vital Signs Reviewed: Yes Vital Signs Temp Pulse Resp BP Pulse Ox 08/13/18 11:10 97.2 F L 76 18 148/83 96 Temperature: Afebrile Blood Pressure: Normal Pulse: Regular Respiratory Rate: Normal Appearance: Positive for: Well-Appearing, Non-Toxic, Comfortable Pain Distress: None Mental Status: Positive for: Alert and Oriented X 3 - Systems Exam Head: Present: Atraumatic, Normocephalic Pupils: Present: PERRL Extroacular Muscles: Present: EOMI Conjunctiva: Present: Normal Mouth: Present: Moist Mucous Membranes Neck: Present: Normal Range of Motion Respiratory/Chest: Present: Clear to Auscultation, Good Air Exchange. No: Respiratory Distress, Accessory Muscle Use Cardiovascular: Present: Regular Rate and Rhythm, Normal S1, S2. No: Murmurs Abdomen: No: Tenderness, Distention, Peritoneal Signs Back: Present: Normal Inspection Upper Extremity: Present: Normal Inspection. No: Cyanosis, Edema Lower Extremity: Present: Normal Inspection. No: Edema Neurological: Present: GCS=15, CN II-XII Intact, Speech Normal Skin: Present: Warm, Dry, Normal Color. No: Rashes Psychiatric: Present: Alert, Oriented x 3, Normal Insight, Normal Concentration Medical Decision Making ED Course and Treatment: 08/13/18 11:03 Impression: Patient is a 73 year old female who presents to the Emergency department with complaints of chest pain since two days Differential Diagnosis included but are not limited to: Plan: -- Labs -- EKG -- Chest X-Ray -- Aspirin -- Urinalysis -- Reassess and disposition Prior Visits: Notes and results from previous visits were reviewed. Patient was last seen in the emergency department on Progress Notes: 08/13/18 11:33 Reviewed EKG, shows: NSR 75, No ST / T wave changes. 08/13/18 12:25 Chest X-Ray shows: FINDINGS: LUNGS: No active pulmonary disease. PLEURA: No significant pleural effusion identified, no pneumothorax apparent. CARDIOVASCULAR: No aortic atherosclerotic calcification present. Normal cardiac size. No pulmonary vascular congestion. OSSEOUS STRUCTURES: No significant abnormalities. VISUALIZED UPPER ABDOMEN: Normal. OTHER FINDINGS: None. IMPRESSION: No active disease. 08/13/18 12:[address] Sanchez, requests admission and further consult from Dr. Porras and Dr. Smart 08/13/18 12:59 - RAD Interpretation Radiology Orders: 08/13/18 11:10 CHEST PORTABLE [RAD] Stat - EKG Interpretation Interpreted by ED Physician: Yes Type: 12 lead EKG - Medication Orders Current Medication Orders: Discontinued Medications Aspirin (Aspirin) 325 mg PO STAT STA Stop: 08/13/18 11:10 - Scribe Statement The provider has reviewed the documentation as recorded by the Scribe Rangel Salguero All medical record entries made by the Scribe were at my direction and personally dictated by me. I have reviewed the chart and agree that the record accurately reflects my personal performance of the history, physical exam, medical decision making, and the department course for this patient. I have also personally directed, reviewed, and agree with the discharge instructions and disposition. Disposition/Present on Arrival - Present on Arrival History of DVT/PE: No History of Uncontrolled Diabetes: No Urinary Catheter: No History of Decub. Ulcer: No History Surgical Site Infection Following: None - Disposition Referrals: Renae Sanchez MD [Primary Care Provider] - Follow up with primary Forms: [employer] (Uzbek)
--- NOTE | 2018-08-13 11:50 | RAD ---
Date of service: 08/13/2018 HISTORY: cp COMPARISON: 04/11/2018 FINDINGS: LUNGS: No active pulmonary disease. PLEURA: No significant pleural effusion identified, no pneumothorax apparent. CARDIOVASCULAR: No aortic atherosclerotic calcification present. Normal cardiac size. No pulmonary vascular congestion. OSSEOUS STRUCTURES: No significant abnormalities. VISUALIZED UPPER ABDOMEN: Normal. OTHER FINDINGS: None. IMPRESSION: No active disease.
[2018-08-13 11:57] LABS: BASO # 0.03 K/mm3 (0.0-2.0); BASO % 0.6 % (0.0-3.0); HEMOGLOBIN 13.3 g/dL (12.0-16.0); LYMPH # 1.9 (1.2-3.4); LYMPH % 37.2 % (22.0-35.0); MEAN CELL VOLUME 89.6 fl (80.0-105.0); MEAN CORPUSCULAR HEMOGLOBIN 28.9 pg (25.0-35.0); MEAN CORPUSCULAR HGB CONC 32.2 g/dl (31.0-37.0); MEAN PLATELET VOLUME 10.4 fl (7.0-11.0); MONO # 0.4 (0.1-0.6); MONO % 8.2 % (1.0-6.0); RBC 4.61 10^6/uL (3.5-6.1); RED CELL DISTRIBUTION WIDTH 13.9 % (11.5-14.5); WHITE BLOOD COUNT 5.2 10^3/uL (4.5-11.0)
[2018-08-13 12:05] LABS: INR 1.04; PROTHROMBIN TIME 11.7 SECONDS (9.4-12.5)
[2018-08-13 12:39] LABS: ALB/GLOB RATIO 1.3 (1.1-1.8); ALBUMIN 4.1 g/dL (3.0-4.8); ALT/SGPT 23 U/L (7-56); AST/SGOT 23 U/L (14-36); BLOOD UREA NITROGEN 9 mg/dL (7-21); CALCIUM 9.9 mg/dL (8.4-10.5); GFR NON-AFRICAN AMERICAN > 60
[2018-08-13 12:53] LABS: B-TYPE NATRIURETIC PEPTIDE 105 pg/mL (0-450); TROPONIN I < 0.01 ng/mL
[2018-08-13 20:25] VITALS: BP 140/69; TEMP 98.2; O2SAT 99
--- NOTE | 2018-08-13 22:36 | CARD ---
APPROVED REPORT Date of service: 08/13/2018 EKG Measurement Heart [id number] <Conclusion> Normal sinus rhythm Normal ECG
[2018-08-14 04:09] VITALS: BMI 32.8
[2018-08-14 04:17] VITALS: RESP 20
[2018-08-14 04:23] VITALS: PULSE 77
[2018-08-14] MEDS ORDERED: Pantoprazole 40 mg EC Tab PO SCH (06:00)
[2018-08-14] MEDS ORDERED: diltiaZEM 120 mg/24 Hours CD Cap PO SCH (10:00)
[2018-08-14] MEDS ORDERED: Nystatin 100,000 Units/gm Topical Pow(15 gm) TOP SCH (10:00)
--- NOTE | 2018-08-14 14:15 | CON ---
DATE: 08/14/2018 CARDIOLOGY CONSULTATION REASON FOR CONSULTATION AND FOLLOWUP: Chest pain and cardiac evaluation. BRIEF CLINICAL HISTORY: A 73-year-old female with past medical history significant for hypertension, paroxysmal atrial fibrillation, history of cardiac catheterization, and nonobstructive coronary artery disease, status post cardiac cath in 2017, admitted with the left-sided chest pain, was very tender on examination. PAST MEDICAL HISTORY: Significant for hypertension and diabetes. PAST SURGICAL HISTORY: Significant for appendectomy; cholecystectomy; history of coronary artery disease, nonobstructive, status post cardiac catheterization. FAMILY HISTORY: Noncontributory. SOCIAL HISTORY: Never smoked. No history of substance abuse or alcohol or smoking. ALLERGIES: ALLERGY TO CORTISONE. CURRENT MEDICATIONS: The patient at home is taking Cardizem 120 mg, sotalol 80 mg, Protonix 40 mg daily, nystatin, Pepcid, metronidazole, and albuterol. PREVIOUS CARDIAC WORKUP: As follows; the patient had a cardiac catheterization on 02/12/2017, ejection fraction 70%, nonobstructive coronary artery disease, history of paroxysmal atrial fibrillation, last time admitted with AFib with rapid rate. The patient had an echocardiography done dated 04/13/2018, that revealed ejection fraction 59%, diastolic dysfunction, RV size normal, aortic structures normal, mitral structures normal, trace mitral regurgitation, RV systolic pressure 23, calculated ejection fraction 59%, history of atrial fibrillation on admission 04/11/2018 with the patient converted to normal sinus. REVIEW OF SYSTEMS: As per HPI. PHYSICAL EXAMINATION: As follows: GENERAL: Height of the patient is 5 feet 4 inches, weight of the patient 191 pounds, and body mass index 32.8 kg/m2. VITAL SIGNS: Temperature afebrile, heart rate and blood pressure 140/69. HEENT: PERRLA. Extraocular muscles intact. NECK: Supple. No carotid bruit or thyromegaly. CHEST: On examination, the patient has tenderness on the left side of the chest. HEART: S1 and S2 regular. ABDOMEN: Soft. EXTREMITIES: Clubbing and cyanosis negative. MEDICATIONS AT HOME: The patient was taking Cardizem CD 120 mg daily, Betapace 80 mg twice a day, nystatin, famotidine, metronidazole, and albuterol. LABORATORY DATA: Blood workup; WBC 5.2, hemoglobin 13. , hematocrit 41.3, and platelet count 222. Chemistry shows sodium 141, potassium 4.3, chloride 107, carbon dioxide 28, anion gap of 11, BUN 9, creatinine 0.9. Troponin negative. EKG shows normal sinus; no acute ST-T changes noted. Essentially normal EKG. IMPRESSION: A 73-year-old female with a past medical history significant for obesity, diabetes, hypertension, hyperlipidemia, paroxysmal atrial fibrillation. Last admission in March, the patient was admitted with atrial fibrillation with rapid rate, converted to normal sinus. Since then, the patient is in normal sinus, admitted with chest pain, atypical; tenderness on the chest, so far, troponin is negative; history of cardiac catheterization in 2017; nonobstructive coronary artery disease. Medical treatment recommended. RECOMMENDATIONS: We will start ibuprofen. Continue Cardizem, continue sotalol. Discontinue telemetry. Medical treatment. We will follow with you. Thank you Dr. Sanchez for providing us the opportunity in taking care of the patient, Hiram. Aime Porras MD
--- NOTE | 2018-08-15 01:32 | DS ---
NOTE: I saw the patient only once during this hospitalization. On 08/14/2018, I did a history and physical and now the patient underwent same day home after getting clearance from the System Software Developer. For details, see my H and P of 08/14/2018. Renae Sanchez MD
--- NOTE | 2018-08-15 02:04 | HP ---
DATE OF EXAM: 08/14/2018 The patient was seen and examined at the bedside on 08/14/2018. CHIEF COMPLAINT: Chest pain. HISTORY OF PRESENT ILLNESS: Ms. Meliza Benitez is a 73-year-old female with past medical history of hypertension, paroxysmal atrial fibrillation, previous cath, nonobstructive coronary artery disease, came to the emergency department complaining about chest pain since 2 days. The patient said that symptoms worsened and lasted throughout the night last night. The patient was seen actually in my office and I sent her to [facility] emergency room. No fever. No chills. No hematuria. No hematochezia. No headache. No dizziness. Seen by the ultrasound technician, Dr. Porras. Cardiac enzymes were done. Dr. Porras cleared the patient. According to him, it is musculoskeletal pain and discharged home. Follow up with ultrasound technician and primary care physician as outpatient. Continue same home medication. was on the bedside. PAST MEDICAL HISTORY: As above, hypertension, paroxysmal atrial fibrillation, history of cardiac catheterization, nonobstructive coronary artery disease, COPD, bilateral cataract, history of diabetes insipidus, appendectomy, and cholecystectomy. FAMILY HISTORY: Father and mother noncontributory. HABITS: Never smoked. No drugs. No ethanol. ALLERGIES: THE PATIENT IS NOT ALLERGIC WITH ANY MEDICATIONS EXCEPT CORTISONE. HOME MEDICATIONS: Reviewed by me. REVIEW OF SYSTEMS: The patient was seen and examined at the bedside in the telemetry, was standing on the bedside also. medical lab technician helped me for translation. No fever. No chills. No headache. No dizziness. No hematuria. No hematochezia. No chest pain at this moment. PHYSICAL EXAMINATION: VITAL SIGNS: Temperature 97.2, pulse 76, respiratory rate 18, blood pressure 120/80 , and pulse oximetry 96%. HEENT: Head is normocephalic and atraumatic. Eyes; PERRLA. Extraocular muscles are intact. Conjunctivae clear. Nose patent. NECK: Supple. No carotid bruits, JVD, or thyromegaly. CHEST: Bilaterally symmetrical. HEART: S1 and S2 positive. LUNGS: Clear to auscultation. ABDOMEN: Soft. Bowel sounds present. No organomegaly. EXTREMITIES: No edema. No cyanosis. NEUROLOGIC: The patient is awake, alert, and moving all four extremities. No focal deficits. LABORATORY DATA: White blood cell 5.3, hemoglobin 13.3, hematocrit 41.3, and platelets 222. Sodium 141, potassium 4.3, BUN 9, creatinine 0.6, glucose 150, and magnesium 2.3. AST 23 and ALT 23. Troponin x3 is less than 0.01. ASSESSMENT AND PLAN: Ms. Meliza Benitez is a 73-year-old lady with hyperglycemia, hypermagnesemia, and came with chest pain. Troponin x3 is negative. Seen by Dr. Porras, ultrasound technician. The patient history of hypertension, diabetes mellitus, hypercholesterolemia, and paroxysmal atrial fibrillation. Last admission, the patient was admitted for atrial fibrillation converted to normal sinus rhythm. Since then, the patient is in normal sinus. Admitted with chest pain, it looks like atypical tenderness on the chest. History of cardiac catheterization 2017, nonobstructive coronary artery disease, and according to ultrasound technician, this is musculoskeletal pain. Recommended medical treatment. Ibuprofen given. Continue home medications. Actually ultrasound technician discontinued the telemetry and clear the patient for discharge and discharged the patient. Follow up with the primary care physician and ultrasound technician as outpatient. Renae Sanchez MD MTDD
== END 2018-08-14 11:25 | disposition home or self-care (01) ==
LOC: ED 10:51 → ERH 12:56 → 2RNO 23:35
PROVIDERS: ADMIT Internal Medicine; ATTEND Internal Medicine
DX: R07.89 Other chest pain (principal); I10 Essential (primary) hypertension; I48.0 Paroxysmal atrial fibrillation; E11.65 Type 2 diabetes mellitus with hyperglycemia; E78.00 Pure hypercholesterolemia, unspecified; I25.10 Atherosclerotic heart disease of native coronary artery without angina pectoris; E83.41 Hypermagnesemia; E78.5 Hyperlipidemia, unspecified; H40.9 Unspecified glaucoma; J44.9 Chronic obstructive pulmonary disease, unspecified; I34.0 Nonrheumatic mitral (valve) insufficiency
CPT/HCPCS: 36415; 71045; 80053; 82550; 82948; 83615; 83735; 83880; 84484; 85025; 85610; 85730; 93005; 99283; G0378